=== PATIENT | male | born 1950 | race Caucasian/White ===

== ENCOUNTER 2017-04-23 15:23 | Inpatient (IN) ==
[2017-04-23] MEDS ORDERED: *HR* Adenosine 6 MG/2 ML VIAL IVP ONE ×2 (15:29)
[2017-04-23] MEDS ORDERED: *HR* Dextrose 50 % in Water (Syg) 50 ML SYRINGE IVP PRN ×2 (15:30→19:03)
[2017-04-23] MEDS: 0.9 % Sodium Chloride 1,000 ML IVC SCH ×5 (15:45→23:08)
--- NOTE | 2017-04-23 15:55 | Emergency Department Note ---
Disposition Clinical Impression: UMU (acute kidney injury), Atrial fibrillation with RVR, Lactic acidosis Hypotension Qualifiers: Hypotension type: hypotension due to drug Qualified Code(s): I95.2 - Hypotension due to drugs Disposition: Admitted As Inpatient Condition: Fair Referrals: NO,PCP [Non-Partnered Physician] - Forms: ED Satisfaction Letter Time of Disposition: 18:06 General Adult HPI - General Chief complaint: ED Arrhythmia/Palpitations Stated complaint: SVT/weakness Time Seen by Provider: 04/23/17 15:29 Source: patient, family, EMS Limitations: no limitations Nursing Notes Reviewed: Yes Vital Signs Reviewed: Yes - History of Present Illness HPI Narrative: History of present illness: 67-year-old male via EMS for "SVT". Patient states he is keh-xkwpvlg-wmlhdmnqj diabetic and is "not feeling well" for the past 2-3 days. Some episodes of loose stool nausea but no vomiting. [place] chills but no fever. No ill contacts no trauma no recent medication changes. No new chest pain or shortness of breath. No visual disturbances or skin rashes. No abdominal pain or headache or neck stiffness. No rashes. Just seen in his primary care provider's office yesterday by another provider since his main PCP was on vacation. He stated "everything was okay". Although he still was not feeling well. Upon arrival in the emergency department EMS said that the patient had a heart rate between 160s and 170s. Patient denies any palpitations and states he has never had this before". Patient was emergently had an IV started and we did and we administered 6 mg of IV push adenosine after an EKG and school lunch monitor showed what appeared to be a regular narrow complex supraventricular tachycardia. After the 6 mg of adenosine his heart rate actually went higher in the 200s. And the patient had a prolonged period of "not feeling well". This lasted about a minute. There was no sinus pause noted. At that point the team decided that her proceeding with a larger dose of adenosine was not warranted, she got 15 mg of IV push Cardizem which lowered the patient's blood pressure 78/52, and he is maintaining some tachycardia. We will hold off on any more cardiotonic medicines at this time and give the patient a liter of normal saline and readdress his blood pressure. Admission anticipated. This tachycardia dysrhythmia will be addressed after the pressure stabilizes with IV diltiazem. We have provided 45 minutes of critical care services for this patient at this time. Pain Scale: 0 - Related Data Allergies Allergy/AdvReac Type Severity Reaction Status Date / Time Penicillins Allergy See Verified 04/23/17 15:33 Comments Past Medical History - Past Medical History Medical history: Reports: diabetes, hyperlipidemia, hypertension - Social History Smoking Status: Former smoker Smokeless Tobacco Status: No Alcohol use: Reports: occasionally Drug use: Reports: none Physical Exam - General Limitations: no limitations General appearance: alert Course - Reevaluation(s) Reevaluation #1: After the patient got 15 mg of Cardizem he remained hypotensive in the 90s and mid 80s. Patient got 3 L normal saline still hypotensive. Patient's troponin critically elevated at 0.08, and his when necessary creatinine are elevated at 60 over 2.2. There are no labs for reference comparison. Patient says that despite getting 3 L of normal saline he has not had any urine output yet. Patient is getting a fourth liter of normal saline. And then will begin on the fifth until he has urine output. We will consult with cardiology at that point if his blood pressure and heart rate did not change at that point. I did an additional 35 minutes of critical care services for this patient with admission and anticipated Time: 17:20 Reevaluation #2: Patient is on his fifth liter of normal saline. Still has not felt the urge to urinate and has no trouble breathing his lung ponce are clear. Patient's systolic is about 94/60 diastolic. Patient's pressure was still too low to consider giving IV Cardizem drip at this time. Lactic acid elevated at 2.9. Patient has several things going on persistent hypotension, persistent atrial fibrillation with rapid ventricular response, lactic acidosis. An acute kidney injury. Patient will be admitted. Hospitalist has been paged. Admission pending. Time: 17:58 Reevaluation #3: Discussed case with the hospitalist Dr. Hammer, patient accepted for admission in stable condition Time: 18:05 Vital Signs Temperature 98.2 F 04/23/17 15:24 Pulse Rate 168 04/23/17 15:24 Respiratory Rate 22 04/23/17 15:24 Blood Pressure 129/101 04/23/17 15:24 O2 Sat by Pulse Oximetry 99 04/23/17 15:24 Temperature 98.2 F 04/23/17 15:24 Pulse Rate 164 04/23/17 17:29 Respiratory Rate 20 04/23/17 17:29 Blood Pressure 89/63 04/23/17 17:29 O2 Sat by Pulse Oximetry 100 04/23/17 17:29 Oxygen Delivery Oxygen Delivery Nasal Cannula Medical Decision Making - Medical Records Medical records reviewed: Yes I reviewed the patient's medical records. - Lab Data Lab results reviewed: Yes I reviewed the patient's lab results. Result diagrams: 04/23/17 15:50 04/23/17 15:50 Lab Results 04/23/17 04/23/17 04/23/17 Range/Units 15:50 15:50 15:50 WBC 3.4 L (4.3-11.1) K/mcL RBC 5.50 (4.19-5.50) M/mcL Hgb 15.7 (12.9-16.9) g/dL Hct 46.8 (37.5-50.1) % MCV 85.1 (83.0-100.0) fL MCH 28.5 (28.0-33.3) pg MCHC 33.5 (31.6-35.5) g/dL RDW 15.6 H (11.5-14.5) % Plt Count 81 L (140-400) K/mcL MPV 9.7 (9.4-12.4) fL Seg Neutrophils % 74.0 % Band Neutrophils % 16.0 H (0-4) % Lymphocytes % 4.0 % Monocytes % 6.0 % Neutrophils # 3.1 (1.6-8.9) K/mcL Lymphocytes # 0.1 L (0.6-4.6) K/mcL Monocytes # 0.2 (0.0-1.3) K/mcL Platelet Estimate Decreased L (Normal) VBG pH (7.32-7.42) pH Units VBG pCO2 (41-51) mmHg VBG pO2 (25-40) mmHg VBG HCO3 (21-27) mEq/L Sodium 134 L (136-145) mEq/L Potassium 4.0 (3.5-4.5) mEq/L Chloride 100 (98-109) mEq/L Carbon Dioxide 20 (19-29) mEq/L BUN 60 H (8-26) mg/dL Creatinine 2.21 H (0.72-1.25) mg/dL Est GFR ( Amer) 36 L (> 60) Est GFR (Non-Af Amer) 30 L (> 60) BUN/Creatinine Ratio 27 H (6-26) Glucose 115 H (70-99) mg/dL Calculated Osmolality 296 (280-300) Lactic Acid 2.9 H (0.5-2.2) mmol/L Calcium 9.2 (8.6-10.8) mg/dL Troponin I (0-0.03) ng/mL Beta-Hydroxybutyric Acd 0.90 H (0.02-0.27) mmol/L 04/23/17 04/23/17 Range/Units 15:50 15:50 WBC (4.3-11.1) K/mcL RBC (4.19-5.50) M/mcL Hgb (12.9-16.9) g/dL Hct (37.5-50.1) % MCV (83.0-100.0) fL MCH (28.0-33.3) pg MCHC (31.6-35.5) g/dL RDW (11.5-14.5) % Plt Count (140-400) K/mcL MPV (9.4-12.4) fL Seg Neutrophils % % Band Neutrophils % (0-4) % Lymphocytes % % Monocytes % % Neutrophils # (1.6-8.9) K/mcL Lymphocytes # (0.6-4.6) K/mcL Monocytes # (0.0-1.3) K/mcL Platelet Estimate (Normal) VBG pH 7.31 L (7.32-7.42) pH Units VBG pCO2 44 (41-51) mmHg VBG pO2 18 L (25-40) mmHg VBG HCO3 22.2 (21-27) mEq/L Sodium (136-145) mEq/L Potassium (3.5-4.5) mEq/L Chloride (98-109) mEq/L Carbon Dioxide (19-29) mEq/L BUN (8-26) mg/dL Creatinine (0.72-1.25) mg/dL Est GFR ( Amer) (> 60) Est GFR (Non-Af Amer) (> 60) BUN/Creatinine Ratio (6-26) Glucose (70-99) mg/dL Calculated Osmolality (280-300) Lactic Acid (0.5-2.2) mmol/L Calcium (8.6-10.8) mg/dL Troponin I 0.08 H* (0-0.03) ng/mL Beta-Hydroxybutyric Acd (0.02-0.27) mmol/L - Radiology Data Radiology results reviewed: Yes I reviewed the patient's radiology results. - EKG Data EKG #1 EKG attestation: Yes I reviewed and interpreted this EKG. EKG results narrative: Twelve-lead EKG interpreted without Cardiologic assistance shows a supraventricular rhythm of atrial flutter or tachycardia with rapid ventricular response of 168 bpm. Jainism of 100 ms and QT corrected [address] . [address], T-wave changes noted. No acute changes compared to his prior EKG dated 11/26/2009
[2017-04-23 15:59] LABS: VBG HCO3 22.2 mEq/L (21-27); VBG PH 7.31 pH Units (7.32-7.42)
[2017-04-23 16:01] LABS: Hematocrit 46.8 % (37.5-50.1); Hemoglobin 15.7 g/dL (12.9-16.9); Mean Corpuscular HGB Conc 33.5 g/dL (31.6-35.5); Mean Corpuscular Hemoglobin 28.5 pg (28.0-33.3); Mean Corpuscular Volume 85.1 fL (83.0-100.0); Mean Platelet Volume 9.7 fL (9.4-12.4); Red Cell Distribution Width 15.6 % (11.5-14.5)
[2017-04-23 16:02] LABS: Platelet Count 81 K/mcL (140-400)
[2017-04-23 16:21] LABS: Calcium 9.2 mg/dL (8.6-10.8)
[2017-04-23 16:57] LABS: Lymphocytes # 0.1 K/mcL (0.6-4.6); Monocytes # 0.2 K/mcL (0.0-1.3); Neutrophils # 3.1 K/mcL (1.6-8.9); Platelet Estimate Decreased (Normal)
[2017-04-23 17:05] LABS: Beta-Hydroxybutyric Acid 0.9 mmol/L (0.02-0.27)
[2017-04-23] MEDS ORDERED: 0.9 % Sodium Chloride 1,000 ML IVC ONE ×2 (17:19→17:54)
[2017-04-23] MEDS ORDERED: Acetaminophen 325 MG TABLET PO PRN (18:58)
[2017-04-23] MEDS ORDERED: Naloxone 0.4 MG/ML INJ IVP PRN (18:58)
[2017-04-23] MEDS ORDERED: *HR* Morphine 2 MG/ML SYRINGE IVP PRN (18:58)
[2017-04-23] MEDS ORDERED: Ondansetron 4 MG/2 ML VIAL IVP PRN (18:58)
[2017-04-23] MEDS ORDERED: Dextrose Gel 15 GM PO PRN ×2 (19:03)
[2017-04-23] MEDS ORDERED: D5% in Water 1,000 ML IVC PRN (19:03)
--- NOTE | 2017-04-23 19:13 | Internal Med History&Physical ---
Date of Encounter: 04/23/17 Time of Encounter: 18:30 Assessment and Plan (1) Atrial fibrillation with RVR Current visit: Yes Status: Acute Atrial fibrillation with RVR - new onset - unclear etiology Continue IV fluids, IV Cardizem drip Hold anticoagulation due to melena Cardiology consult Troponin - 0.08, trend Chest x-ray - no acute process Echocardiogram pending Cardiac telemetry, continuous pulse ox Labs in a.m. Repeat EKG in a.m. (2) UMU (acute kidney injury) Current visit: Yes Status: Acute Acute kidney injury likely secondary to dehydration and volume depletion due to diarrhea and poor by mouth intake Continue IV fluids Labs in a.m. (3) Hypotension Current visit: Yes Status: Acute Hypotension - likely due to volume depletion/dehydration and diarrhea improving with fluid boluses Continue IV fluids, monitor closely Qualifiers: Hypotension type: unspecified hypotension type Qualified Code(s): I95.9 - Hypotension, unspecified (4) Melena Current visit: Yes Status: Acute Diarrhea with dark stool, no bright red blood - will need further evaluation Fecal Hemoccult pending C. 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 De La Rosa is a 67 year old male with PMH of diabetes, hypertension and hyperlipidemia. He presents to the ED with complaints of generalized weakness and lightheadedness, palpitations and dizziness. Patient states symptoms started on the April. Patient does complain of intermittent palpitations. Symptoms have gradually worsened. He decided come in today because he had shortness of breath on exertion and his lightheadedness and generalized weakness was worsening. Patient denies chest pain. Patient also complains that for the past 2-3 days he has had diarrhea with dark stool. No blood in stool. He denies abdominal pain or vomiting. Patient states he has not experienced symptoms like this before. No alleviating factors. No other associated symptoms. Initial evaluation revealed A. fib with RVR. Patient was also hypotensive and his creatinine and troponin are elevated. He has been given fluid boluses in the ER. On examination patient is awake and alert. Not in any distress. Able to provide history. His son is at bedside. Patient is being admitted for atrial fibrillation with RVR and to further evaluate his melena. Cardiology consult. Serial H&H. Continue IV fluids. We will need to hold anticoagulation as patient has melena. Continue home medications. Patient and son have been explained about his guarded condition and plan of care. Understood and agreed. No unanswered questions. CODE STATUS full code. Past Med Surg Social Fam HX - Past Medical History Medical history: diabetes, hyperlipidemia, hypertension - Past Surgical History Surgical History: orthopedic, other - Social History Smoking Status: Former smoker Smokeless Tobacco Status: No Alcohol use: occasionally Drug use: none Internal Medicine - H&P: Meds Aspirin 325 mg PO QAM 04/23/17 [History] Atorvastatin [Lipitor] 40 mg PO QPM 04/23/17 [History] Azithromycin [Azithromycin 6-Tab Pack] 250 mg PO PER PKG DI 04/23/17 [History] GlipiZIDE [Glipizide Xl] 5 mg PO QAM 04/23/17 [History] Lisinopril [Zestril] 20 mg PO QPM 04/23/17 [History] Loratadine [Claritin] 10 mg PO QAM 04/23/17 [History] Metformin HCl [Glucophage] 1,000 mg PO QAM 04/23/17 [History] Multivit-Min/FA/Lycopen/Lutein [Centrum Silver Tablet] 1 each PO QAM 04/23/17 [ History] metFORMIN [Glucophage] 500 mg PO QPM 04/23/17 [History] Allergies Penicillins Allergy (Verified 04/23/17 15:33) See Comments All Systems PM: A 10-system review of systems was performed and is negative for pertinent findings except as documented above in the HPI. - Constitutional Constitutional: fatigue, weakness, no fever(s) - EENT Eyes: no blurry vision - Cardiovascular Cardiovascular ROS IM: diaphoresis, dyspnea, dyspnea on exertion, lightheadedness, no chest pain, no orthopnea, no syncope - Respiratory Respiratory: dyspnea, dyspnea on exertion, no cough, no hemoptysis, no wheezing , no chest congestion - Gastrointestinal Gastrointestinal: diarrhea, loose stools, melena, no abdominal pain, no bloating , no cramping, no hematemesis, no hematochezia, no nausea, no vomiting - Genitourinary Genitourinary ROS male: difficulty urinating - Musculoskeletal Musculoskeletal ROS IM: no arthralgias - Neurological Neurological ROS: no abnormal gait, no abnormal speech, no dizziness, no loss of vision, no memory loss - Constitutional Vitals: Temp Pulse Resp BP Pulse Ox 98.2 F 163 20 98/70 100 04/23/17 15:24 04/23/17 17:42 04/23/17 18:45 04/23/17 18:45 04/23/17 17:42 General appearance: Present: A&O X 3, pleasant, no acute distress, answers questions appropriately Exam: Ill appearing, generalized weakness - Head Head exam: Present: atraumatic - Eye Eye exam: Present: EOMI, scleral icterus (mild) - ENT ENT exam: Present: mucous membranes dry - Neck Neck exam general surgery: Present: supple - Respiratory Respiratory exam: Present: CTAB. Absent: rales, rhonchi, wheezes, tachypnea - Cardiovascular Cardiovascular exam: Present: irregular rhythm, +S1, +S2, systolic murmur, tachycardia - GI/Abdominal GI/Abdominal exam: Present: soft, tenderness (mild epigastric and periumbilical) . Absent: distended, firm, guarding, rebound, rigid - Extremities Exam Extremities exam: Present: pedal edema (b/l 2+ pitting, with chronic stasis dermatitis), radial pulses palpable and symetrical. Absent: cyanotic, tenderness - Neurological Exam Neurological exam: Present: alert, oriented X3, no focal deficits Internal Med - H&P Results - Labs CBC & Chem 7: 04/23/17 15:50 04/23/17 15:50
[2017-04-23 20:05] LABS: Hemoglobin A1C 5.4 %
[2017-04-23 20:38] LABS: Bilirubin,Urine Small (Negative); Blood,Urine Negative (Negative); Clarity,Urine Cloudy (Clear); Color,Urine Dark Yellow (Yellow); Glucose,Urine (UA) Normal (Normal); Ketones,Urine Negative (Negative); Leukocyte Esterase,Urine Negative (Negative); Nitrite,Urine Negative (Negative); PH,Urine 5.5 pH Units (5.0-8.0); Protein,Urine Trace mg/dL (Neg-Trace); Specific Gravity,Urine 1.022 (1.010-1.025); Urobilinogen,Urine Normal (Normal)
[2017-04-23 20:41] LABS: Bacteria,Urine None Seen per hpf (None-Few); Squamous Epithelial Cell,Urine Many per lpf (None-Few)
[2017-04-23 20:51] LABS: Hematocrit 42.2 % (37.5-50.1)
[2017-04-23 20:54] LABS: Hyaline Casts,Urine Moderate per lpf (None-Few)
[2017-04-23 20:57] LABS: INR 1.1; Prothrombin Time 11.6 Seconds (9.4-12.1)
[2017-04-23 21:03] LABS: Hemoglobin 14.2 g/dL (12.9-16.9)
[2017-04-23 21:08] LABS: Albumin 3.1 g/dL (3.5-5.0); Albumin/Globulin Ratio 1.1 (1.1-2.2); Bilirubin,Direct 0.9 mg/dL (0.0-0.5); Bilirubin,Indirect 1.1 mg/dL (0.0-1.2); Globulin 2.9 g/dL (2.4-3.5); Magnesium 1.5 mg/dL (1.6-2.6)
[2017-04-23] MEDS ORDERED: Insulin LISPRO 300 UNITS/3 ML VIAL SQ SCH (21:09)
[2017-04-23] MEDS ORDERED: Magnesium Sulfate 2 GM in D5% in Water 100 ML IVPB ONE (21:12)
[2017-04-23] MEDS ORDERED: Amiodarone Premix 150 MG/100 ML BAG IVPB ONE (21:32)
[2017-04-23] MEDS ORDERED: Amiodarone Premix 360 MG/200 ML BAG IVC ONE (21:32)
[2017-04-23] MEDS: Aspirin 325 MG TABLET PO SCH (21:32)
[2017-04-23] MEDS: Pantoprazole 40 MG VIAL IVP SCH (21:32)
--- NOTE | 2017-04-23 21:43 | Event Note ---
Date of Encounter: 04/23/17 Time of Encounter: 21:41 I was paged by the nurse due to concerns for elevated heart rate with hypotension. The patient was admitted this evening with Lakeisha burns with RVR and was started on a Cardizem drip. On Cardizem drip at 5 mg an hour the patient's heart rate was sustaining in the 140s to 160s with a mean arterial pressure in the high 60s however when this was attempted to titrate up to 7.5 mg per hour the patient's mean arterial pressure dropped into the 40s. I examined the patient he was asymptomatic at this time other than a generalized feeling of unwell. He denied headache, lightheadedness, dizziness, chest pain, shortness of breath, palpitations. Will discontinue Cardizem drip and start IV amiodarone.
[2017-04-23] MEDS ORDERED: Amiodarone Premix 360 MG/200 ML BAG IVC SCH ×2 (21:45→22:30)
[2017-04-24] MEDS ORDERED: MetroNIDAZOLE 500 MG/100 ML 500 MG/100 ML BAG IVPB SCH
[2017-04-24] MEDS ORDERED: Insulin LISPRO 300 UNITS/3 ML VIAL SQ SCH
[2017-04-24 01:23] LABS: Basophils % 0.5 %
[2017-04-24 01:25] LABS: Hematocrit 37.4 % (37.5-50.1); Hemoglobin 12.8 g/dL (12.9-16.9); Immature Granulocytes % 0.5 % (0-4); Lymphocytes # 0.3 K/mcL (0.6-4.6); Lymphocytes % 15.9 %; Mean Corpuscular HGB Conc 34.2 g/dL (31.6-35.5); Mean Corpuscular Hemoglobin 29.8 pg (28.0-33.3); Mean Platelet Volume 10.5 fL (9.4-12.4); Monocytes # 0.2 K/mcL (0.0-1.3); Monocytes % 10.1 %; Neutrophils # 1.5 K/mcL (1.6-8.9); Red Cell Distribution Width 15.7 % (11.5-14.5)
[2017-04-24 01:26] LABS: Platelet Count 83 K/mcL (140-400)
[2017-04-24 01:28] LABS: INR 1.1; Prothrombin Time 12.1 Seconds (9.4-12.1)
[2017-04-24 01:37] LABS: Alanine Aminotransferase 80 Units/L (0-55); Albumin 2.7 g/dL (3.5-5.0); Alkaline Phosphatase 47 Units/L (38-126); Aspartate Amino Transferase 86 Units/L (5-34); BUN/Creatinine Ratio 36 (6-26); Bilirubin,Total 1.6 mg/dL (0.2-1.2); Carbon Dioxide 18 mEq/L (19-29); Chloride 110 mEq/L (98-109); Chol/HDL Ratio 6.4 (0-4.9); Globulin 2.7 g/dL (2.4-3.5); Glucose 120 mg/dL (70-99); HDL Cholesterol 12 mg/dL (40-59); LDL Cholesterol,Calculated 13 mg/dL (0-99); Magnesium 2.2 mg/dL (1.6-2.6); Osmolality,Calculated 294 (280-300); Potassium 3.8 mEq/L (3.5-4.5); Sodium 135 mEq/L (136-145); Total Protein 5.4 g/dL (6.0-8.3); Triglycerides 261 mg/dL (< 150); eGFR For African Americans > 60 (> 60); eGFR For Non-African Americans 53 (> 60)
[2017-04-24 01:38] LABS: Blood Urea Nitrogen 48 mg/dL (8-26); Calcium 7.4 mg/dL (8.6-10.8); Cholesterol 77 mg/dL (< 200)
[2017-04-24 01:42] LABS: Platelet Estimate Decreased (Normal)
--- NOTE | 2017-04-24 07:40 | Internal Med Progress Note ---
Date of Encounter: 04/24/17 Time of Encounter: 07:35 - Assessment and plan (1) GIB (gastrointestinal bleeding) Current Visit: Yes Status: Acute Assessment and plan: Monitor hemoglobin and consider endoscopy if worsening Qualifiers: GI bleed type/associated pathology: melena Qualified Code(s): K92.1 - Melena (2) Leucopenia Current Visit: Yes Status: Acute Assessment and plan: Monitor CBC Qualifiers: Qualified Code(s): D72.819 - Decreased white blood cell count, unspecified (3) UMU (acute kidney injury) Current Visit: Yes Status: Acute Assessment and plan: Acute kidney injury versus chronic kidney disease. Monitor renal function and avoid nephrotoxins, trying to hydrate patient (4) Hypotension Current Visit: Yes Status: Acute Assessment and plan: Ointment to hydrate patient and see if it is mainly due to hypovolemia or if sepsis is involved Qualifiers: Hypotension type: unspecified hypotension type Qualified Code(s): I95.9 - Hypotension, unspecified (5) Atrial fibrillation with RVR Current Visit: Yes Status: Acute Assessment and plan: Currently on amiodarone and Cardizem drip but may need some beta blockers also to continue monitoring. 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 fib with RVR, melena, diarrhea, UMU and hypotension. Patient is started on IV Cardizem and IV amiodarone and IV Protonix. Patient is hydrated very well. His hemoglobin dropped only 2 points from 14-12 however leukocyte count and platelets have been dropped significantly to. This could be just heme dilution effect but considering the fact that patient is hypertensive and has abnormal LFTs and concerned about possibility of sepsis therefore I will go ahead and draw 2 blood cultures and start patient on IV Rocephin and Flagyl. Allergies to penicillin noted therefore we will keep an eye, also if leukopenia worsen then we will take off Rocephin. For DVT prophylaxis patient is on SCDs. Patient seems to be diaphoretic but overall he reports that he is feeling better with hydration. Will continue current treatment however still quite concerned about possibility of infection. - Constitutional Vitals: Temp Pulse Resp BP Pulse Ox 98.0 F 135 16 105/74 100 04/24/17 04:49 04/24/17 04:49 04/24/17 04:49 04/24/17 04:49 04/24/17 04:49 General appearance: Present: A&O X 3, pleasant, no acute distress, answers questions appropriately - Head Head exam: Present: atraumatic, normocephalic - Eye Eye exam: Present: PERRL, conjuntiva pink, sclera anicteric Pupils: Present: PERRL - Neck Neck exam general surgery: Present: supple, trachea midline. Absent: lymphadenopathy - Respiratory Respiratory exam: Present: CTAB. Absent: accessory muscle use, rales, rhonchi, wheezes - Cardiovascular Cardiovascular exam: Present: RRR, +S1, +S2. Absent: diastolic murmur, gallop, rubs, systolic murmur - GI/Abdominal GI/Abdominal exam: Present: normal bowel sounds, soft, no peritoneal signs. Absent: distended, tenderness - Extremities Exam Extremities exam: Present: warm, radial pulses palpable and symetrical. Absent : calf tenderness, cyanotic, pedal edema - Neurological Exam Neurological exam: Present: CN II-XII intact, oriented X3, no focal deficits. Absent: pronater drift, facial droop, speech deficit - Skin Skin exam: Present: dry, intact Internal Medicine: Result - Labs CBC & Chem 7: 04/24/17 00:55 04/24/17 00:55 Labs: Short CBC 04/23/17 04/24/17 Range/Units 20:33 00:55 WBC 2.1 L (4.3-11.1) K/mcL Hgb 14.2 D 12.8 L (12.9-16.9) g/dL Hct 42.2 37.4 L (37.5-50.1) % Plt Count 83 L (140-400) K/mcL Neutrophils # 1.5 L (1.6-8.9) K/mcL BMP 04/24/17 00:55 Sodium 135 L Potassium 3.8 Chloride 110 H Carbon Dioxide 18 L BUN 48 H D Creatinine 1.34 H Glucose 120 H Calcium 7.4 L D Cardiac Enzymes 04/23/17 04/24/17 04/24/17 Range/Units 20:33 00:55 06:52 Troponin I 0.08 H* 0.07 H* 0.04 H* (0-0.03) ng/mL Liver Function 04/23/17 04/24/17 Range/Units 20:33 00:55 Total Bilirubin 2.0 H 1.6 H (0.2-1.2) mg/dL Direct Bilirubin 0.9 H (0.0-0.5) mg/dL AST 90 H 86 H (5-34) Units/L ALT 87 H 80 H (0-55) Units/L Alkaline Phosphatase 53 47 (38-126) Units/L Albumin 3.1 L 2.7 L (3.5-5.0) g/dL Urine 04/23/17 Range/Units 20:17 Urine Color Dark Yellow (Yellow) Urine Clarity Cloudy A (Clear) Urine pH 5.5 (5.0-8.0) pH Units Ur Specific [place] 1.022 (1.010-1.025) Urine Protein Trace (Neg-Trace) mg/dL Urine Glucose (UA) Normal (Normal) mg/dL - ABG Interpretation ABG results: PT/INR, D-dimer PT 12.1 Seconds (9.4-12.1) 04/24/17 00:55 - VTE Documentation of Mechanical Device: Intermittent pneumatic compression device Consult Discharge Plan - Plan Referrals: Yan Villavicencio DO [Primary Care Provider] -
[2017-04-24] MEDS: 0.9 % Sodium Chloride 1,000 ML IVC SCH ×7 (07:52→23:47)
[2017-04-24] MEDS: Insulin LISPRO 300 UNITS/3 ML VIAL SQ SCH ×4 (08:16→21:34)
[2017-04-24] MEDS: MetroNIDAZOLE 500 MG/100 ML 500 MG/100 ML BAG IVPB SCH ×3 (09:42→23:41)
[2017-04-24] MEDS: Pantoprazole 40 MG VIAL IVP SCH (09:45)
[2017-04-24] MEDS: Aspirin 325 MG TABLET PO SCH (09:48)
[2017-04-24] MEDS: Multivit/Ca/Min/Fe/FA 1 TAB TABLET PO SCH (09:48)
--- NOTE | 2017-04-24 11:23 | Cardiology Consult Note ---
<YossiChrista Rodriguez - Last Filed: 04/24/17 13:02> Date of Encounter: 04/24/17 Time of Encounter: 08:00 Assessment and Plan (1) Atrial fibrillation with RVR Current Visit: Yes Status: Acute New onset atrial fibrillation/flutter--unclear etiology and chronicity. Flu like symptoms for nearly 1 week. Pancytopenia noted. Lactic acid 2.9. Rate remains uncontrolled--BP improved after IVF given (5 liters in ED); hypotension likely d/t dehydration. Mag=1.5, improved after replacement. Potassium stable, will add TSH. Recommend rate control strategy. Betablocker started this AM. Amiodarone not ideal d/t unable to anticoagulate, will change to cardizem gtt. Titrate to keep HR less than 100 Anticipate difficulty controlled rate until underlying issue has resolved. CHA2Ds Vasc= 3 (HTN, DMII, age); unfortunately not a candidate for AC due to melena, + occult stool, and thrombocytopenia. Continue asa only. May consider trial of AC in the future if melena resolves/GI work-up complete. (2) Elevated troponin Current Visit: Yes Status: Acute Mild, adynamic troponin elevation in the setting of afib/flutter with RVR, UMU, and GI bleed. This likely represents demand ischemia, patient is chest pain free. Continue asa, statin, and betablocker. Echocardiogram pending. (3) UMU (acute kidney injury) Current Visit: Yes Status: Acute Baseline kidney function unknown. UMU upon presentation, kidney function improved this AM. Defer mgmt to primary service. (4) GIB (gastrointestinal bleeding) Current Visit: Yes Status: Acute Defer further mgmt to primary service. Recommend GI evaluation. Qualifiers: GI bleed type/associated pathology: melena Qualified Code(s): K92.1 - Melena Discussion w patient/family: The assessment and plan as outlined above was discussed with the patient and/or family members who expressed understanding and agreement. All questions were answered. Thank you for involving us in the care of your patient. Please call with any questions. The patient will be discussed and reviewed with Dr. Goss; changes to be made accordingly. History of Present Illness Consult date: 04/24/17 Requesting physician: Jeremiah Blanco Consult reason: Afib/flutter Chief complaint: Weakness History of present illness: Mr. De La Rosa is a 67 year old male with PMHx significant for DMII, HTN, HLD, and suspected PVD who presented to the ED with 3-4 day history of generalized weakness, fatigue, and malaise. He reports poor po intake since Wednesday, reports diarrhea. Upon arrival to ED, he was hypotensive and tachycardiac and given a total of 5L of fluid. He was given IV adenosine which reportedly did not improve HR, was then given IV cardizem and hypotension worsened. UMU noted upon admission, occult stool was positive. H/H stable. He was then started on amiodarone gtt and transferred to the floor. Past Med Surg Social Fam HX - Past Medical History Attestation: Yes The following information was validated with the patient. Source: patient Medical history: diabetes, hyperlipidemia, hypertension - Past Surgical History Surgical History: herniorrhaphy, orthopedic, other - Social History Smoking Status: Former smoker Smokeless Tobacco Status: No Alcohol use: occasionally Drug use: none Medications and Allergies Aspirin 325 mg PO QAM 04/23/17 [History] Atorvastatin [Lipitor] 40 mg PO QPM 04/23/17 [History] Azithromycin [Azithromycin 6-Tab Pack] 250 mg PO PER PKG DI 04/23/17 [History] GlipiZIDE [Glipizide Xl] 5 mg PO QAM 04/23/17 [History] Lisinopril [Zestril] 20 mg PO QPM 04/23/17 [History] Loratadine [Claritin] 10 mg PO QAM 04/23/17 [History] Metformin HCl [Glucophage] 1,000 mg PO QAM 04/23/17 [History] Multivit-Min/FA/Lycopen/Lutein [Centrum Silver Tablet] 1 each PO QAM 04/23/17 [ History] metFORMIN [Glucophage] 500 mg PO QPM 04/23/17 [History] Allergies bee venom protein (honey bee) Allergy (Verified 04/24/17 07:00) See Comments Penicillins Allergy (Verified 04/23/17 15:33) See Comments All Systems Review: A 10-system review of systems was performed and is negative for pertinent findings except as documented above in the HPI. - Cardiovascular Cardiovascular: as per HPI Physical Examination Vital Signs, Last 4 Hours Temp Pulse Resp BP Pulse Ox 04/24/17 10:00 111 111/77 100 04/24/17 09:30 121 88/66 04/24/17 08:45 132 119/90 04/24/17 07:59 98 F 128 18 112/78 99 General: Conversant, Other (appears diaphoretic, acutely ill) HEENT: Atraumatic, Normocephaly Cardiac: Other (irregularly irregular) Lungs: Normal Breath Sounds Neuro: Alert and responsive Abdomen: Soft Skin: No rashes noted on visualized skin Musculoskeletal: No Chest Wall Tenderness Extremities: Other (signficant discoloration to BLE (dark purple in appearance) ; patient states chronic) Results 04/24/17 00:55 04/24/17 00:55 Lab Results 04/23/17 04/23/17 04/23/17 20:33 20:33 20:33 WBC Hgb Hct Plt Count INR 1.1 Sodium Potassium Chloride Carbon Dioxide BUN Creatinine Glucose Calcium Magnesium Total Bilirubin AST ALT Alkaline Phosphatase Troponin I 0.08 H* B-Natriuretic Peptide 172 H 04/23/17 04/23/17 04/24/17 20:33 20:33 00:55 WBC Hgb 14.2 D Hct 42.2 Plt Count INR Sodium Potassium Chloride Carbon Dioxide BUN Creatinine Glucose Calcium Magnesium 1.5 L Total Bilirubin 2.0 H AST 90 H ALT 87 H Alkaline Phosphatase 53 Troponin I 0.07 H* B-Natriuretic Peptide 04/24/17 04/24/17 04/24/17 00:55 00:55 00:55 WBC 2.1 L Hgb 12.8 L Hct 37.4 L Plt Count 83 L INR 1.1 Sodium 135 L Potassium 3.8 Chloride 110 H Carbon Dioxide 18 L BUN 48 H D Creatinine 1.34 H Glucose 120 H Calcium 7.4 L D Magnesium 2.2 Total Bilirubin 1.6 H AST 86 H ALT 80 H Alkaline Phosphatase 47 Troponin I B-Natriuretic Peptide 04/24/17 06:52 WBC Hgb Hct Plt Count INR Sodium Potassium Chloride Carbon Dioxide BUN Creatinine Glucose Calcium Magnesium Total Bilirubin AST ALT Alkaline Phosphatase Troponin I 0.04 H* B-Natriuretic Peptide - Imaging and Cardiology Echo: pending Other Results: 12 hour tele: avg HR 130 afib - EKG Interpretation EKG results cardiology: personally reviewed Consult Discharge Plan - Plan Referrals: Yan Villavicencio DO [Primary Care Provider] - <Dorita Goss - Last Filed: 04/24/17 16:53> Date of Encounter: 04/24/17 Assessment and Plan Discussion w patient/family: The assessment and plan as outlined above was discussed with the patient and/or family members who expressed understanding and agreement. All questions were answered. Thank you for involving us in the care of your patient. Please call with any questions. History of Present Illness History of present illness: Mr. De La Rosa is a 67 year old male All Systems Review: A 10-system review of systems was performed and is negative for pertinent findings except as documented above in the HPI. Physical Examination Vital Signs, Last 4 Hours Temp Pulse Resp BP Pulse Ox 04/24/17 16:32 115 04/24/17 16:28 106 112/84 04/24/17 16:06 126 116/86 04/24/17 15:30 121 117/67 04/24/17 15:23 128 04/24/17 15:10 98.0 F 128 16 110/77 99 04/24/17 14:36 122 117/63 04/24/17 14:00 124 100/68 04/24/17 13:31 118 113/81 04/24/17 13:00 117 65/39 Results 04/24/17 00:55 04/24/17 00:55 Lab Results 04/23/17 04/23/17 04/23/17 20:33 20:33 20:33 WBC Hgb Hct Plt Count INR 1.1 Sodium Potassium Chloride Carbon Dioxide BUN Creatinine Glucose Calcium Magnesium Total Bilirubin AST ALT Alkaline Phosphatase Troponin I 0.08 H* B-Natriuretic Peptide 172 H 04/23/17 04/23/17 04/24/17 20:33 20:33 00:55 WBC Hgb 14.2 D Hct 42.2 Plt Count INR Sodium Potassium Chloride Carbon Dioxide BUN Creatinine Glucose Calcium Magnesium 1.5 L Total Bilirubin 2.0 H AST 90 H ALT 87 H Alkaline Phosphatase 53 Troponin I 0.07 H* B-Natriuretic Peptide 04/24/17 04/24/17 04/24/17 00:55 00:55 00:55 WBC 2.1 L Hgb 12.8 L Hct 37.4 L Plt Count 83 L INR 1.1 Sodium 135 L Potassium 3.8 Chloride 110 H Carbon Dioxide 18 L BUN 48 H D Creatinine 1.34 H Glucose 120 H Calcium 7.4 L D Magnesium 2.2 Total Bilirubin 1.6 H AST 86 H ALT 80 H Alkaline Phosphatase 47 Troponin I B-Natriuretic Peptide 04/24/17 06:52 WBC Hgb Hct Plt Count INR Sodium Potassium Chloride Carbon Dioxide BUN Creatinine Glucose Calcium Magnesium Total Bilirubin AST ALT Alkaline Phosphatase Troponin I 0.04 H* B-Natriuretic Peptide - Attending Attestation I examined this patient and my medical decision-making was reviewed with the MECHANIC HELPER/PA/Advanced Practice Nurse/Resident Physician. I agree with the documented findings, disposition and treatment plan. Mr. De La Rosa presents with newly discovered AF/AFL RVR in setting of flu like symptoms for the past week. Noted on labs is pancytopenia of unclear etiology. Will defer to primary team for further evaluation. Recommend rate control strategy at this time and treatment of underlying inciting etiology. Not an ideal candidate for anticoagulation given concern for GIB and stool occult positive. Agree with low dose aspirin at this time until further GI workup.
[2017-04-25 01:24] LABS: Basophils % 0.4 %; Red Cell Distribution Width 15.3 % (11.5-14.5)
[2017-04-25 01:26] LABS: Eosinophils % 1.7 %; Hematocrit 36.7 % (37.5-50.1); Hemoglobin 12.3 g/dL (12.9-16.9); Immature Granulocytes % 0.4 % (0-4); Lymphocytes # 0.6 K/mcL (0.6-4.6); Lymphocytes % 25.2 %; Mean Corpuscular HGB Conc 33.5 g/dL (31.6-35.5); Mean Corpuscular Hemoglobin 28.6 pg (28.0-33.3); Mean Corpuscular Volume 85.3 fL (83.0-100.0); Mean Platelet Volume 10.2 fL (9.4-12.4); Monocytes # 0.2 K/mcL (0.0-1.3); Monocytes % 8.4 %; Neutrophils # 1.5 K/mcL (1.6-8.9); Segmented Neutrophils % 63.9 %
[2017-04-25 01:40] LABS: Alanine Aminotransferase 84 Units/L (0-55); Albumin 2.6 g/dL (3.5-5.0); Alkaline Phosphatase 58 Units/L (38-126); Aspartate Amino Transferase 81 Units/L (5-34); BUN/Creatinine Ratio 27 (6-26); Bilirubin,Total 1.1 mg/dL (0.2-1.2); Blood Urea Nitrogen 23 mg/dL (8-26); Calcium 7.9 mg/dL (8.6-10.8); Carbon Dioxide 20 mEq/L (19-29); Chloride 109 mEq/L (98-109); Globulin 2.7 g/dL (2.4-3.5); Glucose 127 mg/dL (70-99); Magnesium 1.6 mg/dL (1.6-2.6); Osmolality,Calculated 283 (280-300); Potassium 3.6 mEq/L (3.5-4.5); Sodium 134 mEq/L (136-145); Total Protein 5.3 g/dL (6.0-8.3); eGFR For African Americans > 60 (> 60); eGFR For Non-African Americans > 60 (> 60)
[2017-04-25 01:43] LABS: Platelet Count 81 K/mcL (140-400)
[2017-04-25 01:45] LABS: Platelet Estimate Decreased (Normal)
[2017-04-25 02:02] LABS: Thyroid Stimulating Hormone 3.832 mcIU/mL (0.350-4.840)
[2017-04-25] MEDS: Insulin LISPRO 300 UNITS/3 ML VIAL SQ SCH ×4 (08:05→20:44)
[2017-04-25] MEDS: MetroNIDAZOLE 500 MG/100 ML 500 MG/100 ML BAG IVPB SCH ×3 (08:10→23:54)
[2017-04-25] MEDS: Pantoprazole 40 MG VIAL IVP SCH (08:11)
[2017-04-25] MEDS: Multivit/Ca/Min/Fe/FA 1 TAB TABLET PO SCH (08:11)
[2017-04-25] MEDS: Aspirin Enteric Coated 81 MG Tablet PO SCH (08:11)
--- NOTE | 2017-04-25 08:43 | Internal Med Progress Note ---
Date of Encounter: 04/25/17 Time of Encounter: 08:38 - Assessment and plan (1) GIB (gastrointestinal bleeding) Current Visit: Yes Status: Acute Qualifiers: GI bleed type/associated pathology: melena Qualified Code(s): K92.1 - Melena (2) Leucopenia Current Visit: Yes Status: Acute Qualifiers: Qualified Code(s): D72.819 - Decreased white blood cell count, unspecified (3) UMU (acute kidney injury) Current Visit: Yes Status: Resolved Assessment and plan: With IV fluid hydration and renal function are back to normal and AK resolved (4) Hypotension Current Visit: Yes Status: Acute Qualifiers: Hypotension type: unspecified hypotension type Qualified Code(s): I95.9 - Hypotension, unspecified (5) Atrial fibrillation with RVR Current Visit: Yes Status: Acute Assessment and plan: Target is to rate control and appropriate anti-consultation in the setting of heme positive stools (6) DVT prophylaxis Current Visit: Yes Status: Acute (7) Type 2 diabetes mellitus Current Visit: Yes Status: Acute Assessment and plan: Accu-Chek 4 times a day with sliding scale coverage Qualifiers: Diabetes mellitus complication status: without complication Diabetes mellitus senior living insulin use: without senior living use Qualified Code(s): E11.9 - Type 2 diabetes mellitus without complications - Subjective Interval history: Delon De La Rosa is a 67-year-old male past medical history significant for diabetes presented with a new onset A. fib with RVR, melena, diarrhea, UMU and hypotension. Patient is started on IV Cardizem and IV amiodarone and IV Protonix. Patient is hydrated very well. His hemoglobin dropped only 2 points from 14-12 however leukocyte count and platelets have been dropped significantly to. This could be just heme dilution effect but considering the fact that patient is hypertensive and has abnormal LFTs and concerned about possibility of sepsis therefore I will go ahead and draw 2 blood cultures and start patient on IV Rocephin and Flagyl. Allergies to penicillin noted therefore we will keep an eye, also if leukopenia worsen then we will take off Rocephin. For DVT prophylaxis patient is on SCDs. Patient seems to be diaphoretic but overall he reports that he is feeling better with hydration. Will continue current treatment however still quite concerned about possibility of infection. 04/25 patient heart rate is in the 100. Despite positive Hemoccult test hemoglobin remained stable indicating that patient is not actively bleeding and in such case and Coumadin can be tried. Will wait for cardiology to render their opinion regarding anticoagulation as well as switching to oral medication. Echocardiogram showed normal LV systolic function and mild diastolic dysfunction but no valvular abnormality or pulmonary hypertension. Ejection fraction was not estimated. Patient has been 6 L positive in last 48 hours I's and O's and his renal functions have improved however I will continue IV fluid at the rate of 100 mL an hour for another day. White cell count has slightly improved at 2.4 so far no sign of infection but since he is hydrated well and repeat chest x-ray today. Platelets remained same as well as LFTs which are slightly abnormal. Metoprolol has been increased to 50 twice a day, simvastatin has been restarted, echo reviewed and chest x-ray ordered - Constitutional Vitals: Temp Pulse Resp BP Pulse Ox 98.0 F 97 18 110/83 98 04/25/17 06:58 04/25/17 06:58 04/25/17 06:58 04/25/17 06:59 04/25/17 06:58 General appearance: Present: A&O X 3, pleasant, no acute distress, answers questions appropriately - Head Head exam: Present: atraumatic, normocephalic - Eye Eye exam: Present: PERRL, conjuntiva pink, sclera anicteric Pupils: Present: PERRL - Neck Neck exam general surgery: Present: supple, trachea midline. Absent: lymphadenopathy - Respiratory Respiratory exam: Present: CTAB. Absent: accessory muscle use, rales, rhonchi, wheezes - Cardiovascular Cardiovascular exam: Present: RRR, +S1, +S2. Absent: diastolic murmur, gallop, rubs, systolic murmur - GI/Abdominal GI/Abdominal exam: Present: normal bowel sounds, soft, no peritoneal signs. Absent: distended, tenderness - Extremities Exam Extremities exam: Present: warm, radial pulses palpable and symetrical. Absent : calf tenderness, cyanotic, pedal edema - Neurological Exam Neurological exam: Present: CN II-XII intact, oriented X3, no focal deficits. Absent: pronater drift, facial droop, speech deficit - Skin Skin exam: Present: dry, intact Internal Medicine: Result - Labs CBC & Chem 7: 04/25/17 00:54 04/25/17 00:54 Labs: Short CBC 04/25/17 Range/Units 00:54 WBC 2.4 L (4.3-11.1) K/mcL Hgb 12.3 L (12.9-16.9) g/dL Hct 36.7 L (37.5-50.1) % Plt Count 81 L (140-400) K/mcL Neutrophils # 1.5 L (1.6-8.9) K/mcL BMP 04/25/17 00:54 Sodium 134 L Potassium 3.6 Chloride 109 Carbon Dioxide 20 BUN 23 D Creatinine 0.86 Glucose 127 H Calcium 7.9 L Liver Function 04/25/17 Range/Units 00:54 Total Bilirubin 1.1 (0.2-1.2) mg/dL AST 81 H (5-34) Units/L ALT 84 H (0-55) Units/L Alkaline Phosphatase 58 (38-126) Units/L Albumin 2.6 L (3.5-5.0) g/dL - ABG Interpretation ABG results: PT/INR, D-dimer PT 12.1 Seconds (9.4-12.1) 04/24/17 00:55 - VTE Documentation of Mechanical Device: Intermittent pneumatic compression device Consult Discharge Plan - Plan Referrals: Yan Villavicencio DO [Primary Care Provider] -
--- NOTE | 2017-04-25 10:49 | Cardiology Progress Note ---
Date of Encounter: 04/25/17 Time of Encounter: 09:20 Assessment and Plan (1) Atrial fibrillation with RVR Current Visit: Yes Status: Acute New onset atrial fibrillation/flutter--unclear etiology and chronicity. Flu like symptoms for nearly 1 week. Pancytopenia noted. Lactic acid 2.9. Rate remains uncontrolled--BP improved after IVF given (5 liters in ED); hypotension likely d/t dehydration. Mag=1.5, improved after replacement. Potassium stable, TSH normal. HR improved, now low 100's. Agree with increase in betablocker. Will transition to short-acting cardizem today--recommend transition to LA by discharge. Anticipate difficulty controlled rate until underlying issue has resolved. TTE: no significant valvular dysfunction, unable to determine LVEF given RVR. Recommend repeating in outpatient setting. CHA2Ds Vasc= 3 (HTN, DMII, age); unfortunately not a candidate for AC due to melena, + occult stool, and thrombocytopenia. Continue asa only. May consider trial of AC in the future if melena resolves/GI work-up complete. Also recommend further evaluation of thrombocytopenia (new dx) of unclear etiology prior to starting AC, consider hematology consult. Patient is aware of increased risk of CVA. No further recommendations, continue supportive care per IM. Cardiology will sign-off; please call with questions. (2) Elevated troponin Current Visit: Yes Status: Acute Mild, adynamic troponin elevation in the setting of afib/flutter with RVR, UMU, and GI bleed. This likely represents demand ischemia, patient is chest pain free. Continue asa, statin, and betablocker. Consider repeating TTE in the outpatient setting once HR control improved. (3) UMU (acute kidney injury) Current Visit: Yes Status: Resolved Baseline kidney function unknown. UMU upon presentation, kidney function continues to improve. Defer mgmt to primary service. (4) GIB (gastrointestinal bleeding) Current Visit: Yes Status: Acute Defer further mgmt to primary service. Recommend GI evaluation. Qualifiers: GI bleed type/associated pathology: melena Qualified Code(s): K92.1 - Melena Discussion w patient/family: The assessment and plan as outlined above was discussed with the patient and/or family members who expressed understanding and agreement. All questions were answered. Thank you for involving us in the care of your patient. Please call with any questions. The patient was discussed and reviewed with Dr. Goss; Cardiology will sign-off , please call with questions. Subjective Principal diagnosis: Afib with RVR Interval history: Seen and examined. Reports feels better today, remains weak. States dark BM last night. HR improved. Objective Vital Signs, Last 4 Hours Temp Pulse Resp BP Pulse Ox 04/25/17 09:42 103 16 119/88 95 04/25/17 09:39 103 16 119/88 95 04/25/17 09:05 92 16 130/91 93 04/25/17 08:41 93 04/25/17 08:30 104 109/78 04/25/17 08:05 97 102/89 04/25/17 08:00 114 04/25/17 07:20 113 106/82 04/25/17 07:15 102 110/84 04/25/17 07:10 98 106/76 04/25/17 07:07 111 16 108/93 96 04/25/17 06:59 110/83 04/25/17 06:58 98.0 F 97 18 108/75 98 General: Conversant, No Apparent Distress HEENT: Atraumatic, Normocephaly, Mucus Membranes Moist Cardiac: Other (irregularly irregular) Lungs: Normal Breath Sounds Neuro: Alert and responsive Abdomen: Soft Skin: No rashes noted on visualized skin Musculoskeletal: No Chest Wall Tenderness Extremities: Other (discoloration BLE (dark purple) in appearance, pt. states chronic) Results 04/25/17 00:54 04/25/17 00:54 Lab Results 04/25/17 04/25/17 00:54 00:54 WBC 2.4 L Hgb 12.3 L Hct 36.7 L Plt Count 81 L Sodium 134 L Potassium 3.6 Chloride 109 Carbon Dioxide 20 BUN 23 D Creatinine 0.86 Glucose 127 H Calcium 7.9 L Magnesium 1.6 Total Bilirubin 1.1 AST 81 H ALT 84 H Alkaline Phosphatase 58 TSH 3.832 Active Medications Acetaminophen (Tylenol) 650 mg PO Q6HR PRN PRN Reason: Mild Pain (1-3) Stop: 10/23/17 18:59 Last Admin: 04/24/17 21:39 Dose: 650 mg Aspirin (Aspirin Ec) 81 mg PO DAILY CARMEN Stop: 10/25/17 09:01 Last Admin: 04/25/17 08:11 Dose: 81 mg Atorvastatin Calcium (Lipitor) 40 mg PO HS CARMEN Stop: 10/24/17 21:01 Last Admin: 04/24/17 21:37 Dose: 40 mg Dextrose/Water (Dextrose 50% (Syg)) 50 ml IVP ONCE PRN PRN Reason: Hypoglycemia Stop: 10/23/17 15:31 Dextrose/Water (Dextrose 50% (Syg)) 25 ml IVP AD PRN PRN Reason: Hypoglycemia Stop: 10/23/17 19:04 Glucagon (Glucagen) 1 mg IM ONCE PRN PRN Reason: Hypoglycemia Stop: 10/23/17 19:04 Glucose (Gluctose) 15 gm PO ONCE PRN PRN Reason: Hypoglycemia Stop: 10/23/17 19:04 Glucose (Gluctose) 30 gm PO ONCE PRN PRN Reason: Hypoglycemia Stop: 10/23/17 19:04 Sodium Chloride (0.9 % Sodium Chloride) 1,000 mls @ 100 mls/hr IVC .Q10H [facility] Stop: 10/23/17 19:01 Last Infusion: 04/25/17 08:11 Dose: 100 mls/hr Dextrose (Dextrose 5%) 1,000 mls @ 100 mls/hr IVC .Q10H PRN PRN Reason: HYPOGLYCEMIA Stop: 10/23/17 19:04 Ceftriaxone Sodium 1,000 mg/ (Dextrose) 100 mls @ 200 mls/hr IVPB Q24H [facility] Stop: 05/04/17 08:01 Last Infusion: 04/25/17 09:19 Dose: Infused Metronidazole (Flagyl Premix 500 Mg/100 Ml) 500 mg in 100 mls @ 100 mls/hr IVPB Q8HR [facility] Stop: 10/24/17 08:01 Last Infusion: 04/25/17 09:18 Dose: Infused Diltiazem HCl 125 mg/ Dextrose 125 mls @ 2.5 mls/hr IVC .Q24H CARMEN; 2.5 MG/HR PRN Reason: Protocol Stop: 10/24/17 13:01 Last Admin: 04/25/17 09:38 Dose: 20 mg/hr, 20 mls/hr Insulin Human Lispro (Humalog) 0 units SQ TIDAC CARMEN PRN Reason: Protocol Stop: 10/24/17 07:31 Last Admin: 04/25/17 08:05 Dose: Not Given Insulin Human Lispro (Humalog) 0 units SQ HS [facility]MEN PRN Reason: Protocol Stop: 10/24/17 21:01 Last Admin: 04/24/17 21:34 Dose: Not Given Metoprolol Tartrate (Lopressor) 50 mg PO BID [facility] Stop: 10/25/17 09:01 Last Admin: 04/25/17 09:16 Dose: 25 mg Morphine Sulfate (Morphine Sulfate) 2 mg IVP Q4HR PRN PRN Reason: Severe Pain (7-10) Stop: 10/23/17 18:59 Multivitamins/Calcium (Thera M Plus) 1 tab PO QAM [facility] Stop: 10/24/17 09:01 Last Admin: 04/25/17 08:11 Dose: 1 tab Naloxone HCl (Narcan) 0.4 mg IVP Q2MIN PRN PRN Reason: Opioid Reversal Stop: 10/23/17 18:59 Ondansetron HCl (Zofran) 4 mg IVP Q8HR PRN PRN Reason: Nausea And Vomiting Stop: 10/23/17 18:59 Pantoprazole Sodium (Protonix) 40 mg IVP DAILY [facility] Stop: 10/23/17 19:01 Last Admin: 04/25/17 08:11 Dose: 40 mg Simvastatin (Zocor) 40 mg PO HS ONE PRN Reason: Protocol Stop: 04/25/17 21:01 - Imaging and Cardiology Echo: report reviewed Other Results: 12 hour tele: avg [id number] afib - EKG Interpretation EKG results cardiology: personally reviewed - VTE Documentation of Mechanical Device: Intermittent pneumatic compression device Consult Discharge Plan - Plan Referrals: Yan Villavicencio DO [Primary Care Provider] -
[2017-04-25] MEDS: 0.9 % Sodium Chloride 1,000 ML IVC SCH (14:08)
[2017-04-26] MEDS: 0.9 % Sodium Chloride 1,000 ML IVC SCH ×4 (02:00→16:25)
[2017-04-26 05:04] LABS: Alanine Aminotransferase 75 Units/L (0-55); Albumin 2.7 g/dL (3.5-5.0); Alkaline Phosphatase 61 Units/L (38-126); Aspartate Amino Transferase 60 Units/L (5-34); BUN/Creatinine Ratio 18 (6-26); Bilirubin,Total 0.9 mg/dL (0.2-1.2); Blood Urea Nitrogen 15 mg/dL (8-26); Carbon Dioxide 20 mEq/L (19-29); Chloride 110 mEq/L (98-109); Globulin 2.6 g/dL (2.4-3.5); Glucose 129 mg/dL (70-99); Magnesium 1.3 mg/dL (1.6-2.6); Osmolality,Calculated 287 (280-300); Potassium 3.8 mEq/L (3.5-4.5); Sodium 137 mEq/L (136-145); Total Protein 5.3 g/dL (6.0-8.3); eGFR For African Americans > 60 (> 60); eGFR For Non-African Americans > 60 (> 60)
[2017-04-26 05:52] LABS: Hematocrit 36.7 % (37.5-50.1); Hemoglobin 12.3 g/dL (12.9-16.9); Mean Corpuscular HGB Conc 33.5 g/dL (31.6-35.5); Mean Corpuscular Hemoglobin 28.9 pg (28.0-33.3); Mean Corpuscular Volume 86.4 fL (83.0-100.0); Mean Platelet Volume 10.1 fL (9.4-12.4); Red Blood Count 4.25 M/mcL (4.19-5.50); Red Cell Distribution Width 15.3 % (11.5-14.5)
[2017-04-26 05:54] LABS: Platelet Count 89 K/mcL (140-400)
[2017-04-26 06:24] LABS: Lymphocytes # 1.6 K/mcL (0.6-4.6); Monocytes # 0.2 K/mcL (0.0-1.3); Neutrophils # 2.6 K/mcL (1.6-8.9); Platelet Estimate Decreased (Normal); Reactive Lymphocytes Present (Not Present)
[2017-04-26] MEDS: MetroNIDAZOLE 500 MG/100 ML 500 MG/100 ML BAG IVPB SCH (08:07)
[2017-04-26] MEDS: Multivit/Ca/Min/Fe/FA 1 TAB TABLET PO SCH (08:07)
[2017-04-26] MEDS: Aspirin Enteric Coated 81 MG Tablet PO SCH ×2 (08:07→10:05)
[2017-04-26] MEDS: Pantoprazole 40 MG VIAL IVP SCH (08:07)
[2017-04-26] MEDS: Insulin LISPRO 300 UNITS/3 ML VIAL SQ SCH ×4 (08:09→20:54)
--- NOTE | 2017-04-26 09:36 | Electrocardiograph Report ---
[address] [address] Test Date: 2017-04-23 Pat Name: Delon De La Rosa Department: 104 Room: 05 Gender: M [employer] Technician: : 1950 Requested By: Mike Dobbs Order Number: [id number] Reading MD: Gus Thompson MD Measurements Intervals [place] Rate: 168 P: [place]: 0 QRS: -12 QRSD: 100 T: 220 QT: 269 QTc: 361 Interpretive Statements ATRIAL FLUTTER/TACHYCARDIA WITH RAPID VENTRICULAR RESPONSE Electronically Signed On 04-26-2017 9:35:13 EDT by Gus Thompson MD
--- NOTE | 2017-04-26 14:23 | Oncology Inp Consult Note ---
Date of Encounter: 04/26/17 Time of Encounter: 12:00 Assessment and Plan (1) Atrial fibrillation with RVR Status: Acute Assessment and plan: consider anticoag per cardiology recommendations (2) Thrombocytopenia Status: Acute Assessment and plan: History chronic since at least 2002, will obtain viral hepatitis panel which is ordered. Without anemia or leucopenia-less likely to be a bone marro wprocess. Thrombocytopenia appears to be mild not a contraindication for anti- coagulation. 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 Leucopenia has resolved s/p colonoscopy in the past. Consider rpt if concern for bleeding with anticoagulation. Out patient follow up for continued monitoring with hematology and assess if he needs further investigations plan d/w pt in detail - Data of Consult Requesting Physician: Brendon Lobo MD Primary Care Provider: Yan Villavicencio - Consult Narrative Reason for consult: thrombocytopenia History of present illness: Mr. De La Rosa is a 67 year old male with history significant for atrial fibrillation onset on Cardizem, acute kidney injury history of hypertension diabetes mellitus hyperlipidemia patient hospitalized with generalized weakness lightheadedness and palpitations was found to have aged fibrillation with rapid ventricular rate patient also had diarrhea with dark stool for few days prior to hospitalization. His hemoglobin is normal at 12.3. Hematology consulted for using anticoagulation as patient has some thrombocytopenia as well. Review of labs indicate a platelet count of 89,000 hemoglobin is stable around 4.3. Patient reports being on Coumadin several years ago for a leg problem,? Shallow thrombosis and was taken off by his regular doctor. He has had a colonoscopy back in '? 14 pt ROS significant for son lower ext swelling otherwise neg Past Med Surg Social Fam HX - Past Medical History Medical history: diabetes, hyperlipidemia, hypertension - Past Surgical History Surgical History: herniorrhaphy, orthopedic, other - Social History Smoking Status: Former smoker Smokeless Tobacco Status: No Alcohol use: occasionally Drug use: none Medications and Allergies Aspirin 325 mg PO QAM 04/23/17 [History] Atorvastatin [Lipitor] 40 mg PO QPM 04/23/17 [History] Azithromycin [Azithromycin 6-Tab Pack] 250 mg PO PER PKG DI 04/23/17 [History] GlipiZIDE [Glipizide Xl] 5 mg PO QAM 04/23/17 [History] Lisinopril [Zestril] 20 mg PO QPM 04/23/17 [History] Loratadine [Claritin] 10 mg PO QAM 04/23/17 [History] Metformin HCl [Glucophage] 1,000 mg PO QAM 04/23/17 [History] Multivit-Min/FA/Lycopen/Lutein [Centrum Silver Tablet] 1 each PO QAM 04/23/17 [ History] metFORMIN [Glucophage] 500 mg PO QPM 04/23/17 [History] Allergies bee venom protein (honey bee) Allergy (Verified 04/24/17 07:00) See Comments Penicillins Allergy (Verified 04/23/17 15:33) See Comments Review of systems: as in HPI Oncology - Exam - Constitutional Vitals: Temp Pulse Resp BP Pulse Ox 98.0 F 115 18 98/62 98 04/26/17 11:23 04/26/17 13:00 04/26/17 11:23 04/26/17 11:23 04/26/17 11:23 General appearance: average body habitus - Head Head exam: Present: atraumatic, normal inspection - Eye Eye exam: Present: sclera anicteric - ENT ENT exam: Present: mucous membranes moist - Neck Neck exam: Present: full ROM - Respiratory Respiratory exam: Present: CTAB - Cardiovascular Cardiovascular exam: Present: +S1, +S2 - GI/Abdominal GI/Abdominal exam: Present: normal bowel sounds, soft - Extremities Exam Extremities exam: Present: pedal edema - Neurological Exam Neurological exam: Present: alert, CN II-XII intact, oriented X3 - Psychiatric Psychiatric exam: Present: normal affect Oncology - Results - Labs Labs: Short CBC 04/26/17 Range/Units 04:23 WBC 4.4 D (4.3-11.1) K/mcL Hgb 12.3 L (12.9-16.9) g/dL Hct 36.7 L (37.5-50.1) % Plt Count 89 L (140-400) K/mcL Neutrophils # 2.6 (1.6-8.9) K/mcL BMP 04/26/17 04:23 Sodium 137 Potassium 3.8 Chloride 110 H Carbon Dioxide 20 BUN 15 Creatinine 0.85 Glucose 129 H Calcium 8.0 L Liver Function 04/26/17 Range/Units 04:23 Total Bilirubin 0.9 (0.2-1.2) mg/dL AST 60 H (5-34) Units/L ALT 75 H (0-55) Units/L Alkaline Phosphatase 61 (38-126) Units/L Albumin 2.7 L (3.5-5.0) g/dL Consult Discharge Plan - Plan Referrals: Yan Villavicencio DO [Primary Care Provider] - 05/05/17 9:30 am
[2017-04-26] MEDS ORDERED: Magnesium Sulfate 4 GM in D5% in Water 100 ML IVPB ONE (15:00)
[2017-04-26 15:18] LABS: Hepatitis B Surface Antigen Nonreactive (Nonreactive); Hepatitis C Virus Antibody Nonreactive (Nonreactive)
[2017-04-26] MEDS: Magnesium Sulfate 2 GM in D5% in Water 100 ML IVPB SCH ×2 (15:54→17:32)
[2017-04-26] MEDS: metroNIDAZOLE 500 MG TABLET PO SCH (15:55)
[2017-04-26 16:51] LABS: Immature Reticulocyte % 24.1 % (11.0-38.0); Retculocyte # 0.04 M/mcL (0.05-0.10); Reticulocyte % 0.9 % (1.6-2.8)
--- NOTE | 2017-04-26 18:38 | Internal Med Progress Note ---
Date of Encounter: 04/26/17 Time of Encounter: 18:36 - Assessment and plan (1) GIB (gastrointestinal bleeding) Current Visit: Yes Status: Acute Qualifiers: GI bleed type/associated pathology: melena Qualified Code(s): K92.1 - Melena (2) Leucopenia Current Visit: Yes Status: Acute Qualifiers: Qualified Code(s): D72.819 - Decreased white blood cell count, unspecified (3) UMU (acute kidney injury) Current Visit: Yes Status: Resolved (4) Hypotension Current Visit: Yes Status: Acute Qualifiers: Hypotension type: unspecified hypotension type Qualified Code(s): I95.9 - Hypotension, unspecified (5) Atrial fibrillation with RVR Current Visit: Yes Status: Acute (6) DVT prophylaxis Current Visit: Yes Status: Acute (7) Type 2 diabetes mellitus Current Visit: Yes Status: Acute Qualifiers: Diabetes mellitus complication status: without complication Diabetes mellitus digital media coordinator insulin use: without digital media coordinator use Qualified Code(s): E11.9 - Type 2 diabetes mellitus without complications - Subjective Interval history: Delon De La Rosa is a 67-year-old male past medical history significant for diabetes presented with a new onset A. fib with RVR, melena, diarrhea, UMU and hypotension. Patient is started on IV Cardizem and IV amiodarone and IV Protonix. Patient is hydrated very well. His hemoglobin dropped only 2 points from 14-12 however leukocyte count and platelets have been dropped significantly to. This could be just heme dilution effect but considering the fact that patient is hypertensive and has abnormal LFTs and concerned about possibility of sepsis therefore I will go ahead and draw 2 blood cultures and start patient on IV Rocephin and Flagyl. Allergies to penicillin noted therefore we will keep an eye, also if leukopenia worsen then we will take off Rocephin. For DVT prophylaxis patient is on SCDs. Patient seems to be diaphoretic but overall he reports that he is feeling better with hydration. Will continue current treatment however still quite concerned about possibility of infection. 04/25 patient heart rate is in the 100. Despite positive Hemoccult test hemoglobin remained stable indicating that patient is not actively bleeding and in such case and Coumadin can be tried. Will wait for cardiology to render their opinion regarding anticoagulation as well as switching to oral medication. Echocardiogram showed normal LV systolic function and mild diastolic dysfunction but no valvular abnormality or pulmonary hypertension. Ejection fraction was not estimated. Patient has been 6 L positive in last 48 hours I's and O's and his renal functions have improved however I will continue IV fluid at the rate of 100 mL an hour for another day. White cell count has slightly improved at 2.4 so far no sign of infection but since he is hydrated well and repeat chest x-ray today. Platelets remained same as well as LFTs which are slightly abnormal. Metoprolol has been increased to 50 twice a day, simvastatin has been restarted, echo reviewed and chest x-ray ordered 04/26 patient heart rate is still above 100 after he has been switched to oral Cardizem 60 mg every 6. Metoprolol 50 added. Please see echo findings above. His magnesium is very low and will be supplemented and to recheck tomorrow. Continue IV fluid as they are improving his renal functions. Cardiology is requesting hematology consult which is ordered due to low platelet count and the question if he can be safely anticoagulated. Repeat chest x-ray is negative. I started antibiotics because he had leukopenia and initially he looked like he has SIRS but I could not find any source. I put him on IV Flagyl and Rocephin and his white count improved. I am not sure of this is antibiotic or it happened spontaneously itself but I think a short course of oral antibiotics upon discharge would not be a bad idea. Again his urine and to chest x-ray did not show any sign of infection. - Constitutional Vitals: Temp Pulse Resp BP Pulse Ox 97.9 F 135 18 104/92 98 04/26/17 16:28 04/26/17 17:00 04/26/17 16:28 04/26/17 16:28 04/26/17 16:28 General appearance: Present: A&O X 3, pleasant, no acute distress, answers questions appropriately - Head Head exam: Present: atraumatic, normocephalic - Eye Eye exam: Present: PERRL, conjuntiva pink, sclera anicteric Pupils: Present: PERRL - Neck Neck exam general surgery: Present: supple, trachea midline. Absent: lymphadenopathy - Respiratory Respiratory exam: Present: CTAB. Absent: accessory muscle use, rales, rhonchi, wheezes - Cardiovascular Cardiovascular exam: Present: RRR, +S1, +S2. Absent: diastolic murmur, gallop, rubs, systolic murmur - GI/Abdominal GI/Abdominal exam: Present: normal bowel sounds, soft, no peritoneal signs. Absent: distended, tenderness - Extremities Exam Extremities exam: Present: warm, radial pulses palpable and symetrical. Absent : calf tenderness, cyanotic, pedal edema - Neurological Exam Neurological exam: Present: CN II-XII intact, oriented X3, no focal deficits. Absent: pronater drift, facial droop, speech deficit - Skin Skin exam: Present: dry, intact Internal Medicine: Result - Labs CBC & Chem 7: 04/26/17 04:23 04/26/17 04:23 Labs: Short CBC 04/26/17 Range/Units 04:23 WBC 4.4 D (4.3-11.1) K/mcL Hgb 12.3 L (12.9-16.9) g/dL Hct 36.7 L (37.5-50.1) % Plt Count 89 L (140-400) K/mcL Neutrophils # 2.6 (1.6-8.9) K/mcL BMP 04/26/17 04:23 Sodium 137 Potassium 3.8 Chloride 110 H Carbon Dioxide 20 BUN 15 Creatinine 0.85 Glucose 129 H Calcium 8.0 L Liver Function 04/26/17 Range/Units 04:23 Total Bilirubin 0.9 (0.2-1.2) mg/dL AST 60 H (5-34) Units/L ALT 75 H (0-55) Units/L Alkaline Phosphatase 61 (38-126) Units/L Albumin 2.7 L (3.5-5.0) g/dL - ABG Interpretation ABG results: PT/INR, D-dimer PT 12.1 Seconds (9.4-12.1) 04/24/17 00:55 - VTE Documentation of Mechanical Device: Intermittent pneumatic compression device Consult Discharge Plan - Plan Referrals: Yan Villavicencio DO [Primary Care Provider] - 05/05/17 9:30 am
[2017-04-27] MEDS: metroNIDAZOLE 500 MG TABLET PO SCH ×2 (01:03→08:18)
[2017-04-27 04:59] LABS: Basophils # 0.1 K/mcL (0.0-0.2); Basophils % 1.2 %; Eosinophils # 0.2 K/mcL (0.0-0.6); Eosinophils % 3.4 %; Hematocrit 38.5 % (37.5-50.1); Hemoglobin 12.7 g/dL (12.9-16.9); Immature Granulocytes % 0.8 % (0-4); Lymphocytes # 2.3 K/mcL (0.6-4.6); Lymphocytes % 45.9 %; Mean Corpuscular Hemoglobin 28.3 pg (28.0-33.3); Mean Corpuscular Volume 85.9 fL (83.0-100.0); Mean Platelet Volume 10.4 fL (9.4-12.4); Monocytes # 0.3 K/mcL (0.0-1.3); Monocytes % 6.2 %; Neutrophils # 2.1 K/mcL (1.6-8.9); Platelet Count 110 K/mcL (140-400); Red Blood Count 4.48 M/mcL (4.19-5.50); Red Cell Distribution Width 15.2 % (11.5-14.5); Segmented Neutrophils % 42.5 %
[2017-04-27 05:17] LABS: Alanine Aminotransferase 79 Units/L (0-55); Albumin 2.7 g/dL (3.5-5.0); Alkaline Phosphatase 69 Units/L (38-126); Aspartate Amino Transferase 57 Units/L (5-34); BUN/Creatinine Ratio 18 (6-26); Bilirubin,Total 0.8 mg/dL (0.2-1.2); Blood Urea Nitrogen 14 mg/dL (8-26); Calcium 8.4 mg/dL (8.6-10.8); Carbon Dioxide 23 mEq/L (19-29); Chloride 109 mEq/L (98-109); Globulin 2.6 g/dL (2.4-3.5); Glucose 149 mg/dL (70-99); Magnesium 1.6 mg/dL (1.6-2.6); Osmolality,Calculated 289 (280-300); Potassium 4.1 mEq/L (3.5-4.5); Sodium 138 mEq/L (136-145); Total Protein 5.3 g/dL (6.0-8.3); eGFR For African Americans > 60 (> 60); eGFR For Non-African Americans > 60 (> 60)
[2017-04-27 05:55] LABS: Platelet Estimate Slight Decrease (Normal); Reactive Lymphocytes Present (Not Present)
[2017-04-27] MEDS: Insulin LISPRO 300 UNITS/3 ML VIAL SQ SCH ×4 (08:08→20:38)
[2017-04-27] MEDS ORDERED: Magnesium Sulfate 2 GM in D5% in Water 100 ML IVPB ONE (08:09)
[2017-04-27] MEDS: Multivit/Ca/Min/Fe/FA 1 TAB TABLET PO SCH (08:18)
[2017-04-27] MEDS: Aspirin Enteric Coated 81 MG Tablet PO SCH (08:20)
--- NOTE | 2017-04-27 10:58 | Cardiology Progress Note ---
Date of Encounter: 04/27/17 Time of Encounter: 10:30 Assessment and Plan (1) Atrial fibrillation with RVR Current Visit: Yes Status: Acute Per cardiology: -New onset atrial fibrillation/flutter--unclear etiology and chronicity. Flu like symptoms for nearly 1 week. Pancytopenia noted. Lactic acid 2.9. -Rate remains uncontrolled. -On lopressor 50mg BID and cardizem 60mg [id number]. -TTE: no significant valvular dysfunction, unable to determine LVEF given RVR. Recommend repeating in outpatient setting. -CHA2Ds Vasc= 3 (HTN, DMII, age). Patient aware of increased risk of stroke due to not on anticoagulation at this time. Per review of hematology's note, ok to start anticoagulation. -Average HR previous 12 hours noted to be 119, atrial fibrillation. -Remains hypotensive with SBPs 80-90s. -Per discussion with will start heparin drip and digoxin IV load. -Dariel continue to monitor BP and HR. -Will continue to monitor CBC while on anticoagulation. (2) Elevated troponin Current Visit: Yes Status: Acute Per cardiology: -Mild, adynamic troponin elevation in the setting of afib/flutter with RVR, UMU , and GI bleed. -This likely represents demand ischemia, patient is chest pain free. -Continue asa, statin, and betablocker. -Consider repeating TTE in the outpatient setting once HR control improved. -No cardiac rehab warranted at this time. (3) GIB (gastrointestinal bleeding) Current Visit: Yes Status: Acute Per cardiology: -Defer further mgmt to primary service. -Recommend GI evaluation. -Stool for OB positive. -Hemoglobin stable. -Seen by hematology. Qualifiers: GI bleed type/associated pathology: melena Qualified Code(s): K92.1 - Melena (4) Hypotension Current Visit: Yes Status: Acute Per cardiology: -SBPs 80-90s. -Has been re-hydrated. NEt positive 6L. -Remains hypotensive. Qualifiers: Hypotension type: unspecified hypotension type Qualified Code(s): I95.9 - Hypotension, unspecified (5) Thrombocytopenia Current Visit: Yes Status: Acute Per cardiology: -PLatelets on admission 81. -Currently 110. -Seen by hematology, per review of their note, stated that platelets are not a contraindication to anticoagulation. Discussion w patient/family: The assessment and plan as outlined above was discussed with the patient and/or family members who expressed understanding and agreement. All questions were answered. Thank you for involving us in the care of your patient. Please call with any questions. Subjective Principal diagnosis: Afib with RVR Interval history: Patient admitted for weakness after diarrheal illness. Patient noted to be atrial fibrillation with RVR. Cardiology had previously seen and signed off. Patient remains tachycardic with average HR previous 12 hours noted to be 119. Patient hypotensive with SBPs 80-90s. Objective Vital Signs, Last 4 Hours Temp Pulse Resp BP Pulse Ox 04/27/17 08:10 145 04/27/17 07:21 97.9 F 126 16 88/70 97 General: Conversant, No Apparent Distress HEENT: Atraumatic, Normocephaly, Mucus Membranes Moist Neck: No JVD, Normal carotid pulses Cardiac: Other (Irregularly, irregular. Tachycardic. ) Lungs: Normal Breath Sounds, No Wheeze, Rales, Rhonchi Neuro: Alert and responsive, No focal deficits noted Abdomen: Soft, Non-Tender Skin: No rashes noted on visualized skin Musculoskeletal: No Chest Wall Tenderness Extremities: No Clubbing, No Cyanosis, Normal Pulses, Other (Moderate lower extremity edema. Discoloration noted to bilateral lower extremities. ) Results 04/27/17 04:13 04/27/17 04:13 Lab Results Active Medications Acetaminophen (Tylenol) 650 mg PO Q6HR PRN PRN Reason: Mild Pain (1-3) Stop: 10/23/17 18:59 Last Admin: 04/24/17 21:39 Dose: 650 mg Aspirin (Aspirin Ec) 81 mg PO DAILY CARMEN Stop: 10/25/17 09:01 Last Admin: 04/27/17 08:20 Dose: 81 mg Atorvastatin Calcium (Lipitor) 40 mg PO HS CARMEN Stop: 10/24/17 21:01 Last Admin: 04/26/17 20:31 Dose: 40 mg Dextrose/Water (Dextrose 50% (Syg)) 50 ml IVP ONCE PRN PRN Reason: Hypoglycemia Stop: 10/23/17 15:31 Dextrose/Water (Dextrose 50% (Syg)) 25 ml IVP AD PRN PRN Reason: Hypoglycemia Stop: 10/23/17 19:04 Diltiazem HCl (Cardizem) 60 mg PO Q6H [facility] Stop: 10/25/17 20:01 Last Admin: 04/27/17 08:10 Dose: Not Given Glucagon (Glucagen) 1 mg IM ONCE PRN PRN Reason: Hypoglycemia Stop: 10/23/17 19:04 Glucose (Gluctose) 15 gm PO ONCE PRN PRN Reason: Hypoglycemia Stop: 10/23/17 19:04 Glucose (Gluctose) 30 gm PO ONCE PRN PRN Reason: Hypoglycemia Stop: 10/23/17 19:04 Dextrose (Dextrose 5%) 1,000 mls @ 100 mls/hr IVC .Q10H PRN PRN Reason: HYPOGLYCEMIA Stop: 10/23/17 19:04 Insulin Human Lispro (Humalog) 0 units SQ TIDAC [facility] PRN Reason: Protocol Stop: 10/24/17 07:31 Last Admin: 04/27/17 08:08 Dose: Not Given Insulin Human Lispro (Humalog) 0 units SQ HS [facility] PRN Reason: Protocol Stop: 10/24/17 21:01 Last Admin: 04/26/17 20:54 Dose: Not Given Metoprolol Tartrate (Lopressor) 50 mg PO BID [facility] Stop: 10/25/17 09:01 Last Admin: 04/27/17 08:10 Dose: Not Given Morphine Sulfate (Morphine Sulfate) 2 mg IVP Q4HR PRN PRN Reason: Severe Pain (7-10) Stop: 10/23/17 18:59 Multivitamins/Calcium (Thera M Plus) 1 tab PO QAM [facility] Stop: 10/24/17 09:01 Last Admin: 04/27/17 08:18 Dose: 1 tab Naloxone HCl (Narcan) 0.4 mg IVP Q2MIN PRN PRN Reason: Opioid Reversal Stop: 10/23/17 18:59 Omeprazole (Prilosec) 20 mg PO DAILY@0730 [facility] Stop: 10/27/17 07:31 Last Admin: 04/27/17 08:19 Dose: 20 mg Ondansetron HCl (Zofran) 4 mg IVP Q8HR PRN PRN Reason: Nausea And Vomiting Stop: 10/23/17 18:59 Laboratory Tests 04/23/17 04/23/17 04/23/17 15:50 15:50 20:33 WBC Hgb Plt Count 81 L Potassium Creatinine Magnesium Troponin I 0.08 H* 0.08 H* TSH 04/24/17 04/24/17 04/24/17 00:55 00:55 06:52 WBC 2.1 L Hgb Plt Count Potassium Creatinine Magnesium Troponin I 0.07 H* 0.04 H* TSH 04/25/17 04/27/17 04/27/17 00:54 04:13 04:13 WBC 5.0 Hgb 12.7 L Plt Count 110 L Potassium 4.1 Creatinine 0.80 Magnesium 1.6 Troponin I TSH 3.832 - Imaging and Cardiology Chest Xray: report reviewed Echo: report reviewed - EKG Interpretation EKG results cardiology: personally reviewed (ECG with atrial fibrillation with RVR, HR 168.), other (Telemetry reviewed with average HR 119, atrial fibrillation. Longest pause 1.7 seconds. PVCs noted.) - VTE Documentation of Mechanical Device: Intermittent pneumatic compression device Consult Discharge Plan - Plan Referrals: Yan Villavicencio DO [Primary Care Provider] - 05/05/17 9:30 am
[2017-04-27] MEDS ORDERED: *HR* Heparin 5,000 UNIT/ML VIAL IVP PRN ×2 (11:31)
[2017-04-27] MEDS ORDERED: *HR* Heparin 5,000 UNIT/ML VIAL IVP ONE (11:31)
[2017-04-27] MEDS ORDERED: *HR* Digoxin 0.5 MG/2 ML AMPUL IVP ONE (11:32)
[2017-04-27 11:58] LABS: Hematocrit 40.5 % (37.5-50.1); Hemoglobin 13.6 g/dL (12.9-16.9); Mean Corpuscular HGB Conc 33.6 g/dL (31.6-35.5); Mean Corpuscular Hemoglobin 29.2 pg (28.0-33.3); Mean Corpuscular Volume 86.9 fL (83.0-100.0); Mean Platelet Volume 10.6 fL (9.4-12.4); Platelet Count 133 K/mcL (140-400); Red Blood Count 4.66 M/mcL (4.19-5.50); Red Cell Distribution Width 15.6 % (11.5-14.5)
[2017-04-27 12:03] LABS: INR 1.2; Prothrombin Time 13.3 Seconds (9.4-12.1)
[2017-04-27 12:05] LABS: Activated Partial Thrombo Time 31.7 Seconds (26.0-36.0)
[2017-04-27] MEDS: Heparin 25,000 UNIT/500 ML D5W 25,000 UNIT/500 ML MLS IVC SCH (12:20)
[2017-04-27] MEDS: *HR* Digoxin 0.5 MG/2 ML AMPUL IVP SCH (17:42)
--- NOTE | 2017-04-27 17:59 | Internal Med Progress Note ---
Date of Encounter: 04/27/17 Time of Encounter: 10:00 - Assessment and plan (1) Atrial fibrillation with RVR Current Visit: Yes Status: Acute Assessment and plan: patient presents with palpitations, shortness of breath and lightheadedness. He was found to have new onset afib with rvr. Appreciate cardiology input. HR back up again in the 140s. started on digoxin. continue oral cardizem and metoprolol. heparin drip/coumadin. compliance monitor. (2) Pancytopenia Current Visit: Yes Status: Acute Assessment and plan: anemia and leukpenia have resolved. thrombocytopenia is improving. could be secondary to viral infection (pt had cold symptoms a week ago). (3) UMU (acute kidney injury) Current Visit: Yes Status: Resolved Assessment and plan: resolved. Pre-renal from dehydration. received IV fluid hydration. (4) Type 2 diabetes mellitus Current Visit: Yes Status: Acute Assessment and plan: fasting glucose is adequate. Accu-Chek 4 times a day with sliding scale coverage Qualifiers: Diabetes mellitus complication status: without complication Diabetes mellitus fdc insulin use: without ferry terminal agent use Qualified Code(s): E11.9 - Type 2 diabetes mellitus without complications (5) Lung nodule Current Visit: Yes Status: Acute Assessment and plan: cxr shows incidental lung nodule 1.2 cm. f/u as outpatient. - Subjective Interval history: no chest pain. positive palpitations. - Constitutional Vitals: Temp Pulse Resp BP Pulse Ox 98.1 F 153 18 112/78 94 04/27/17 15:18 04/27/17 15:18 04/27/17 15:18 04/27/17 15:18 04/27/17 15:18 General appearance: Present: cooperative, A&O X 3, pleasant, no acute distress, answers questions appropriately - Neck Neck exam general surgery: Present: supple, trachea midline. Absent: lymphadenopathy - Respiratory Respiratory exam: Present: rales - Cardiovascular Cardiovascular exam: Present: irregular rhythm, tachycardia - GI/Abdominal GI/Abdominal exam: Present: normal bowel sounds, soft. Absent: distended, tenderness - Extremities Exam Extremities exam: Present: pedal edema - Back Exam Back exam: Absent: CVA tenderness (L), CVA tenderness (R) - Neurological Exam Neurological exam: Present: alert, oriented X3, no focal deficits, strengths equal and symetr throughout. Absent: facial droop, speech deficit - Skin Skin exam: Absent: rash Internal Medicine: Result - Labs CBC & Chem 7: 04/27/17 11:43 04/27/17 04:13 Labs: Short CBC 04/27/17 04/27/17 Range/Units 04:13 11:43 WBC 5.0 6.5 (4.3-11.1) K/mcL Hgb 12.7 L 13.6 (12.9-16.9) g/dL Hct 38.5 40.5 (37.5-50.1) % Plt Count 110 L 133 L (140-400) K/mcL Neutrophils # 2.1 (1.6-8.9) K/mcL BMP 04/27/17 04:13 Sodium 138 Potassium 4.1 Chloride 109 Carbon Dioxide 23 BUN 14 Creatinine 0.80 Glucose 149 H Calcium 8.4 L Liver Function 04/27/17 Range/Units 04:13 Total Bilirubin 0.8 (0.2-1.2) mg/dL AST 57 H (5-34) Units/L ALT 79 H (0-55) Units/L Alkaline Phosphatase 69 (38-126) Units/L Albumin 2.7 L (3.5-5.0) g/dL - ABG Interpretation ABG results: PT/INR, D-dimer PT 13.3 Seconds (9.4-12.1) H 04/27/17 11:43 - Impressions Impressions Chest X-Ray 04/27/17 09:18 IMPRESSION: 1. No acute cardiopulmonary findings. 2. There is a 1.2 cm nodule in the right mid lung, given its density could represent a calcified granuloma. Comparison to prior exams would be helpful beyond 04/23/2017. Otherwise confirmation with a CT can be performed. D/ / 04/27/2017 14:24:56 Faby Conley MD / Nolvia Davila Interpreting Provider: Faby Conley MD - VTE Documentation of Mechanical Device: Intermittent pneumatic compression device Consult Discharge Plan - Plan Referrals: Yan Villavicencio DO [Primary Care Provider] - 05/05/17 9:30 am
[2017-04-27 18:46] LABS: Activated Partial Thrombo Time 150.3 Seconds (26.0-36.0)
[2017-04-27 18:55] LABS: Heparin anti-factor XA UFH 0.65 IU/mL (0.30-0.70)
[2017-04-28] MEDS: *HR* Digoxin 0.5 MG/2 ML AMPUL IVP SCH (01:48)
[2017-04-28 04:44] LABS: Basophils % 0.5 %; Eosinophils # 0.2 K/mcL (0.0-0.6); Eosinophils % 2.8 %; Hematocrit 38.3 % (37.5-50.1); Hemoglobin 12.7 g/dL (12.9-16.9); Immature Granulocytes % 0.5 % (0-4); Lymphocytes # 3.1 K/mcL (0.6-4.6); Lymphocytes % 41.8 %; Mean Corpuscular HGB Conc 33.2 g/dL (31.6-35.5); Mean Corpuscular Hemoglobin 28.4 pg (28.0-33.3); Mean Corpuscular Volume 85.7 fL (83.0-100.0); Mean Platelet Volume 10.3 fL (9.4-12.4); Monocytes # 0.4 K/mcL (0.0-1.3); Monocytes % 5.6 %; Neutrophils # 3.7 K/mcL (1.6-8.9); Platelet Count 160 K/mcL (140-400); Red Blood Count 4.47 M/mcL (4.19-5.50); Red Cell Distribution Width 15.4 % (11.5-14.5); Segmented Neutrophils % 48.8 %
[2017-04-28 04:59] LABS: Albumin 2.8 g/dL (3.5-5.0); Bilirubin,Direct 0.3 mg/dL (0.0-0.5); Bilirubin,Indirect 0.4 mg/dL (0.0-1.2); Bilirubin,Total 0.7 mg/dL (0.2-1.2); Globulin 2.7 g/dL (2.4-3.5); Magnesium 1.4 mg/dL (1.6-2.6); Total Protein 5.5 g/dL (6.0-8.3)
[2017-04-28 05:05] LABS: Alanine Aminotransferase 86 Units/L (0-55); Albumin 2.7 g/dL (3.5-5.0); Alkaline Phosphatase 77 Units/L (38-126); Aspartate Amino Transferase 61 Units/L (5-34); BUN/Creatinine Ratio 16 (6-26); Bilirubin,Total 0.7 mg/dL (0.2-1.2); Blood Urea Nitrogen 13 mg/dL (8-26); Calcium 8.4 mg/dL (8.6-10.8); Carbon Dioxide 24 mEq/L (19-29); Chloride 108 mEq/L (98-109); Globulin 2.8 g/dL (2.4-3.5); Glucose 162 mg/dL (70-99); Osmolality,Calculated 290 (280-300); Potassium 4.2 mEq/L (3.5-4.5); Sodium 138 mEq/L (136-145); Total Protein 5.5 g/dL (6.0-8.3); eGFR For African Americans > 60 (> 60); eGFR For Non-African Americans > 60 (> 60)
[2017-04-28 05:37] LABS: Platelet Estimate Normal (Normal); Reactive Lymphocytes Present (Not Present)
[2017-04-28] MEDS ORDERED: Magnesium Sulfate 2 GM in D5% in Water 100 ML IVPB ONE (07:48)
--- NOTE | 2017-04-28 08:10 | Oncology Inp Progress Note ---
Date of Encounter: 04/28/17 Time of Encounter: 08:00 (1) Atrial fibrillation with RVR Current Visit: Yes Status: Acute Assessment and plan: consider anticoag per cardiology recommendations (2) Thrombocytopenia Current Visit: Yes Status: Acute Assessment and plan: History chronic since at least 2002, mild fluctuating--plt are nl now viral hepatitis panel negative. Labs d/w pt. 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 s/p colonoscopy in the past. Consider rpt if concern for bleeding with anticoagulation. Out patient follow up for continued monitoring with hematology and assess if he needs further investigations plan d/w pt in detail Oncology: Subj Interval history: rt upper ext bruising due to IVs not working. No other compliants. - Constitutional Vitals: Vital Signs Temp Pulse Resp BP Pulse Ox 04/28/17 07:10 98.3 F 137 18 113/81 04/28/17 04:40 117 04/28/17 00:25 112 04/28/17 00:20 98.8 F 117 16 118/88 04/27/17 19:58 134 18 97/78 04/27/17 19:24 97.9 F 106 16 101/84 04/27/17 15:18 98.1 F 153 18 112/78 94 04/27/17 15:00 125 16 112/78 04/27/17 13:59 134 16 112/95 04/27/17 11:36 97.8 F 101 18 109/81 96 04/27/17 08:10 145 Intake and Output 04/27/17 04/28/17 04/28/17 23:59 07:59 15:59 Intake Total 374 / 374 319 / 319 Output Total 700 / 700 750 / 750 Balance -326 / -326 -431 / -431 Intake: IV Fluids 134 / 134 259 / 259 Heparin 25,000 UNIT/500 134 / 134 259 / 259 ML D5W 25,000 unit In 500 ml @ 14 UNIT/KG/HR 29. 428 mls/hr IVC .Q17H CARMEN Rx#:[id number] Oral 240 / 240 60 / 60 Output: Urine 700 / 700 750 / 750 Other: Meal Dinner Percent of Meal Consumed 100% # Voids 2 Blood Glucose* 171 137 General appearance: no acute distress - Head Head exam: Present: atraumatic, normal inspection - Eye Eye exam: Present: sclera anicteric - Neck Neck exam: Present: full ROM, normal inspection - Cardiovascular Cardiovascular exam: Present: irregular rhythm, +S1, +S2, tachycardia Additional comments: HR 120-140 in the monitor - GI/Abdominal GI/Abdominal exam: Present: distended, soft - Extremities Exam Additional comments: rt upper ext IV removed-some bruising, bleeding stopped - Neurological Exam Neurological exam: Present: alert, CN II-XII intact, oriented X3 - Psychiatric Psychiatric exam: Present: normal affect Oncology: Obj Data - Labs CBC & Chem 7: 04/28/17 03:55 04/28/17 03:55 Labs: Laboratory Results - last 24 hr 04/27/17 04/27/17 04/27/17 07:24 11:42 11:43 WBC 6.5 RBC 4.66 Hgb 13.6 Hct 40.5 MCV 86.9 MCH 29.2 MCHC 33.6 RDW 15.6 H Plt Count 133 L MPV 10.6 Immature Gran % Seg Neutrophils % Lymphocytes % Monocytes % Eosinophils % Basophils % Neutrophils # Lymphocytes # Monocytes # Eosinophils # Basophils # Reactive Lymphocytes Platelet Estimate PT INR APTT Heparin Anti-Xa, Unfract Sodium Potassium Chloride Carbon Dioxide BUN Creatinine Est GFR ( Amer) Est GFR (Non-Af Amer) BUN/Creatinine Ratio Glucose POC Glucose 133 H 166 H Calculated Osmolality Calcium Magnesium Total Bilirubin Direct Bilirubin Indirect Bilirubin AST ALT Alkaline Phosphatase Serum Total Protein Albumin Globulin Albumin/Globulin Ratio 04/27/17 04/27/17 04/27/17 11:43 15:42 18:10 WBC RBC Hgb Hct MCV MCH MCHC RDW Plt Count MPV Immature Gran % Seg Neutrophils % Lymphocytes % Monocytes % Eosinophils % Basophils % Neutrophils # Lymphocytes # Monocytes # Eosinophils # Basophils # Reactive Lymphocytes Platelet Estimate PT 13.3 H INR 1.2 APTT 31.7 150.3 H* D Heparin Anti-Xa, Unfract 0.65 Sodium Potassium Chloride Carbon Dioxide BUN Creatinine Est GFR ( Amer) Est GFR (Non-Af Amer) BUN/Creatinine Ratio Glucose POC Glucose 193 H Calculated Osmolality Calcium Magnesium Total Bilirubin Direct Bilirubin Indirect Bilirubin AST ALT Alkaline Phosphatase Serum Total Protein Albumin Globulin Albumin/Globulin Ratio 04/27/17 04/27/17 04/28/17 20:08 20:26 03:55 WBC 7.5 RBC 4.47 Hgb 12.7 L Hct 38.3 MCV 85.7 MCH 28.4 MCHC 33.2 RDW 15.4 H Plt Count 160 MPV 10.3 Immature Gran % 0.5 Seg Neutrophils % 48.8 Lymphocytes % 41.8 Monocytes % 5.6 Eosinophils % 2.8 Basophils % 0.5 Neutrophils # 3.7 Lymphocytes # 3.1 Monocytes # 0.4 Eosinophils # 0.2 Basophils # 0.0 Reactive Lymphocytes Present A Platelet Estimate Normal PT INR APTT 51.1 H D Heparin Anti-Xa, Unfract Sodium Potassium Chloride Carbon Dioxide BUN Creatinine Est GFR ( Amer) Est GFR (Non-Af Amer) BUN/Creatinine Ratio Glucose POC Glucose 171 H Calculated Osmolality Calcium Magnesium Total Bilirubin Direct Bilirubin Indirect Bilirubin AST ALT Alkaline Phosphatase Serum Total Protein Albumin Globulin Albumin/Globulin Ratio 04/28/17 04/28/17 04/28/17 03:55 03:55 03:55 WBC RBC Hgb Hct MCV MCH MCHC RDW Plt Count MPV Immature Gran % Seg Neutrophils % Lymphocytes % Monocytes % Eosinophils % Basophils % Neutrophils # Lymphocytes # Monocytes # Eosinophils # Basophils # Reactive Lymphocytes Platelet Estimate PT INR APTT 104.4 H D Heparin Anti-Xa, Unfract Sodium 138 Potassium 4.2 Chloride 108 Carbon Dioxide 24 BUN 13 Creatinine 0.83 Est GFR ( Amer) > 60 Est GFR (Non-Af Amer) > 60 BUN/Creatinine Ratio 16 Glucose 162 H POC Glucose Calculated Osmolality 290 Calcium 8.4 L Magnesium 1.4 L Total Bilirubin 0.7 0.7 Direct Bilirubin 0.3 Indirect Bilirubin 0.4 AST 61 H 61 H ALT 86 H 90 H Alkaline Phosphatase 77 78 Serum Total Protein 5.5 L 5.5 L Albumin 2.7 L 2.8 L Globulin 2.8 2.7 Albumin/Globulin Ratio 1.0 L 1.0 L - Impressions Impressions Chest X-Ray 04/27/17 09:18 IMPRESSION: 1. No acute cardiopulmonary findings. 2. There is a 1.2 cm nodule in the right mid lung, given its density could represent a calcified granuloma. Comparison to prior exams would be helpful beyond 04/23/2017. Otherwise confirmation with a CT can be performed. D/ / 04/27/2017 14:24:56 Faby Conley MD / Nolvia Davila Interpreting Provider: Faby Conley MD - ABG Interpretation ABG results: PT/INR, D-dimer PT 13.3 Seconds (9.4-12.1) H 04/27/17 11:43 Consult Discharge Plan - Plan Referrals: Yan Villavicencio DO [Primary Care Provider] - 05/05/17 9:30 am
[2017-04-28] MEDS: Heparin 25,000 UNIT/500 ML D5W 25,000 UNIT/500 ML MLS IVC SCH (08:41)
[2017-04-28] MEDS: Magnesium Oxide 400 MG TABLET PO SCH ×2 (08:49→21:26)
[2017-04-28] MEDS: Insulin LISPRO 300 UNITS/3 ML VIAL SQ SCH ×4 (08:49→23:59)
[2017-04-28] MEDS: *HR* Digoxin 0.125 MG TABLET PO SCH (08:50)
[2017-04-28] MEDS: Aspirin Enteric Coated 81 MG Tablet PO SCH (08:50)
[2017-04-28] MEDS: Multivit/Ca/Min/Fe/FA 1 TAB TABLET PO SCH (08:50)
--- NOTE | 2017-04-28 10:48 | Cardiology Progress Note ---
Date of Encounter: 04/28/17 Time of Encounter: 08:30 Assessment and Plan (1) Atrial fibrillation with RVR Current Visit: Yes Status: Acute Per cardiology: -New onset atrial fibrillation/flutter--unclear etiology and chronicity. Flu like symptoms for nearly 1 week. Pancytopenia noted. Lactic acid 2.9. -Rate remains uncontrolled. -On lopressor 50mg BID and cardizem 60mg [id number]. Digoxin IV loading dose given yesterday. Of note, oral beta cary and cardizem were held yesterday due to hypotension. -TTE: no significant valvular dysfunction, unable to determine LVEF given RVR. Recommend repeating in outpatient setting. -CHA2Ds Vasc= 3 (HTN, DMII, age). Patient was aware of increased risk of stroke due to not on anticoagulation. Per review of hematology's note, ok to start anticoagulation. -Patient currently on heparin drip.Hemoglobin stable. -Average HR previous 12 hours noted to be 120, atrial fibrillation. -BPs currently 110s systolic. -Mg 1.4, replaced per primary service. -Will start po digoxin today. -Recommend given patient his oral beta cary and calcium channel cary. -Will continue to monitor BP and HR. (2) Elevated troponin Current Visit: Yes Status: Acute Per cardiology: -Mild, adynamic troponin elevation in the setting of afib/flutter with RVR, UMU , and GI bleed. -This likely represents demand ischemia, patient is chest pain free. -Continue asa, statin, and betablocker. -Consider repeating TTE in the outpatient setting once HR control improved. -No cardiac rehab warranted at this time. (3) GIB (gastrointestinal bleeding) Current Visit: Yes Status: Acute Per cardiology: -Defer further mgmt to primary service. -Recommend GI evaluation. -Stool for OB positive. -Hemoglobin stable. -Seen by hematology. Qualifiers: GI bleed type/associated pathology: melena Qualified Code(s): K92.1 - Melena (4) Hypotension Current Visit: Yes Status: Acute Per cardiology: -SBPs 110s systolic. -Has been re-hydrated. NEt positive 6L. Qualifiers: Hypotension type: unspecified hypotension type Qualified Code(s): I95.9 - Hypotension, unspecified (5) Thrombocytopenia Current Visit: Yes Status: Acute Per cardiology: -PLatelets on admission 81. -Currently 160. -Seen by hematology, per review of their note, stated that platelets are not a contraindication to anticoagulation. Discussion w patient/family: The assessment and plan as outlined above was discussed with the patient who expressed understanding and agreement. All questions were answered. Thank you for involving us in the care of your patient. Please call with any questions. Discussed and reviewed with . Subjective Principal diagnosis: Afib with RVR Interval history: Patient admitted for weakness after diarrheal illness. Patient noted to be atrial fibrillation with RVR. Cardiology had previously seen and signed off. Patient remains tachycardic with average HR previous 12 hours noted to be 120. Patient's beta cary and cardizem were held yesterday due to hypotension. Patient was given IV digoxin load yesterday and started on maintenance today. Objective Vital Signs, Last 4 Hours Temp Pulse Resp BP 04/28/17 08:15 130 04/28/17 07:10 98.3 F 137 18 113/81 General: Conversant, No Apparent Distress HEENT: Atraumatic, Normocephaly, Mucus Membranes Moist Neck: No JVD Cardiac: Other (Irregularly, irregular) Lungs: Normal Breath Sounds, No Wheeze, Rales, Rhonchi Neuro: Alert and responsive, No focal deficits noted Abdomen: Soft, Non-Tender Skin: No rashes noted on visualized skin Musculoskeletal: No Chest Wall Tenderness Extremities: No Clubbing, No Cyanosis, Normal Pulses, Other (Moderate bilateral lower extremity edema and discoloration noted to bilateral lower extremities. ) Results 04/28/17 03:55 04/28/17 03:55 Lab Results Impressions Chest X-Ray 04/27/17 09:18 IMPRESSION: 1. No acute cardiopulmonary findings. 2. There is a 1.2 cm nodule in the right mid lung, given its density could represent a calcified granuloma. Comparison to prior exams would be helpful beyond 04/23/2017. Otherwise confirmation with a CT can be performed. D/ / 04/27/2017 14:24:56 Faby Conley MD / Nolvia Davila Interpreting Provider: Faby Conley MD Active Medications Acetaminophen (Tylenol) 650 mg PO Q6HR PRN PRN Reason: Mild Pain (1-3) Stop: 10/23/17 18:59 Last Admin: 04/24/17 21:39 Dose: 650 mg Aspirin (Aspirin Ec) 81 mg PO DAILY [facility]MEN Stop: 10/25/17 09:01 Last Admin: 04/28/17 08:50 Dose: 81 mg Atorvastatin Calcium (Lipitor) 40 mg PO HS [facility] Stop: 10/24/17 21:01 Last Admin: 04/27/17 20:36 Dose: 40 mg Dextrose/Water (Dextrose 50% (Syg)) 50 ml IVP ONCE PRN PRN Reason: Hypoglycemia Stop: 10/23/17 15:31 Dextrose/Water (Dextrose 50% (Syg)) 25 ml IVP AD PRN PRN Reason: Hypoglycemia Stop: 10/23/17 19:04 Digoxin (Lanoxin) 0.125 mg PO DAILY CARMEN Stop: 10/28/17 09:01 Last Admin: 04/28/17 08:50 Dose: 0.125 mg Diltiazem HCl (Cardizem) 60 mg PO Q6H [facility] Stop: 10/25/17 20:01 Last Admin: 04/28/17 08:50 Dose: 60 mg Glucagon (Glucagen) 1 mg IM ONCE PRN PRN Reason: Hypoglycemia Stop: 10/23/17 19:04 Glucose (Gluctose) 15 gm PO ONCE PRN PRN Reason: Hypoglycemia Stop: 10/23/17 19:04 Glucose (Gluctose) 30 gm PO ONCE PRN PRN Reason: Hypoglycemia Stop: 10/23/17 19:04 Heparin Sodium (Porcine) (Heparin) 7,400 unit 70 unit/kg (7400 unit) IVP Q6HR PRN PRN Reason: SEE COMMENTS Stop: 10/27/17 11:32 Heparin Sodium (Porcine) (Heparin) 3,700 unit 35 unit/kg (3700 unit) IVP Q6H PRN PRN Reason: SEE COMMENTS Stop: 10/27/17 11:32 Last Admin: 04/27/17 21:23 Dose: 3,700 unit Dextrose (Dextrose 5%) 1,000 mls @ 100 mls/hr IVC .Q10H PRN PRN Reason: HYPOGLYCEMIA Stop: 10/23/17 19:04 Heparin Sodium/Dextrose (Heparin 25,000 Unit/500 Ml D5w) 25,000 unit in 500 mls @ 29.428 mls/hr IVC .Q17H CARMEN; 14 UNIT/KG/HR PRN Reason: Protocol Stop: 10/27/17 11:46 Last Admin: 04/28/17 08:41 Dose: 13.98 unit/kg/hr, 29.386 mls/hr Insulin Human Lispro (Humalog) 0 units SQ TIDAC [facility] PRN Reason: Protocol Stop: 10/24/17 07:31 Last Admin: 04/28/17 08:49 Dose: Not Given Insulin Human Lispro (Humalog) 0 units SQ HS [facility] PRN Reason: Protocol Stop: 10/24/17 21:01 Last Admin: 04/27/17 20:38 Dose: Not Given Magnesium Oxide (Mag-Ox) 400 mg PO BID [facility] PRN Reason: Protocol Stop: 10/28/17 09:01 Last Admin: 04/28/17 08:49 Dose: 400 mg Metoprolol Tartrate (Lopressor) 50 mg PO BID [facility] Stop: 10/25/17 09:01 Last Admin: 04/28/17 08:50 Dose: 50 mg Morphine Sulfate (Morphine Sulfate) 2 mg IVP Q4HR PRN PRN Reason: Severe Pain (7-10) Stop: 10/23/17 18:59 Multivitamins/Calcium (Thera M Plus) 1 tab PO QAM [facility] Stop: 10/24/17 09:01 Last Admin: 04/28/17 08:50 Dose: 1 tab Naloxone HCl (Narcan) 0.4 mg IVP Q2MIN PRN PRN Reason: Opioid Reversal Stop: 10/23/17 18:59 Omeprazole (Prilosec) 20 mg PO DAILY@0730 [facility] Stop: 10/27/17 07:31 Last Admin: 04/28/17 08:49 Dose: 20 mg Ondansetron HCl (Zofran) 4 mg IVP Q8HR PRN PRN Reason: Nausea And Vomiting Stop: 10/23/17 18:59 Laboratory Tests 04/28/17 04/28/17 04/28/17 03:55 03:55 03:55 Hgb 12.7 L Potassium 4.2 Creatinine 0.83 Magnesium 1.4 L - Imaging and Cardiology Chest Xray: report reviewed Echo: report reviewed - EKG Interpretation EKG results cardiology: other (Telemetry reviewed with average HR previous 12 hours noted to be 120, atrial fibrillation. Longest pause 1.4 seconds. PVCs noted.) - VTE Documentation of Mechanical Device: Intermittent pneumatic compression device Consult Discharge Plan - Plan Referrals: Yan Villavicencio DO [Primary Care Provider] - 05/05/17 9:30 am
[2017-04-28] MEDS: dilTIAZem HCl 60 MG TABLET PO SCH ×2 (16:37→21:27)
--- NOTE | 2017-04-28 20:14 | Internal Med Progress Note ---
Date of Encounter: 04/28/17 Time of Encounter: 09:00 - Assessment and plan (1) Atrial fibrillation with RVR Current Visit: Yes Status: Acute Assessment and plan: patient presents with palpitations, shortness of breath and lightheadedness. He was found to have new onset afib with rvr. Appreciate cardiology input. HR still in the 140s this morning. continue digoxin, oral cardizem and metoprolol. heparin drip/coumadin. library monitor. I discussed case with cardiology team and if no improvement on his heart rate this afternoon, amiodarone will be started. (2) Pancytopenia Current Visit: Yes Status: Acute Assessment and plan: anemia and leukpenia have resolved. thrombocytopenia is improving. could be secondary to viral infection (pt had cold symptoms a week ago). (3) UMU (acute kidney injury) Current Visit: Yes Status: Resolved Assessment and plan: resolved. Pre-renal from dehydration. received IV fluid hydration. (4) Type 2 diabetes mellitus Current Visit: Yes Status: Acute Assessment and plan: fasting glucose is adequate. Accu-Chek 4 times a day with sliding scale coverage Qualifiers: Diabetes mellitus complication status: without complication Diabetes mellitus jail insulin use: without intermediate project manager use Qualified Code(s): E11.9 - Type 2 diabetes mellitus without complications (5) Lung nodule Current Visit: Yes Status: Acute Assessment and plan: cxr shows incidental lung nodule 1.2 cm. f/u as outpatient. - Subjective Interval history: no chest pain. No shortness of breath. - Constitutional Vitals: Temp Pulse Resp BP Pulse Ox 97.9 F 67 16 115/74 95 04/28/17 15:24 04/28/17 18:27 04/28/17 18:27 04/28/17 18:27 04/28/17 15:03 General appearance: Present: cooperative, A&O X 3, pleasant, no acute distress, answers questions appropriately - Neck Neck exam general surgery: Present: supple, trachea midline. Absent: lymphadenopathy - Respiratory Respiratory exam: Present: CTAB - Cardiovascular Cardiovascular exam: Present: irregular rhythm, tachycardia - GI/Abdominal GI/Abdominal exam: Present: normal bowel sounds, soft. Absent: distended, tenderness - Extremities Exam Extremities exam: Present: pedal edema - Back Exam Back exam: Absent: CVA tenderness (L), CVA tenderness (R) - Neurological Exam Neurological exam: Present: alert, oriented X3. Absent: facial droop, speech deficit - Skin Skin exam: Absent: rash Internal Medicine: Result - Labs CBC & Chem 7: 04/28/17 03:55 04/28/17 03:55 Labs: Short CBC 04/28/17 Range/Units 03:55 WBC 7.5 (4.3-11.1) K/mcL Hgb 12.7 L (12.9-16.9) g/dL Hct 38.3 (37.5-50.1) % Plt Count 160 (140-400) K/mcL Neutrophils # 3.7 (1.6-8.9) K/mcL BMP 04/28/17 03:55 Sodium 138 Potassium 4.2 Chloride 108 Carbon Dioxide 24 BUN 13 Creatinine 0.83 Glucose 162 H Calcium 8.4 L Liver Function 04/28/17 04/28/17 Range/Units 03:55 03:55 Total Bilirubin 0.7 0.7 (0.2-1.2) mg/dL Direct Bilirubin 0.3 (0.0-0.5) mg/dL AST 61 H 61 H (5-34) Units/L ALT 86 H 90 H (0-55) Units/L Alkaline Phosphatase 77 78 (38-126) Units/L Albumin 2.7 L 2.8 L (3.5-5.0) g/dL - ABG Interpretation ABG results: PT/INR, D-dimer PT 13.3 Seconds (9.4-12.1) H 04/27/17 11:43 - VTE Documentation of Mechanical Device: Intermittent pneumatic compression device Consult Discharge Plan - Plan Referrals: Yan Villavicencio DO [Primary Care Provider] - 05/05/17 9:30 am
[2017-04-29 01:30] LABS: Basophils % 0.6 %; Eosinophils # 0.2 K/mcL (0.0-0.6); Eosinophils % 2.5 %; Hematocrit 38.7 % (37.5-50.1); Hemoglobin 12.6 g/dL (12.9-16.9); Immature Granulocytes % 1.2 % (0-4); Lymphocytes # 3.4 K/mcL (0.6-4.6); Lymphocytes % 50.6 %; Mean Corpuscular HGB Conc 32.6 g/dL (31.6-35.5); Mean Corpuscular Hemoglobin 28.3 pg (28.0-33.3); Mean Platelet Volume 9.8 fL (9.4-12.4); Monocytes # 0.4 K/mcL (0.0-1.3); Monocytes % 5.4 %; Neutrophils # 2.7 K/mcL (1.6-8.9); Platelet Count 183 K/mcL (140-400); Red Blood Count 4.45 M/mcL (4.19-5.50); Red Cell Distribution Width 15.7 % (11.5-14.5); Segmented Neutrophils % 39.7 %
[2017-04-29 01:35] LABS: INR 1.3; Prothrombin Time 14.1 Seconds (9.4-12.1)
[2017-04-29 01:38] LABS: Activated Partial Thrombo Time 70.1 Seconds (26.0-36.0)
[2017-04-29 01:44] LABS: Alanine Aminotransferase 82 Units/L (0-55); Albumin 2.7 g/dL (3.5-5.0); Albumin/Globulin Ratio 0.9 (1.1-2.2); Alkaline Phosphatase 79 Units/L (38-126); Aspartate Amino Transferase 48 Units/L (5-34); BUN/Creatinine Ratio 13 (6-26); Bilirubin,Total 0.7 mg/dL (0.2-1.2); Blood Urea Nitrogen 11 mg/dL (8-26); Calcium 8.5 mg/dL (8.6-10.8); Carbon Dioxide 24 mEq/L (19-29); Chloride 107 mEq/L (98-109); Glucose 188 mg/dL (70-99); Magnesium 1.5 mg/dL (1.6-2.6); Osmolality,Calculated 290 (280-300); Potassium 4.1 mEq/L (3.5-4.5); Sodium 138 mEq/L (136-145); Total Protein 5.7 g/dL (6.0-8.3); eGFR For African Americans > 60 (> 60); eGFR For Non-African Americans > 60 (> 60)
[2017-04-29] MEDS: Heparin 25,000 UNIT/500 ML D5W 25,000 UNIT/500 ML MLS IVC SCH ×3 (01:55→21:59)
[2017-04-29 01:57] LABS: Platelet Estimate Normal (Normal); Polychromasia 1+ (Not Present); Reactive Lymphocytes Present (Not Present)
[2017-04-29] MEDS: dilTIAZem HCl 60 MG TABLET PO SCH ×2 (03:55→08:45)
[2017-04-29] MEDS: Multivit/Ca/Min/Fe/FA 1 TAB TABLET PO SCH (08:44)
[2017-04-29] MEDS: *HR* Digoxin 0.125 MG TABLET PO SCH (08:44)
[2017-04-29] MEDS: Magnesium Oxide 400 MG TABLET PO SCH ×2 (08:45→21:03)
[2017-04-29] MEDS: Aspirin Enteric Coated 81 MG Tablet PO SCH (08:45)
[2017-04-29] MEDS: Insulin LISPRO 300 UNITS/3 ML VIAL SQ SCH ×4 (08:45→20:56)
[2017-04-29] MEDS ORDERED: Magnesium Sulfate 2 GM in D5% in Water 100 ML IVPB ONE (09:24)
--- NOTE | 2017-04-29 09:39 | Cardiology Progress Note ---
Date of Encounter: 04/29/17 Time of Encounter: 09:00 Assessment and Plan (1) Atrial fibrillation with RVR Current Visit: Yes Status: Acute Per cardiology: -New onset atrial fibrillation/flutter--unclear etiology and chronicity. Flu like symptoms for nearly 1 week. Pancytopenia noted. Lactic acid 2.9. -Rate remains uncontrolled. -On lopressor 50mg BID and cardizem 60mg [id number] and digoxin 0.125mg. -TTE: no significant valvular dysfunction, unable to determine LVEF given RVR. Recommend repeating in outpatient setting. -CHA2Ds Vasc= 3 (HTN, DMII, age). Patient was aware of increased risk of stroke due to not on anticoagulation. Per review of hematology's note, ok to start anticoagulation. -Patient currently on heparin drip.Hemoglobin stable. Denies active bleeding. -Average HR previous 12 hours noted to be 95, atrial fibrillation. At time of assessment, HR 100-130s. -BPs currently 110s systolic. -Mg 1.5, replaced per primary service. -Will increase lopressor to 75mg BID. -Will start coumadin, dosing per pharmacy. Will stop heparin once coumadin has been started. -Will switch cardizem to long acting. -WIll continue to monitor. (2) Elevated troponin Current Visit: Yes Status: Acute Per cardiology: -Mild, adynamic troponin elevation in the setting of afib/flutter with RVR, UMU , and GI bleed. -This likely represents demand ischemia, patient is chest pain free. -Continue asa, statin, and betablocker. -Consider repeating TTE in the outpatient setting once HR control improved. -No cardiac rehab warranted at this time. (3) GIB (gastrointestinal bleeding) Current Visit: Yes Status: Acute Per cardiology: -Defer further mgmt to primary service. -Recommend GI evaluation. -Stool for OB positive. -Hemoglobin stable. -Seen by hematology. Qualifiers: GI bleed type/associated pathology: melena Qualified Code(s): K92.1 - Melena (4) Hypotension Current Visit: Yes Status: Resolved Per cardiology: -SBPs 110-130s systolic currently. -Has been re-hydrated. NEt positive 6L. Qualifiers: Hypotension type: unspecified hypotension type Qualified Code(s): I95.9 - Hypotension, unspecified (5) Thrombocytopenia Current Visit: Yes Status: Acute Per cardiology: -PLatelets on admission 81. -Currently improved. -Seen by hematology, per review of their note, stated that platelets are not a contraindication to anticoagulation. Discussion w patient/family: The assessment and plan as outlined above was discussed with the patient who expressed understanding and agreement. All questions were answered. Thank you for involving us in the care of your patient. Please call with any questions. Discussed and reviewed with . Subjective Principal diagnosis: Afib with RVR Interval history: Patient admitted for weakness after diarrheal illness. Patient noted to be atrial fibrillation with RVR. Cardiology had previously seen and signed off. Patient on metoprolol, cardizem, and digoxin. Average HR overnight noted to be 95. Objective Vital Signs, Last 4 Hours Temp Pulse Resp BP Pulse Ox 04/29/17 07:20 114 04/29/17 06:54 97.9 F 98 17 114/76 97 General: Conversant, No Apparent Distress HEENT: Atraumatic, Normocephaly, Mucus Membranes Moist Neck: No JVD, Normal carotid pulses Cardiac: Other (Irregularly, irregular) Lungs: Normal Breath Sounds, No Wheeze, Rales, Rhonchi Neuro: Alert and responsive, No focal deficits noted Abdomen: Soft, Non-Tender Skin: No rashes noted on visualized skin Musculoskeletal: No Chest Wall Tenderness Extremities: No Clubbing, No Cyanosis, Normal Pulses, Other (Moderate pedal edema, non-pitting. Bilateral lower extremities with discoloration noted. ) Results 04/29/17 00:53 04/29/17 00:53 Lab Results Impressions Chest X-Ray 04/27/17 09:18 IMPRESSION: 1. No acute cardiopulmonary findings. 2. There is a 1.2 cm nodule in the right mid lung, given its density could represent a calcified granuloma. Comparison to prior exams would be helpful beyond 04/23/2017. Otherwise confirmation with a CT can be performed. D/ / 04/27/2017 14:24:56 Faby Conley MD / Nolvia Davila Interpreting Provider: Faby Conley MD Active Medications Acetaminophen (Tylenol) 650 mg PO Q6HR PRN PRN Reason: Mild Pain (1-3) Stop: 10/23/17 18:59 Last Admin: 04/24/17 21:39 Dose: 650 mg Aspirin (Aspirin Ec) 81 mg PO DAILY [facility] Stop: 10/25/17 09:01 Last Admin: 04/29/17 08:45 Dose: 81 mg Atorvastatin Calcium (Lipitor) 40 mg PO HS [facility] Stop: 10/24/17 21:01 Last Admin: 04/28/17 21:26 Dose: 40 mg Dextrose/Water (Dextrose 50% (Syg)) 50 ml IVP ONCE PRN PRN Reason: Hypoglycemia Stop: 10/23/17 15:31 Dextrose/Water (Dextrose 50% (Syg)) 25 ml IVP AD PRN PRN Reason: Hypoglycemia Stop: 10/23/17 19:04 Digoxin (Lanoxin) 0.125 mg PO DAILY [facility] Stop: 10/28/17 09:01 Last Admin: 04/29/17 08:44 Dose: 0.125 mg Diltiazem HCl (Cardizem) 60 mg PO Q6H [facility] Stop: 10/25/17 20:01 Last Admin: 04/29/17 08:45 Dose: 60 mg Glucagon (Glucagen) 1 mg IM ONCE PRN PRN Reason: Hypoglycemia Stop: 10/23/17 19:04 Glucose (Gluctose) 15 gm PO ONCE PRN PRN Reason: Hypoglycemia Stop: 10/23/17 19:04 Glucose (Gluctose) 30 gm PO ONCE PRN PRN Reason: Hypoglycemia Stop: 10/23/17 19:04 Heparin Sodium (Porcine) (Heparin) 7,400 unit 70 unit/kg (7400 unit) IVP Q6HR PRN PRN Reason: SEE COMMENTS Stop: 10/27/17 11:32 Heparin Sodium (Porcine) (Heparin) 3,700 unit 35 unit/kg (3700 unit) IVP Q6H PRN PRN Reason: SEE COMMENTS Stop: 10/27/17 11:32 Last Admin: 04/27/17 21:23 Dose: 3,700 unit Dextrose (Dextrose 5%) 1,000 mls @ 100 mls/hr IVC .Q10H PRN PRN Reason: HYPOGLYCEMIA Stop: 10/23/17 19:04 Heparin Sodium/Dextrose (Heparin 25,000 Unit/500 Ml D5w) 25,000 unit in 500 mls @ 29.428 mls/hr IVC .Q17H CARMEN; 14 UNIT/KG/HR PRN Reason: Protocol Stop: 10/27/17 11:46 Last Titration: 04/29/17 08:46 Dose: 11.98 unit/kg/hr, 25.2 mls/hr Magnesium Sulfate 2 gm/ (Dextrose) 104 mls @ 100 mls/hr IVPB ONCE ONE Stop: 04/29/17 10:26 Insulin Human Lispro (Humalog) 0 units SQ TIDAC [facility] PRN Reason: Protocol Stop: 10/24/17 07:31 Last Admin: 04/29/17 08:45 Dose: Not Given Insulin Human Lispro (Humalog) 0 units SQ HS [facility] PRN Reason: Protocol Stop: 10/24/17 21:01 Last Admin: 04/28/17 23:59 Dose: Not Given Magnesium Oxide (Mag-Ox) 800 mg PO BID [facility] PRN Reason: Protocol Stop: 10/29/17 21:01 Metoprolol Tartrate (Lopressor) 75 mg PO BID [facility] Stop: 10/29/17 21:01 Metoprolol Tartrate (Lopressor) 25 mg PO ONCE ONE Stop: 04/29/17 09:31 Morphine Sulfate (Morphine Sulfate) 2 mg IVP Q4HR PRN PRN Reason: Severe Pain (7-10) Stop: 10/23/17 18:59 Multivitamins/Calcium (Thera M Plus) 1 tab PO QAM [facility] Stop: 10/24/17 09:01 Last Admin: 04/29/17 08:44 Dose: 1 tab Naloxone HCl (Narcan) 0.4 mg IVP Q2MIN PRN PRN Reason: Opioid Reversal Stop: 10/23/17 18:59 Omeprazole (Prilosec) 20 mg PO DAILY@0730 [facility] Stop: 10/27/17 07:31 Last Admin: 04/29/17 08:45 Dose: 20 mg Ondansetron HCl (Zofran) 4 mg IVP Q8HR PRN PRN Reason: Nausea And Vomiting Stop: 10/23/17 18:59 Warfarin Sodium (Coumadin Perpt) 1 each PO DAILY@1800 PRN PRN Reason: SEE COMMENTS Stop: 10/29/17 18:01 - Imaging and Cardiology Chest Xray: report reviewed Echo: report reviewed - EKG Interpretation EKG results cardiology: other (Telemetry reviewed with average HR previous 12 hours noted to be 95, atrial fibrillation. Longest pause 2.3 seconds. PVCs noted.) - VTE Documentation of Mechanical Device: Intermittent pneumatic compression device Consult Discharge Plan - Plan Referrals: Yan Villavicencio DO [Primary Care Provider] - 05/05/17 9:30 am
[2017-04-29] MEDS ORDERED: Diltiazem CD (24hr) 240 MG CAPSULE PO ONE (15:00)
--- NOTE | 2017-04-29 17:27 | Internal Med Progress Note ---
Date of Encounter: 04/29/17 Time of Encounter: 10:45 - Assessment and plan (1) Atrial fibrillation with RVR Current Visit: Yes Status: Acute Assessment and plan: patient presents with palpitations, shortness of breath and lightheadedness. He was found to have new onset afib with rvr. Appreciate cardiology input. HR was better controlled overnihgt but it went up again to the 130s this morning. continue digoxin, oral cardizem and increase metoprolol. heparin drip/coumadin. property assessment monitor. (2) Pancytopenia Current Visit: Yes Status: Acute Assessment and plan: anemia and leukpenia have resolved. Thrombocytopenia is improving. could be secondary to viral infection (pt had cold symptoms a week ago). (3) UMU (acute kidney injury) Current Visit: Yes Status: Resolved Assessment and plan: resolved. Pre-renal from dehydration. received IV fluid hydration. (4) Type 2 diabetes mellitus Current Visit: Yes Status: Acute Assessment and plan: fasting glucose is adequate. Accu-Chek 4 times a day with sliding scale coverage Qualifiers: Diabetes mellitus complication status: without complication Diabetes mellitus alf insulin use: without long term care phlebotomist use Qualified Code(s): E11.9 - Type 2 diabetes mellitus without complications (5) Lung nodule Current Visit: Yes Status: Acute Assessment and plan: cxr shows incidental lung nodule 1.2 cm. f/u as outpatient. - Subjective Interval history: he denies any chest pain or shortness of breath. - Constitutional Vitals: Temp Pulse Resp BP Pulse Ox 98.1 F 78 17 98/69 98 04/29/17 16:17 04/29/17 16:17 04/29/17 16:17 04/29/17 16:17 04/29/17 16:17 General appearance: Present: cooperative, A&O X 3, pleasant, no acute distress, answers questions appropriately - Eye Eye exam: Present: PERRL, sclera anicteric - Neck Neck exam general surgery: Present: supple, trachea midline. Absent: lymphadenopathy - Respiratory Respiratory exam: Present: CTAB - Cardiovascular Cardiovascular exam: Present: RRR - GI/Abdominal GI/Abdominal exam: Present: soft. Absent: distended, tenderness - Extremities Exam Extremities exam: Present: pedal edema (1+ Le edema) - Back Exam Back exam: Absent: CVA tenderness (L), CVA tenderness (R) - Neurological Exam Neurological exam: Present: alert, oriented X3, no focal deficits, strengths equal and symetr throughout. Absent: pronater drift, facial droop, speech deficit - Skin Skin exam: Absent: rash Internal Medicine: Result - Labs CBC & Chem 7: 04/29/17 00:53 04/29/17 00:53 Labs: Short CBC 04/29/17 Range/Units 00:53 WBC 6.7 (4.3-11.1) K/mcL Hgb 12.6 L (12.9-16.9) g/dL Hct 38.7 (37.5-50.1) % Plt Count 183 (140-400) K/mcL Neutrophils # 2.7 (1.6-8.9) K/mcL BMP 04/29/17 00:53 Sodium 138 Potassium 4.1 Chloride 107 Carbon Dioxide 24 BUN 11 Creatinine 0.86 Glucose 188 H Calcium 8.5 L Liver Function 04/29/17 Range/Units 00:53 Total Bilirubin 0.7 (0.2-1.2) mg/dL AST 48 H (5-34) Units/L ALT 82 H (0-55) Units/L Alkaline Phosphatase 79 (38-126) Units/L Albumin 2.7 L (3.5-5.0) g/dL - ABG Interpretation ABG results: PT/INR, D-dimer PT 14.1 Seconds (9.4-12.1) H 04/29/17 00:53 - Impressions Impressions Chest X-Ray 04/27/17 09:18 IMPRESSION: 1. No acute cardiopulmonary findings. 2. There is a 1.2 cm nodule in the right mid lung, given its density could represent a calcified granuloma. Comparison to prior exams would be helpful beyond 04/23/2017. Otherwise confirmation with a CT can be performed. D/ / 04/27/2017 14:24:56 Faby Conley MD / Nolvia Davila Interpreting Provider: Faby Conley MD - VTE Documentation of Mechanical Device: Intermittent pneumatic compression device Consult Discharge Plan - Plan Referrals: Yan Villavicencio DO [Primary Care Provider] - 05/05/17 9:30 am
[2017-04-29] MEDS ORDERED: *HR* Warfarin 3 MG TABLET PO SCH (18:00)
[2017-04-29] MEDS ORDERED: Warfarin perPT PO PRN (18:00)
[2017-04-30 05:36] LABS: Basophils % 0.5 %; Eosinophils # 0.2 K/mcL (0.0-0.6); Eosinophils % 2.4 %; Hematocrit 37.8 % (37.5-50.1); Hemoglobin 12.7 g/dL (12.9-16.9); Immature Granulocytes % 0.9 % (0-4); Lymphocytes # 3.2 K/mcL (0.6-4.6); Lymphocytes % 42.4 %; Mean Corpuscular HGB Conc 33.6 g/dL (31.6-35.5); Mean Corpuscular Hemoglobin 29.5 pg (28.0-33.3); Mean Corpuscular Volume 87.7 fL (83.0-100.0); Mean Platelet Volume 10.1 fL (9.4-12.4); Monocytes # 0.4 K/mcL (0.0-1.3); Monocytes % 5.8 %; Neutrophils # 3.6 K/mcL (1.6-8.9); Platelet Count 234 K/mcL (140-400); Red Blood Count 4.31 M/mcL (4.19-5.50); Red Cell Distribution Width 15.9 % (11.5-14.5)
[2017-04-30 05:41] LABS: INR 1.2; Prothrombin Time 13.4 Seconds (9.4-12.1)
[2017-04-30 05:54] LABS: BUN/Creatinine Ratio 14 (6-26); Blood Urea Nitrogen 12 mg/dL (8-26); Calcium 8.9 mg/dL (8.6-10.8); Carbon Dioxide 26 mEq/L (19-29); Chloride 105 mEq/L (98-109); Glucose 192 mg/dL (70-99); Osmolality,Calculated 289 (280-300); Potassium 4.4 mEq/L (3.5-4.5); Sodium 137 mEq/L (136-145); eGFR For African Americans > 60 (> 60); eGFR For Non-African Americans > 60 (> 60)
[2017-04-30 07:41] VITALS: BP 110/78
[2017-04-30] MEDS: Multivit/Ca/Min/Fe/FA 1 TAB TABLET PO SCH (07:45)
[2017-04-30] MEDS: Aspirin Enteric Coated 81 MG Tablet PO SCH (07:45)
[2017-04-30] MEDS: *HR* Digoxin 0.125 MG TABLET PO SCH (07:45)
[2017-04-30] MEDS: Magnesium Oxide 400 MG TABLET PO SCH (07:46)
[2017-04-30] MEDS: Insulin LISPRO 300 UNITS/3 ML VIAL SQ SCH (07:47)
--- NOTE | 2017-04-30 08:27 | Discharge Summary ---
Date of Encounter: 04/30/17 Time of Encounter: 08:00 - Discharge Diagnosis (1) Atrial fibrillation with RVR Priority: Primary Status: Acute (2) Pancytopenia Priority: Primary Status: Acute (3) UMU (acute kidney injury) Priority: Primary Status: Resolved (4) Type 2 diabetes mellitus Priority: Secondary Status: Chronic Qualifiers: Diabetes mellitus complication status: without complication Diabetes mellitus fdc insulin use: without superintendent terminal use Qualified Code(s): E11.9 - Type 2 diabetes mellitus without complications (5) Lung nodule Priority: Secondary Status: Chronic - Discharge Medications Prescriptions: Aspirin Enteric Coated [Aspirin EC] 81 mg PO DAILY #30 Digoxin [Lanoxin] 0.125 mg PO DAILY #30 tab Diltiazem CD (24hr) [Cardizem CD] 240 mg PO DAILY #30 Magnesium Oxide [Mag-Ox] 800 mg PO BID #120 tab Metoprolol [Lopressor] 75 mg PO BID #90 tab Warfarin [Coumadin] 3 mg PO DAILY@1800 #30 tab Home Medications: Atorvastatin [Lipitor] 40 mg PO QPM 04/23/17 [History] GlipiZIDE [Glipizide Xl] 5 mg PO QAM 04/23/17 [History] Loratadine [Claritin] 10 mg PO QAM 04/23/17 [History] Metformin HCl [Glucophage] 1,000 mg PO QAM 04/23/17 [History] Multivit-Min/FA/Lycopen/Lutein [Centrum Silver Tablet] 1 each PO QAM 04/23/17 [ History] metFORMIN [Glucophage] 500 mg PO QPM 04/23/17 [History] Aspirin Enteric Coated [Aspirin EC] 81 mg PO DAILY #30 04/30/17 [Rx] Digoxin [Lanoxin] 0.125 mg PO DAILY #30 tab 04/30/17 [Rx] Diltiazem CD (24hr) [Cardizem CD] 240 mg PO DAILY #30 04/30/17 [Rx] Magnesium Oxide [Mag-Ox] 800 mg PO BID #120 tab 04/30/17 [Rx] Metoprolol [Lopressor] 75 mg PO BID #90 tab 04/30/17 [Rx] Warfarin [Coumadin] 3 mg PO DAILY@1800 #30 tab 04/30/17 [Rx] Allergies/Adverse Reactions: Allergies bee venom protein (honey bee) Allergy (Verified 04/24/17 07:00) See Comments Penicillins Allergy (Verified 04/23/17 15:33) See Comments Date of admission: 04/23/17 18:58 Primary care physician: Yan Villavicencio Consults: 04/23/17 19:02 Consult to Cardiology [CONS] Routine Comment: Consulting Provider: Milan Jaquez Reason for Consult: afib with rvr Call Completed: No 04/25/17 08:49 PT [Consult to Physical Therapy] [CONS] Routine Comment: Evaluate, develop and implement POC Reason for Consult: Ambulate 04/26/17 09:40 OT [Consult to Occupational Therapy] [CONS] Routine Comment: Evaluate, develop and implement POC Reason for Consult: Rehab assessment 04/27/17 09:07 Consult to Cardiology [CONS] Routine Comment: Consulting Provider: Milan Jaquez Reason for Consult: AFIB RVR Call Completed: Yes - Patient Status Disposition: Home, Self-Care Condition: Good Functional capacity at discharge: independent ambulation Overall status at discharge: patient is progressing back to baseline - Discharge Instructions Instructions: Metoprolol (By mouth), Diltiazem (By mouth), Digoxin (By mouth), Warfarin (By mouth), Atrial Fibrillation (GEN) Follow Up With: Anticoagulation, Clinic [Other] - 05/04/17 2:45 pm (Please take a list of your medication with you and your bottle of Warfin to your appointment. The first appointment usually takes about 1 hour. If you need to cancel or reschedule please call [phone], ) Christa Sy CNP [Partnered Physician] - 06/11/17 8:00 am Yan Villavicencio DO [Primary Care Provider] - 05/05/17 9:30 am Additional Instructions: check blood sugars before meals and at bedtime, write down numbers and bring record to doctor's appointment. check blood pressure twice daily, same time in the morning and evening, write down numbers and bring record to doctor's appointment. follow up in the coumadin clinic. - Diet and Activity Activity: resume usual activities as tolerated Diet: diabetic diet, low fat, low cholesterol, low salt diet Interval History: patient has no complains. no chest pain. no shortness of breath. he is eager to go home. Hospital course: Mr. De La Rosa is a 67 year old male with past medical history of diabetes, hypertension and hyperlipidemia presented with a chief complaint of generalized weakness and palpitations. He was diagnosed with new onset atrial fibrillation with rapid ventricular response and was started on IV Cardizem drip and then transitioned to oral Cardizem and oral metoprolol with initial controlled of his heart rate but then it went up to the 140s. He was started on digoxin with good control of his heart rate. Echocardiogram revealed grossly normal LV systolic function, no significant valvular dysfunction. He was also started on heparin drip and Coumadin for CHADs-VASC score of 3. His troponins were mildly elevated likely secondary to demand ischemia. He remained hemodynamically stable and asymptomatic. PLAN: Follow up in the cardiology clinic in one week. Follow-up with primary care physician next week for incidental lung nodule. Follow-up in the Coumadin clinic as scheduled. - Time Spent with Patient Total time spent providing and/or coordinating discharge services: - Constitutional Vitals: Temp Pulse Resp BP Pulse Ox 98.3 F 86 16 110/78 94 04/30/17 07:32 04/30/17 07:32 04/30/17 07:32 04/30/17 07:32 04/30/17 07:32 General appearance: Present: cooperative, A&O X 3, pleasant, no acute distress, answers questions appropriately - Neck Neck exam general surgery: Present: supple, trachea midline. Absent: lymphadenopathy - Respiratory Respiratory exam: Present: CTAB - Cardiovascular Cardiovascular exam: Present: irregular rhythm - GI/Abdominal GI/Abdominal exam: Present: normal bowel sounds, soft. Absent: distended, tenderness - Extremities Exam Extremities exam: Present: pedal edema (1+ LE edema) - Back Exam Back exam: Absent: CVA tenderness (L), CVA tenderness (R) - Neurological Exam Neurological exam: Present: alert, oriented X3, no focal deficits, strengths equal and symetr throughout. Absent: facial droop, speech deficit - VTE Documentation of Mechanical Device: Intermittent pneumatic compression device
--- NOTE | 2017-04-30 08:58 | Cardiology Progress Note ---
Date of Encounter: 04/30/17 Time of Encounter: 09:00 Assessment and Plan (1) Atrial fibrillation with RVR Current Visit: Yes Status: Acute Per cardiology: -New onset atrial fibrillation/flutter--unclear etiology and chronicity. Flu like symptoms for nearly 1 week. Pancytopenia noted. Lactic acid 2.9. -Rate remains uncontrolled. -On lopressor 75mg BID and cardizem CD 240mg, and digoxin 0.125mg. -TTE: no significant valvular dysfunction, unable to determine LVEF given RVR. Recommend repeating in outpatient setting. -CHA2Ds Vasc= 3 (HTN, DMII, age). Patient was aware of increased risk of stroke due to not on anticoagulation. Per review of hematology's note, ok to start anticoagulation. -Patient currently on heparin drip.Hemoglobin stable. Denies active bleeding. COumadin was started yesterday. -Average HR previous 12 hours noted to be 98, atrial fibrillation. -BPs currently 110s systolic. -Cardiology will sign off and will follow in outpatient setting. Follow up set. -Pateint educated on cardiac medications and when to call cardiology office. (2) Elevated troponin Current Visit: Yes Status: Acute Per cardiology: -Mild, adynamic troponin elevation in the setting of afib/flutter with RVR, UMU , and GI bleed. -This likely represents demand ischemia, patient is chest pain free. -Continue asa, statin, and betablocker. -Consider repeating TTE in the outpatient setting once HR control improved. -No cardiac rehab warranted at this time. (3) GIB (gastrointestinal bleeding) Current Visit: Yes Status: Acute Per cardiology: -Defer further mgmt to primary service. -Recommend GI evaluation. -Stool for OB positive. -Hemoglobin stable. -Seen by hematology. Qualifiers: GI bleed type/associated pathology: melena Qualified Code(s): K92.1 - Melena (4) Hypotension Current Visit: Yes Status: Resolved Per cardiology: -SBPs 110s systolic currently. -Has been re-hydrated. NEt positive 6L. Qualifiers: Hypotension type: unspecified hypotension type Qualified Code(s): I95.9 - Hypotension, unspecified (5) Thrombocytopenia Current Visit: Yes Status: Acute Per cardiology: -PLatelets on admission 81. -Currently improved. -Seen by hematology, per review of their note, stated that platelets are not a contraindication to anticoagulation. Discussion w patient/family: The assessment and plan as outlined above was discussed with the patient who expressed understanding and agreement. All questions were answered. Thank you for involving us in the care of your patient. Please call with any questions. Discussed and reviewed with . Subjective Principal diagnosis: Afib with RVR Interval history: Patient admitted for weakness after diarrheal illness. Patient noted to be atrial fibrillation with RVR. Cardiology had previously seen and signed off. Patient on metoprolol, cardizem, and digoxin. Average HR overnight noted to be 98. Objective Vital Signs, Last 4 Hours Temp Pulse Resp BP Pulse Ox 04/30/17 07:40 105 04/30/17 07:32 98.3 F 86 16 110/78 94 General: Conversant, No Apparent Distress HEENT: Atraumatic, Normocephaly, Mucus Membranes Moist Neck: No JVD, Normal carotid pulses Cardiac: Other (Irregularly, irregular) Lungs: Normal Breath Sounds, No Wheeze, Rales, Rhonchi Neuro: Alert and responsive, No focal deficits noted Abdomen: Soft, Non-Tender Skin: No rashes noted on visualized skin Musculoskeletal: No Chest Wall Tenderness Extremities: No Clubbing, No Cyanosis, Other (MOderate pedal edema. Bilateral lower extremities with discoloration. ) Results 04/30/17 05:08 04/30/17 05:08 Lab Results Active Medications Acetaminophen (Tylenol) 650 mg PO Q6HR PRN PRN Reason: Mild Pain (1-3) Stop: 10/23/17 18:59 Last Admin: 04/24/17 21:39 Dose: 650 mg Aspirin (Aspirin Ec) 81 mg PO DAILY [facility] Stop: 10/25/17 09:01 Last Admin: 04/30/17 07:45 Dose: 81 mg Atorvastatin Calcium (Lipitor) 40 mg PO HS [facility] Stop: 10/24/17 21:01 Last Admin: 04/29/17 20:57 Dose: 40 mg Dextrose/Water (Dextrose 50% (Syg)) 50 ml IVP ONCE PRN PRN Reason: Hypoglycemia Stop: 10/23/17 15:31 Dextrose/Water (Dextrose 50% (Syg)) 25 ml IVP AD PRN PRN Reason: Hypoglycemia Stop: 10/23/17 19:04 Digoxin (Lanoxin) 0.125 mg PO DAILY [facility] Stop: 10/28/17 09:01 Last Admin: 04/30/17 07:45 Dose: 0.125 mg Diltiazem HCl (Cardizem Cd) 240 mg PO DAILY [facility] Stop: 10/30/17 09:01 Last Admin: 04/30/17 07:45 Dose: 240 mg Glucagon (Glucagen) 1 mg IM ONCE PRN PRN Reason: Hypoglycemia Stop: 10/23/17 19:04 Glucose (Gluctose) 15 gm PO ONCE PRN PRN Reason: Hypoglycemia Stop: 10/23/17 19:04 Glucose (Gluctose) 30 gm PO ONCE PRN PRN Reason: Hypoglycemia Stop: 10/23/17 19:04 Heparin Sodium (Porcine) (Heparin) 7,400 unit 70 unit/kg (7400 unit) IVP Q6HR PRN PRN Reason: SEE COMMENTS Stop: 10/27/17 11:32 Heparin Sodium (Porcine) (Heparin) 3,700 unit 35 unit/kg (3700 unit) IVP Q6H PRN PRN Reason: SEE COMMENTS Stop: 10/27/17 11:32 Last Admin: 04/27/17 21:23 Dose: 3,700 unit Dextrose (Dextrose 5%) 1,000 mls @ 100 mls/hr IVC .Q10H PRN PRN Reason: HYPOGLYCEMIA Stop: 10/23/17 19:04 Heparin Sodium/Dextrose (Heparin 25,000 Unit/500 Ml D5w) 25,000 unit in 500 mls @ 29.428 mls/hr IVC .Q17H CARMEN; 14 UNIT/KG/HR PRN Reason: Protocol Stop: 10/27/17 11:46 Last Admin: 04/29/17 21:59 Dose: 11.98 unit/kg/hr, 25.182 mls/hr Insulin Human Lispro (Humalog) 0 units SQ TIDAC CARMEN PRN Reason: Protocol Stop: 10/24/17 07:31 Last Admin: 04/30/17 07:47 Dose: 4 units Insulin Human Lispro (Humalog) 0 units SQ HS [facility] PRN Reason: Protocol Stop: 10/24/17 21:01 Last Admin: 04/29/17 20:56 Dose: Not Given Magnesium Oxide (Mag-Ox) 800 mg PO BID CARMEN PRN Reason: Protocol Stop: 10/29/17 21:01 Last Admin: 04/30/17 07:46 Dose: 800 mg Metoprolol Tartrate (Lopressor) 75 mg PO BID [facility] Stop: 10/29/17 21:01 Last Admin: 04/30/17 07:46 Dose: 75 mg Morphine Sulfate (Morphine Sulfate) 2 mg IVP Q4HR PRN PRN Reason: Severe Pain (7-10) Stop: 10/23/17 18:59 Multivitamins/Calcium (Thera M Plus) 1 tab PO QAM [facility] Stop: 10/24/17 09:01 Last Admin: 04/30/17 07:45 Dose: 1 tab Naloxone HCl (Narcan) 0.4 mg IVP Q2MIN PRN PRN Reason: Opioid Reversal Stop: 10/23/17 18:59 Omeprazole (Prilosec) 20 mg PO DAILY@0730 [facility] Stop: 10/27/17 07:31 Last Admin: 04/30/17 07:45 Dose: 20 mg Ondansetron HCl (Zofran) 4 mg IVP Q8HR PRN PRN Reason: Nausea And Vomiting Stop: 10/23/17 18:59 Warfarin Sodium (Coumadin Perpt) 1 each PO DAILY@1800 PRN PRN Reason: SEE COMMENTS Stop: 10/29/17 18:01 Warfarin Sodium (Coumadin) 3 mg PO DAILY@1800 [facility] Stop: 10/29/17 18:01 Last Admin: 04/29/17 16:49 Dose: 3 mg - Imaging and Cardiology Chest Xray: report reviewed Echo: report reviewed - EKG Interpretation EKG results cardiology: other (Telemetry reviewed with average HR previous 12 hours noted to be 98, atrial fibrillation. LOngest pause 1.9 seconds. PVCs noted.) - VTE Documentation of Mechanical Device: Intermittent pneumatic compression device Consult Discharge Plan - Plan Instructions: Metoprolol (By mouth), Diltiazem (By mouth), Digoxin (By mouth), Warfarin (By mouth), Atrial Fibrillation (GEN) Additional Instructions: check blood sugars before meals and at bedtime, write down numbers and bring record to doctor's appointment. check blood pressure twice daily, same time in the morning and evening, write down numbers and bring record to doctor's appointment. follow up in the coumadin clinic. Referrals: Damaris Rivas, KWADWO [Advanced Practice Nurse] - SpeonkYan joshi DO [Primary Care Provider] - 05/05/17 9:30 am Prescriptions: Aspirin Enteric Coated [Aspirin EC] 81 mg PO DAILY #30 Digoxin [Lanoxin] 0.125 mg PO DAILY #30 tab Diltiazem CD (24hr) [Cardizem CD] 240 mg PO DAILY #30 Magnesium Oxide [Mag-Ox] 800 mg PO BID #120 tab Metoprolol [Lopressor] 75 mg PO BID #90 tab Warfarin [Coumadin] 3 mg PO DAILY@1800 #30 tab
[2017-04-30] MEDS ORDERED: Diltiazem CD (24hr) 240 MG CAPSULE PO SCH (09:00)
== END 2017-04-30 12:02 | disposition home or self-care (01) | DRG 309 ==
LOC: EMEROO 15:23 → 2NNU 15:23 → SUATTDRO 18:58 → 2NNU 19:40
PROVIDERS: ADMIT Internal Medicine; ATTEND Internal Medicine

== ENCOUNTER 2017-06-02 22:39 | Inpatient (IN) ==
--- NOTE | 2017-06-02 23:13 | Emergency Department Note ---
Disposition Clinical Impression: Atrial flutter Qualifiers: Atrial flutter type: unspecified Qualified Code(s): I48.92 - Unspecified atrial flutter Disposition: Admitted As Inpatient Condition: Good Time of Disposition: 05:02 General Adult HPI - General Chief complaint: ED Arrhythmia/Palpitations Stated complaint: afib, cardiologists sent him here Time Seen by Provider: 06/02/17 22:51 Source: patient Nursing Notes Reviewed: Yes Vital Signs Reviewed: Yes - History of Present Illness HPI Narrative: Patient complaining of a two-day history of his heart racing. He has tried his Toprol and digoxin with no relief today. Yesterday he did get some relief of his tachycardia. He denies any other complaints. He has no shortness of breath no chest pain no nausea vomiting diarrhea. Pain Scale: 0 - Related Data Home Medications Medication Instructions Recorded Confirmed Atorvastatin [Lipitor] 40 mg PO QPM 04/23/17 04/23/17 GlipiZIDE [Glipizide Xl] 5 mg PO QAM 04/23/17 04/23/17 Loratadine [Claritin] 10 mg PO QAM 04/23/17 04/23/17 Metformin HCl [Glucophage] 1,000 mg PO QAM 04/23/17 04/23/17 Multivit-Min/FA/Lycopen/Lutein 1 each PO QAM 04/23/17 04/23/17 [Centrum Silver Tablet] metFORMIN [Glucophage] 500 mg PO QPM 04/23/17 04/23/17 Previous Rx's Medication Instructions Recorded Aspirin Enteric Coated [Aspirin EC] 81 mg PO DAILY #30 04/30/17 Digoxin [Lanoxin] 0.125 mg PO DAILY #30 tab 04/30/17 Diltiazem CD (24hr) [Cardizem CD] 240 mg PO DAILY #30 04/30/17 Magnesium Oxide [Mag-Ox] 800 mg PO BID #120 tab 04/30/17 Metoprolol [Lopressor] 75 mg PO BID #90 tab 04/30/17 Warfarin [Coumadin] 3 mg PO DAILY@1800 #30 tab 04/30/17 Allergies Allergy/AdvReac Type Severity Reaction Status Date / Time bee venom protein (honey bee) Allergy See Verified 06/02/17 22:46 Comments Penicillins Allergy See Verified 06/02/17 22:46 Comments All systems ED: reviewed and negative except as stated. Constitutional: Denies: fever, chills ENT ED: Denies: congestion Cardiovascular: Reports: other (Denies the feeling that his heart is racing just noticed that it was going fast whenever he was taking his blood pressure.) . Denies: chest pain, palpitations, syncope Respiratory: Denies: cough, dyspnea Gastrointestinal: Denies: abdominal pain, nausea, vomiting, diarrhea Genitourinary: Denies: urgency, dysuria, frequency Musculoskeletal: Denies: back pain, neck pain Integumentary: Denies: rash, abrasion Neurological: Denies: headache, weakness Past Medical History - Past Medical History Attestation: Yes The following information was validated with the patient. Source: patient Medical history: Reports: diabetes, hyperlipidemia, hypertension Surgical history: Reports: herniorrhaphy, orthopedic, other Psychiatric history: Reports: no psych history - Social History Smoking Status: Former smoker Smokeless Tobacco Status: No Alcohol use: Reports: occasionally Drug use: Reports: none Physical Exam - General Limitations: no limitations General appearance: alert, in no apparent distress - Head Head exam: atraumatic, normocephalic, normal inspection - Eye Eye exam: Present: normal appearance, PERRL, EOMI. Absent: scleral icterus - ENT ENT exam: normal exam, normal oropharynx, mucous membranes moist - Neck Neck exam: Present: normal inspection, full ROM, trachea midline. Absent: tenderness, meningismus, lymphadenopathy - Chest Chest inspection: Present: normal inspection, symmetric chest wall rise - Respiratory Respiratory exam: Present: normal lung sounds bilaterally. Absent: respiratory distress, wheezes, accessory muscle use - Cardiovascular Cardiovascular exam: Present: regular rate, tachycardia, normal heart sounds - Abdominal Exam Abdominal exam: Present: soft, Non-Tender, normal bowel sounds. Absent: tenderness, distention, guarding, rebound, rigidity, organomegaly - Extremities Exam Extremities exam: Present: normal inspection, full ROM, normal capillary refill , pedal edema (Mild. Patient states is chronic.). Absent: tenderness - Back Exam Back exam: Present: normal inspection, full ROM. Absent: tenderness, CVA tenderness (R), CVA tenderness (L) - Neurological Exam Neurological exam: Present: alert, oriented X3 - Psychiatric Psychiatric exam: Present: normal affect, normal mood - Skin Skin exam: Present: warm, dry, intact, normal color Course Course Narrative: Well appearing male patient presenting to the emergency department complaining of a fast heart rate. He has no other complaints. Denies any shortness of breath or chest pain. He states that he has had this happen to him previously and had to be placed on medication. However after he was discharged from the hospital in April he was told not to take his Toprol or digoxin whenever his heart rate was below 60. So he has not been taking this. He states last night noticed his heart rate was up whenever he took his blood pressure at home. He had no symptoms at that time however he did talk to the showroom salesperson chinese medicine practitioner who instructed him to take his digoxin and Toprol and that he needed to be taking this daily. They took his medication as prescribed. States that in the afternoon he noticed his heart was speeding up again so he called the showroom salesperson and they stated to take another dose of the Toprol. It was still elevated this evening so he took a third dose of his Toprol. He is still tachycardic while here. His in the rates of 130s to 140s. He denies any chest pain shortness of breath. He is not diaphoretic. He does not appear to be in distress. He is normotensive with this. Patient is requesting not to be admitted to the hospital. We attempted Cardizem bolus as well as a Toprol IV push. This did not control patient's heart rate. He stayed asymptomatic while he was here. We then placed the patient on a Cardizem drip to help control his heart rate. We have gotten a basic lab workup. Patient does appear to be in atrial flutter on his EKG. We will admit patient to the hospital. He is agreeable however reluctant to be admitted. - Consultations Consultation #1: Dr. Bolaños accepted patient in stable condition. He is requesting that we give the patient 2 g of mag and 20 mg of potassium. I have ordered this. Time: 03:52 Vital Signs Temperature 98.3 F 06/02/17 22:42 Pulse Rate 134 06/02/17 22:42 Respiratory Rate 16 06/02/17 22:42 Blood Pressure 115/81 06/02/17 22:42 O2 Sat by Pulse Oximetry 98 06/02/17 22:42 Temperature 98.3 F 06/02/17 22:42 Pulse Rate 134 06/03/17 03:34 Respiratory Rate 18 06/03/17 04:32 Blood Pressure 129/85 06/03/17 04:32 O2 Sat by Pulse Oximetry 99 06/03/17 03:34 Oxygen Delivery Oxygen Delivery Room Air Medical Decision Making - Medical Records Medical records reviewed: Yes I reviewed the patient's medical records. - Lab Data Lab results reviewed: Yes I reviewed the patient's lab results. Result diagrams: 06/03/17 02:36 06/03/17 02:36 Lab Results 06/03/17 06/03/17 06/03/17 Range/Units 02:36 02:36 02:36 WBC 6.8 (4.3-11.1) K/mcL RBC 5.03 (4.19-5.50) M/mcL Hgb 14.6 (12.9-16.9) g/dL Hct 44.1 (37.5-50.1) % MCV 87.7 (83.0-100.0) fL MCH 29.0 (28.0-33.3) pg MCHC 33.1 (31.6-35.5) g/dL RDW 15.3 H (11.5-14.5) % Plt Count 149 (140-400) K/mcL MPV 9.2 L (9.4-12.4) fL Immature Gran % 0.1 (0-4) % Seg Neutrophils % 45.1 % Lymphocytes % 42.5 % Monocytes % 6.0 % Eosinophils % 5.6 % Basophils % 0.7 % Neutrophils # 3.1 (1.6-8.9) K/mcL Lymphocytes # 2.9 (0.6-4.6) K/mcL Monocytes # 0.4 (0.0-1.3) K/mcL Eosinophils # 0.4 (0.0-0.6) K/mcL Basophils # 0.1 (0.0-0.2) K/mcL PT (9.4-12.1) Seconds INR Sodium 139 (136-145) mEq/L Potassium 4.0 (3.5-4.5) mEq/L Chloride 107 (98-109) mEq/L Carbon Dioxide 23 (19-29) mEq/L BUN 33 H (8-26) mg/dL Creatinine 1.08 (0.72-1.25) mg/dL Est GFR ( Amer) > 60 (> 60) Est GFR (Non-Af Amer) > 60 (> 60) BUN/Creatinine Ratio 31 H (6-26) Glucose 95 (70-99) mg/dL Calculated Osmolality 295 (280-300) Calcium 9.4 (8.6-10.8) mg/dL Magnesium 1.8 (1.6-2.6) mg/dL Troponin I 0.01 (0-0.03) ng/mL 06/03/17 Range/Units 02:36 WBC (4.3-11.1) K/mcL RBC (4.19-5.50) M/mcL Hgb (12.9-16.9) g/dL Hct (37.5-50.1) % MCV (83.0-100.0) fL MCH (28.0-33.3) pg MCHC (31.6-35.5) g/dL RDW (11.5-14.5) % Plt Count (140-400) K/mcL MPV (9.4-12.4) fL Immature Gran % (0-4) % Seg Neutrophils % % Lymphocytes % % Monocytes % % Eosinophils % % Basophils % % Neutrophils # (1.6-8.9) K/mcL Lymphocytes # (0.6-4.6) K/mcL Monocytes # (0.0-1.3) K/mcL Eosinophils # (0.0-0.6) K/mcL Basophils # (0.0-0.2) K/mcL PT 19.6 H (9.4-12.1) Seconds INR 1.8 Sodium (136-145) mEq/L Potassium (3.5-4.5) mEq/L Chloride (98-109) mEq/L Carbon Dioxide (19-29) mEq/L BUN (8-26) mg/dL Creatinine (0.72-1.25) mg/dL Est GFR ( Amer) (> 60) Est GFR (Non-Af Amer) (> 60) BUN/Creatinine Ratio (6-26) Glucose (70-99) mg/dL Calculated Osmolality (280-300) Calcium (8.6-10.8) mg/dL Magnesium (1.6-2.6) mg/dL Troponin I (0-0.03) ng/mL - Radiology Data Radiology results reviewed: Yes I reviewed the patient's radiology results. Chest X-Ray 06/03/17 02:34 IMPRESSION: 1. No acute abnormality. D/ / Jesús Maldonado MD / Jesús Maldonado MD Interpreting Provider: Jesús Maldonado MD - EKG Data EKG #1 EKG attestation: Yes I reviewed and interpreted this EKG. EKG results narrative: Atrial tachycardia with RVR at a rate of 136. QRS duration is 98. QT is 282. QTC is 361. No signs of acute ischemia. Patient was in this rhythm in 2016 as well. Critical Care Time Critical Care Time: Yes Total Critical Care Time: 40 Attestation: Critical care performed: Time is exclusive of separately billable procedures. Time includes: direct patient care, patient reassessment, coordination of patient care, interpretation of data (laboratory data, radiology data, and respiratory data), review of patient's medical records, medical consultation and documentation of patient care. Procedures included in critical care time: Procedures excluded from critical care time: Attestation Statement - Attestation Attestation: I, Jp Martinez MD, personally evaluated this patient and discussed their management with the resident physician. I reviewed the resident's note and agree with the documented findings, medical decision making, and plan of care. 67-year-old male presents to the emergency department with a complaint of atrial fibrillation for 1 day prior to arrival. Patient has a history of atrial fibrillation which first started about 6 weeks ago. He was admitted to the hospital and states that he was still in atrial fibrillation when he was discharged but then converted shortly afterwards. He is on Coumadin. He reports that yesterday when he was checking his blood pressure at home that his blood pressure monitor signaled that his heart was irregular. He states that since then he has been monitoring his heart rate and is been irregular and "all over the place". He states anywhere from 90 to 180. He denies any symptoms. No palpitations. No chest pain or shortness of breath. No dizziness or syncope. He called his showroom salesperson yesterday and was advised to take his digoxin and metoprolol. He was prescribed these when he left the hospital but apparently someone told him not to take them if his pulse was less than 60 so he has not been taking the medications. He took extra doses of the metoprolol today that his heart rate has continued to be around 130 to 140s. On examination patient is a well-developed well-nourished well-appearing elderly male in no acute distress. He is alert and oriented 3. There is no cyanosis or diaphoresis. Chest is nontender to palpation. Breath sounds are clear and equal bilaterally. Heart is tachycardic and irregularly irregular. Abdomen is soft and nontender with normal bowel sounds. EKG shows atrial fibrillation with RVR. Patient received Cardizem 15 mg IV push with some temporary slowing in his heart rate. He appears to be in atrial flutter. Heart rate then went back to the 130s. He received metoprolol 5 mg IV with no improvement in his heart rate. He was then placed on a Cardizem infusion and we will consult the hospitalist for admission. The hospitalist, Dr. Bolaños, was consulted and accepted admission of the patient.
[2017-06-03] MEDS ORDERED: *HR* Metoprolol 5 MG/5 ML VIAL IVP ONE (00:42)
[2017-06-03] MEDS ORDERED: 0.9 % Sodium Chloride 500 ML IVC ONE (01:17)
[2017-06-03 02:41] LABS: Basophils # 0.1 K/mcL (0.0-0.2); Basophils % 0.7 %; Eosinophils # 0.4 K/mcL (0.0-0.6); Eosinophils % 5.6 %; Hematocrit 44.1 % (37.5-50.1); Hemoglobin 14.6 g/dL (12.9-16.9); Immature Granulocytes % 0.1 % (0-4); Lymphocytes # 2.9 K/mcL (0.6-4.6); Lymphocytes % 42.5 %; Mean Corpuscular HGB Conc 33.1 g/dL (31.6-35.5); Mean Corpuscular Volume 87.7 fL (83.0-100.0); Mean Platelet Volume 9.2 fL (9.4-12.4); Monocytes # 0.4 K/mcL (0.0-1.3); Neutrophils # 3.1 K/mcL (1.6-8.9); Platelet Count 149 K/mcL (140-400); Red Blood Count 5.03 M/mcL (4.19-5.50); Red Cell Distribution Width 15.3 % (11.5-14.5); Segmented Neutrophils % 45.1 %
[2017-06-03 02:46] LABS: INR 1.8; Prothrombin Time 19.6 Seconds (9.4-12.1)
[2017-06-03 02:53] LABS: BUN/Creatinine Ratio 31 (6-26); Blood Urea Nitrogen 33 mg/dL (8-26); Calcium 9.4 mg/dL (8.6-10.8); Carbon Dioxide 23 mEq/L (19-29); Chloride 107 mEq/L (98-109); Glucose 95 mg/dL (70-99); Magnesium 1.8 mg/dL (1.6-2.6); Osmolality,Calculated 295 (280-300); Sodium 139 mEq/L (136-145); eGFR For African Americans > 60 (> 60); eGFR For Non-African Americans > 60 (> 60)
[2017-06-03] MEDS ORDERED: Potassium Citrate 10 MEQ TABLET.ER PO STA (03:49)
[2017-06-03] MEDS ORDERED: Naloxone 0.4 MG/ML INJ IVP PRN (04:38)
--- NOTE | 2017-06-03 04:44 | Internal Med History&Physical ---
<Gabriel Auguste - Last Filed: 06/03/17 04:44> Date of Encounter: 06/03/17 Time of Encounter: 04:43 Assessment and Plan (1) Atrial fibrillation with RVR Current visit: Yes Status: Acute 67-year-old male presents with chief complaint of fast heart rate Patient found to be in A. fib RVR Patient started on Cardizem drip and currently is in atrial fibrillation with heart rate less than 100 Patient states when discharged during last admission he is advised not to take his digoxin and metoprolol if his heart rate was less than 60. States his heart rate is usually less than 60 therefore he did not take his medications. Plan: Transition from Cardizem drip to restarting his medications digoxin, metoprolol , diltiazem. Continue Coumadin Repeat PT/INR tomorrow morning Cardiac telemetry Cardiac ADA diet (2) Hyperlipidemia Current visit: Yes Status: Chronic History of hyperlipidemia on atorvastatin. Controlled. Plan: Continue atorvastatin. Qualifiers: Hyperlipidemia type: pure hypercholesterolemia Qualified Code(s): E78.00 - Pure hypercholesterolemia, unspecified; E78.0 - Pure hypercholesterolemia (3) Type 2 diabetes mellitus Current visit: Yes Status: Chronic History of diabetes mellitus 2 Controlled. Last hemoglobin A1c 6.2 On metformin and glipizide Plan: Cardiac ADA diet ACHS Low-dose sliding scale insulin Qualifiers: Diabetes mellitus complication status: without complication Diabetes mellitus clinical education specialist insulin use: without snf use Qualified Code(s): E11.9 - Type 2 diabetes mellitus without complications (4) DVT prophylaxis Current visit: Yes Status: Acute Anticoagulated on Coumadin Internal Medicine - H&P: HPI Chief complaint: Fast heart rate Admitted From: Home Plans for Post Hospital Care: Home History of present illness: Mr. Bauman is a 67 year old male presents with chief complaint of fast heart rate. Patient states he has a history of atrial fibrillation diagnosed last month and started on digoxin, metoprolol, diltiazem. On Wednesday his blood pressure monitor at home notified him that his heart rate was irregular. It was noted that his heart rate ranged from 60-180. Patient states that he was instructed not to take his medications for afib of his heart rate was less than 60 therefore there were a few times patient took his medications as his heart rate is usually less than 60. Patient called his senior statistical programmer who advised him to restart his medications. Patient states that after her next 24 hours his heart rate remained controlled less than 100. Hour yesterday afternoon his heart rate became uncontrolled again he notify his senior statistical programmer instructed him to take additional doses of metoprolol but this did not improve his heart rate. Therefore patient came into the emergency room. He denies passing out, blurry vision, chest pain, palpitations, fever, chills, dry mouth, shortness of breath, cough, abdominal pain, nausea, vomiting, diarrhea, melena, hematochezia , fall, numbness, tingling. Past Med Surg Social Fam HX - Past Medical History Medical history: diabetes, hyperlipidemia, hypertension Psychiatric history: no psych history - Past Surgical History Surgical History: herniorrhaphy, orthopedic, other - Social History Smoking Status: Former smoker Smokeless Tobacco Status: No Alcohol use: occasionally Drug use: none Internal Medicine - H&P: Meds Atorvastatin [Lipitor] 40 mg PO QPM 04/23/17 [History] GlipiZIDE [Glipizide Xl] 5 mg PO QAM 04/23/17 [History] Loratadine [Claritin] 10 mg PO QAM 04/23/17 [History] Metformin HCl [Glucophage] 1,000 mg PO QAM 04/23/17 [History] Multivit-Min/FA/Lycopen/Lutein [Centrum Silver Tablet] 1 each PO QAM 04/23/17 [ History] metFORMIN [Glucophage] 500 mg PO QPM 04/23/17 [History] Aspirin Enteric Coated [Aspirin EC] 81 mg PO DAILY #30 04/30/17 [Rx] Digoxin [Lanoxin] 0.125 mg PO DAILY #30 tab 04/30/17 [Rx] Diltiazem CD (24hr) [Cardizem CD] 240 mg PO DAILY #30 04/30/17 [Rx] Magnesium Oxide [Mag-Ox] 800 mg PO BID #120 tab 04/30/17 [Rx] Metoprolol [Lopressor] 75 mg PO BID #90 tab 04/30/17 [Rx] Warfarin [Coumadin] 3 mg PO DAILY@1800 #30 tab 04/30/17 [Rx] bee venom protein (honey bee) Allergy (Verified 06/02/17 22:46) See Comments Penicillins Allergy (Verified 06/02/17 22:46) See Comments All Systems PM: A 10-system review of systems was performed and is negative for pertinent findings except as documented above in the HPI. - Constitutional Vitals: Temp Pulse Resp BP Pulse Ox 98.3 F 134 18 129/85 99 06/02/17 22:42 06/03/17 03:34 06/03/17 04:32 06/03/17 04:32 06/03/17 03:34 - Other Additional findings: General: Alert and oriented to place time and situation. Without distress HEENT: Head atraumatic, normocephalic, EOMI, PERRLA, neck nontender to palpation , absent Lymphadenopathy, Moist Mucous Membranes, Heart: Irregularly irregular rhythm Lungs: Clear to auscultation bilaterally Abdomen: Soft nontender, nondistended positive bowel sounds Skin: Bilateral lower extremity black/blue discoloration which patient states he has had since being a teenager. Extremities: Absent pedal edema, Neuro: Cranial nerves II through XII intact, sensation equal bilaterally, strength upper and lower extremity 5/5, alert oriented 3 Vascular: Pedal and radialpulses 2 out of 4 Internal Med - H&P Results - Labs CBC & Chem 7: 06/03/17 02:36 06/03/17 02:36 <Salvador Ortega A - Last Filed: 06/03/17 06:25> Date of Encounter: 06/03/17 Internal Medicine - H&P: HPI History of present illness: Mr. Bauman is a 67 year old male Past Med Surg Social Fam HX - Family History Father Adopted: [place]: YOLANDA BAUMAN Family Member Ethnicity: Non- Living Status: Age at : 91 Cause of : UPPER RESPIRATORY INFECTION (WAS IN AN ECF) Hx Family Cardiac Disorders: Yes Hx Family Respiratory Disorders: No Hx Family Cancer: Yes (SKIN CANCER) Hx Family GI Disorders: No Hx Family Genitourinary Disorders: No Hx Family Endocrine Disorder: No Hx Family Musculoskeletal Disorders: No Hx Family Neuromuscular Disorders: Yes (POLIO) Hx Family Neurologic Disorders: No Hx Family HEENT Disorders: Yes (MACULAR DEGENERATION) Hx Family Autoimmune Disorders: No Hx Family Reproductive Disorders: No Hx Family Psychosocial Disorders: No Hx Family Medical Disorders: No Mother Adopted: [employer]: ETHEL IBARRA Family Member Ethnicity: Non- Twin of Family Member: Yes Living Status: Age at : 89 Cause of : RUPTURED BOWEL Hx Family Cardiac Disorders: Yes (A FIB) Hx Family Respiratory Disorders: No Hx Family Cancer: No Hx Family GI Disorders: Yes (CONSTIPATION) Hx Family Genitourinary Disorders: Yes (INCONTINENCE) Hx Family Endocrine Disorder: No Hx Family Musculoskeletal Disorders: Yes (RHEUMATOID ARTHRITIS) Hx Family Neuromuscular Disorders: No Hx Family Neurologic Disorders: No Hx Family HEENT Disorders: Yes (GLAUCOMA) Hx Family Autoimmune Disorders: No Hx Family Reproductive Disorders: No Hx Family Psychosocial Disorders: No Hx Family Medical Disorders: No All Systems PM: A 10-system review of systems was performed and is negative for pertinent findings except as documented above in the HPI. - Constitutional Vitals: Temp Pulse Resp BP Pulse Ox 98.0 F 72 18 115/78 98 06/03/17 05:09 06/03/17 05:09 06/03/17 05:09 06/03/17 05:09 06/03/17 05:09 Internal Med - H&P Results - Labs CBC & Chem 7: 06/03/17 02:36 06/03/17 02:36 - Attending Attestation I personally interviewed and examined this patient and my medical decision- making was reviewed with the Resident Physician. I agree with the documented findings, disposition and treatment plan as described. Salvador Ortega MD, MPH Hospitalist
[2017-06-03] MEDS ORDERED: 0.9 % Sodium Chloride 500 ML ONE (04:48)
[2017-06-03] MEDS ORDERED: Dextrose Gel 15 GM PO PRN ×2 (04:54)
[2017-06-03] MEDS ORDERED: D5% in Water 1,000 ML IVC PRN (04:54)
[2017-06-03] MEDS ORDERED: *HR* Dextrose 50 % in Water (Syg) 50 ML SYRINGE IVP PRN (04:54)
[2017-06-03 07:14] VITALS: BP 127/70
[2017-06-03] MEDS ORDERED: Insulin LISPRO 300 UNITS/3 ML VIAL SQ SCH ×2 (07:30→21:00)
[2017-06-03] MEDS ORDERED: Magnesium Oxide 400 MG TABLET PO SCH (09:00)
[2017-06-03] MEDS ORDERED: *HR* Digoxin 0.125 MG TABLET PO SCH (09:00)
[2017-06-03] MEDS ORDERED: Aspirin Enteric Coated 81 MG Tablet PO SCH (09:00)
--- NOTE | 2017-06-03 10:21 | Discharge Summary ---
<Ramos Roman - Last Filed: 06/03/17 14:30> Date of Encounter: 06/03/17 Time of Encounter: 10:16 - Discharge Diagnosis (1) Atrial fibrillation with RVR Priority: Primary Status: Acute (2) DVT prophylaxis Priority: Secondary Status: Acute (3) Type 2 diabetes mellitus Priority: Secondary Status: Chronic Qualifiers: Diabetes mellitus complication status: without complication Diabetes mellitus penitentiary insulin use: without penitentiary use Qualified Code(s): E11.9 - Type 2 diabetes mellitus without complications (4) Hyperlipidemia Priority: Secondary Status: Chronic Qualifiers: Hyperlipidemia type: pure hypercholesterolemia Qualified Code(s): E78.00 - Pure hypercholesterolemia, unspecified; E78.0 - Pure hypercholesterolemia - Discharge Medications Home Medications: Atorvastatin [Lipitor] 40 mg PO QPM 04/23/17 [History] GlipiZIDE [Glipizide Xl] 5 mg PO QAM 04/23/17 [History] Loratadine [Claritin] 10 mg PO QAM 04/23/17 [History] Metformin HCl [Glucophage] 1,000 mg PO QAM 04/23/17 [History] Multivit-Min/FA/Lycopen/Lutein [Centrum Silver Tablet] 1 each PO QAM 04/23/17 [ History] metFORMIN [Glucophage] 500 mg PO QPM 04/23/17 [History] Aspirin Enteric Coated [Aspirin EC] 81 mg PO DAILY #30 04/30/17 [Rx] Digoxin [Lanoxin] 0.125 mg PO DAILY #30 tab 04/30/17 [Rx] Diltiazem CD (24hr) [Cardizem CD] 240 mg PO DAILY #30 04/30/17 [Rx] Magnesium Oxide [Mag-Ox] 800 mg PO BID #120 tab 04/30/17 [Rx] Metoprolol [Lopressor] 75 mg PO BID #90 tab 04/30/17 [Rx] Warfarin [Coumadin] 9 mg PO 1800 06/03/17 [History] Allergies/Adverse Reactions: 3 Allergy/AdvReac Type Severity Reaction Status Date / Time bee venom protein (honey bee) Allergy Difficulty Verified 06/03/17 08:14 Breathing Penicillins Allergy Rash Verified 06/03/17 08:14 Date of admission: 06/03/17 04:41 Primary care physician: Yan Villavicencio - Patient Status Disposition: Home, Self-Care Condition: Good Functional capacity at discharge: independent ambulation Overall status at discharge: patient is not back to baseline - Discharge Instructions Instructions: Atrial Fibrillation (DC) Follow Up With: Christa Sy CNP [Partnered Physician] - 06/11/17 8:00 am Yan Villavicencio DO [Primary Care Provider] - 06/18/17 (Office will call if they get a cancellation.) - Diet and Activity Activity: increase activity as tolerated Hospital course: Mr. De La Rosa is a 67 year old male came in after BP machine reported irregular heart beat and by instruction of his asp net c developer w/ hx Afib w/RVR diagnosed 1 month ago, HLD, T2DM. On hospitalization patient was tachy at 134, and was started on cardizem drip. Patient was advised by asp net c developer to hold digoxin and metoprolol if HR was <60. On day 1 of admission patient vitals were WNL, home meds restarted and patient requested discharge. Patient was discarged wtih PO dose of Caridzem, pharm dosed his warfarin and Cardiology follow up apt setup. - Time Spent with Patient Total time spent providing and/or coordinating discharge services: - Constitutional Vitals: Temp Pulse Resp BP Pulse Ox 97.5 F L 77 17 127/70 94 06/03/17 07:10 06/03/17 07:10 06/03/17 07:10 06/03/17 07:10 06/03/17 07:10 General appearance: Present: A&O X 3, no acute distress - Head Head exam: Present: atraumatic, normocephalic - Respiratory Respiratory exam: Present: CTAB. Absent: accessory muscle use, rales, rhonchi, wheezes - Cardiovascular Cardiovascular exam: Present: RRR, +S1, +S2. Absent: diastolic murmur, gallop, rubs, systolic murmur - GI/Abdominal GI/Abdominal exam: Present: normal bowel sounds, soft, no peritoneal signs. Absent: distended, tenderness <Shanthi,Brayan P - Last Filed: 06/03/17 18:24> Date of Encounter: 06/03/17 Procedures/tests Complete & Pending: Procedures Performed prior 72 hours Category Date Time Status ECG 12 lead ECG [ECG] Routine Y 06/02/17 22:54 Completed Date of admission: 06/03/17 04:41 Primary care physician: [facility] course: Mr. De La Rosa is a 67 year old male - Time Spent with Patient Total time spent providing and/or coordinating discharge services: - Constitutional Vitals: Temp Pulse Resp BP Pulse Ox 97.5 F L 77 17 127/70 94 06/03/17 07:10 06/03/17 07:10 06/03/17 07:10 06/03/17 07:10 06/03/17 07:10 - Attending Attestation I examined this patient and my medical decision-making was reviewed with the Resident Physician. I agree with the documented findings, disposition and treatment plan as described except to the extent set forth below. 67/M admitted with Afib with RVR Hr now below 80. well controlled. some issues regarding understanding instructions on medications and that is reason he was hospitalized. case discussed with cardiology appointment set up instructions handed over to SHANELL Perez patient is keen to go home. plan home today follow with PCP and cardiology in 1-2 weeks.
--- NOTE | 2017-06-03 15:37 | Electrocardiograph Report ---
[address] [address] Test Date: 2017-06-02 Pat Name: Delon De La Rosa Department: [id number] Room: 2A Gender: M Prepress Specialist: : [id number] Requested By: Brayan Maki Order Number: [id number] Reading MD: Gus Thompson MD Measurements Intervals [place] Rate: 136 P: [place]: 0 QRS: 1 QRSD: 98 T: 9 QT: 282 QTc: 361 Interpretive Statements ATRIAL FLUTTER/TACHYCARDIA WITH RAPID VENTRICULAR RESPONSE Electronically Signed On 06-03-2017 15:35:31 EDT by Gus Thompson MD
[2017-06-03] MEDS ORDERED: *HR* Warfarin 3 MG TABLET PO SCH ×2 (18:00)
[2017-06-03] MEDS ORDERED: Warfarin perPT PO PRN (18:00)
== END 2017-06-03 10:37 | disposition home or self-care (01) | DRG 310 ==
LOC: 2ANU 22:39 → EMEROO 22:39 → 2ANU 06-03 04:09
PROVIDERS: ADMIT Internal Medicine; ATTEND Internal Medicine

== ENCOUNTER 2017-09-15 22:25 | Observation (INO) ==
--- NOTE | 2017-09-15 23:05 | Emergency Department Note ---
Disposition Clinical Impression: Atrial fibrillation with RVR Disposition: Admitted As Inpatient Condition: Undetermined Time of Disposition: 01:34 Arrhythmia/Palpitations HPI - General Chief Complaint: ED Arrhythmia/Palpitations Stated Complaint: Afib Time Seen by Provider: 09/15/17 22:35 Source: patient Mode of arrival: ambulatory Limitations: no limitations Nursing Notes Reviewed: Yes Vital Signs Reviewed: Yes - History of Present Illness HPI Narrative: 67-year-old male with paroxysmal A. fib on warfarin arrives [facility] emergency department with complaint of A. fib with RVR that started 8:30 this evening. The patient noted it medially on pulse oximetry teres at home due to a little shortness of breath. The patient denies any other complaints at this time is resting comfortably in the room. His heart rate is fluctuating between 110 and 140. The patient denies any shortness of breath or chest pain at this time. Denies any other complaints. The patient was recently taken off metoprolol due to bradycardia. The patient has been taking his diltiazem as prescribed. Pt Subjective Complaint: atrial fibrillation Onset (ago): hour(s) (3) Duration: intermittent Severity: mild Arrhythmia History: atrial fibrillation Associated symptoms: Reports: denies other symptoms - Related Data Home Medications Medication Instructions Recorded Confirmed Atorvastatin [Lipitor] 40 mg PO QPM 04/23/17 06/03/17 GlipiZIDE [Glipizide Xl] 5 mg PO QAM 04/23/17 06/03/17 Loratadine [Claritin] 10 mg PO QAM 04/23/17 06/03/17 Metformin HCl [Glucophage] 1,000 mg PO QAM 04/23/17 06/03/17 Multivit-Min/FA/Lycopen/Lutein 1 each PO QAM 04/23/17 06/03/17 [Centrum Silver Tablet] metFORMIN [Glucophage] 500 mg PO QPM 04/23/17 06/03/17 Warfarin [Coumadin] 9 mg PO 1800 06/03/17 06/03/17 Previous Rx's Medication Instructions Recorded Aspirin Enteric Coated [Aspirin EC] 81 mg PO DAILY #30 04/30/17 Digoxin [Lanoxin] 0.125 mg PO DAILY #30 tab 04/30/17 Diltiazem CD (24hr) [Cardizem CD] 240 mg PO DAILY #30 04/30/17 Magnesium Oxide [Mag-Ox] 800 mg PO BID #120 tab 04/30/17 Metoprolol [Lopressor] 75 mg PO BID #90 tab 04/30/17 Allergies Allergy/AdvReac Type Severity Reaction Status Date / Time bee venom protein (honey bee) Allergy Difficulty Verified 09/15/17 22:33 Breathing Penicillins Allergy Rash Verified 09/15/17 22:33 All systems ED: reviewed and negative except as stated. Constitutional: Denies: fever, chills ENT ED: Denies: congestion Cardiovascular: Denies: chest pain Respiratory: Denies: dyspnea Gastrointestinal: Denies: abdominal pain Genitourinary: Denies: urgency, dysuria Musculoskeletal: Denies: back pain Integumentary: Denies: rash Neurological: Denies: headache, numbness Past Medical History - Past Medical History Attestation: Yes The following information was validated with the patient. Source: patient, old records reviewed Medical history: Reports: atrial fibrillation, diabetes, hyperlipidemia, hypertension Surgical history: Reports: herniorrhaphy, orthopedic, other Psychiatric history: Reports: no psych history - Social History Smoking Status: Former smoker Smokeless Tobacco Status: No Alcohol use: Reports: occasionally Drug use: Reports: none Physical Exam - General Limitations: no limitations General appearance: alert, in no apparent distress - Head Head exam: atraumatic, normocephalic, normal inspection - Eye Eye exam: Present: normal appearance - ENT ENT exam: normal exam, normal oropharynx, mucous membranes moist - Neck Neck exam: Present: normal inspection, full ROM, trachea midline - Chest Chest inspection: Present: normal inspection, symmetric chest wall rise - Respiratory Respiratory exam: Present: normal lung sounds bilaterally - Cardiovascular Cardiovascular exam: Present: tachycardia, irregular rhythm, normal heart sounds - Abdominal Exam Abdominal exam: Present: soft, Non-Tender. Absent: tenderness, distention, guarding, rebound, rigidity - Extremities Exam Extremities exam: Present: normal inspection, full ROM. Absent: tenderness, pedal edema Course - Reevaluation(s) Reevaluation #1: The patient remains in atrial fibrillation. At this point with the patient's alterations of his medications I feel as though it would be the best idea to admit the patient to the hospitalist service at this time. The patient was made aware and agrees to plan. No further questions or concerns. We will obtain labs at this time. Time: 00:50 Vital Signs Temperature 97.5 F L 09/15/17 22:27 Pulse Rate 129 09/15/17 22:27 Respiratory Rate 16 09/15/17 22:27 Blood Pressure 137/76 09/15/17 22:27 O2 Sat by Pulse Oximetry 97 09/15/17 22:27 Temperature 98.1 F 09/16/17 03:49 Pulse Rate 85 09/16/17 03:49 Respiratory Rate 18 09/16/17 03:49 Blood Pressure 122/82 09/16/17 03:49 O2 Sat by Pulse Oximetry 96 09/16/17 03:49 Oxygen Delivery Oxygen Delivery Room Air Arrhythmia/Palpitations - MDM Narrative Medical decision making narrative: Accepted by Dr. Townsend. - Lab Data Lab results reviewed: Yes I reviewed the patient's lab results. Result diagrams: 09/16/17 00:58 09/16/17 00:58 Lab Results 09/16/17 09/16/17 09/16/17 Range/Units 00:58 00:58 00:58 WBC 6.7 (4.3-11.1) K/mcL RBC 5.23 (4.19-5.50) M/mcL Hgb 15.3 (12.9-16.9) g/dL Hct 45.3 (37.5-50.1) % MCV 86.6 (83.0-100.0) fL MCH 29.3 (28.0-33.3) pg MCHC 33.8 (31.6-35.5) g/dL RDW 15.0 H (11.5-14.5) % Plt Count 158 (140-400) K/mcL MPV 9.6 (9.4-12.4) fL Immature Gran % 0.1 (0-4) % Seg Neutrophils % 51.6 % Lymphocytes % 34.2 % Monocytes % 7.4 % Eosinophils % 5.8 % Basophils % 0.9 % Neutrophils # 3.5 (1.6-8.9) K/mcL Lymphocytes # 2.3 (0.6-4.6) K/mcL Monocytes # 0.5 (0.0-1.3) K/mcL Eosinophils # 0.4 (0.0-0.6) K/mcL Basophils # 0.1 (0.0-0.2) K/mcL Immature Plt Fraction 2.7 (1.1-6.1) % PT (9.4-12.1) Seconds INR Sodium 140 (136-145) mEq/L Potassium 4.1 (3.5-4.5) mEq/L Chloride 108 (98-109) mEq/L Carbon Dioxide 21 (19-29) mEq/L BUN 29 H (8-26) mg/dL Creatinine 0.81 (0.72-1.25) mg/dL Est GFR ( Amer) > 60 (> 60) Est GFR (Non-Af Amer) > 60 (> 60) BUN/Creatinine Ratio 36 H (6-26) Glucose 86 (70-99) mg/dL Calculated Osmolality 295 (280-300) Calcium 9.4 (8.6-10.8) mg/dL Troponin I 0.00 (0-0.03) ng/mL 09/16/17 Range/Units 00:58 WBC (4.3-11.1) K/mcL RBC (4.19-5.50) M/mcL Hgb (12.9-16.9) g/dL Hct (37.5-50.1) % MCV (83.0-100.0) fL MCH (28.0-33.3) pg MCHC (31.6-35.5) g/dL RDW (11.5-14.5) % Plt Count (140-400) K/mcL MPV (9.4-12.4) fL Immature Gran % (0-4) % Seg Neutrophils % % Lymphocytes % % Monocytes % % Eosinophils % % Basophils % % Neutrophils # (1.6-8.9) K/mcL Lymphocytes # (0.6-4.6) K/mcL Monocytes # (0.0-1.3) K/mcL Eosinophils # (0.0-0.6) K/mcL Basophils # (0.0-0.2) K/mcL Immature Plt Fraction (1.1-6.1) % PT 38.9 H (9.4-12.1) Seconds INR 3.5 Sodium (136-145) mEq/L Potassium (3.5-4.5) mEq/L Chloride (98-109) mEq/L Carbon Dioxide (19-29) mEq/L BUN (8-26) mg/dL Creatinine (0.72-1.25) mg/dL Est GFR ( Amer) (> 60) Est GFR (Non-Af Amer) (> 60) BUN/Creatinine Ratio (6-26) Glucose (70-99) mg/dL Calculated Osmolality (280-300) Calcium (8.6-10.8) mg/dL Troponin I (0-0.03) ng/mL - EKG Data EKG attestation: Yes I reviewed and interpreted this EKG. EKG results narrative: Heart rate 1 53 bpm. QRS 108 ms. QTC 370 ms. A. fib with RVR. No ST elevation or ST depression noted. EKG 2: 2326: Heart rate 86. QRS 106. QTC 46. Atrial fibrillation. No ST elevation or ST depression. Attestation Statement - Attestation Attestation: Dr. Neville note: Patient was seen in conjunction with resident Dr. Boudreaux; please see his charting for complete documentation. I spent [id number] time with the patient and agree with the patient's treatment and disposition. History of atrial fibrillation which she only picks up on clinically when he test his heart rate every day. He has no chest pain, no shortness of breath no palpitations. Diagnosis paroxysmal atrial fibrillations the last few. Persistently in atrial fibrillation with intermittent tachycardia despite ER treatment which we were forced to go slower on due to the patient's low bp
[2017-09-16] MEDS ORDERED: 0.9 % Sodium Chloride 1,000 ML IVC ONE (00:38)
[2017-09-16 01:07] LABS: Basophils # 0.1 K/mcL (0.0-0.2); Basophils % 0.9 %; Eosinophils # 0.4 K/mcL (0.0-0.6); Eosinophils % 5.8 %; Hematocrit 45.3 % (37.5-50.1); Hemoglobin 15.3 g/dL (12.9-16.9); Immature Granulocytes % 0.1 % (0-4); Immature Platelets 2.7 % (1.1-6.1); Lymphocytes # 2.3 K/mcL (0.6-4.6); Lymphocytes % 34.2 %; Mean Corpuscular HGB Conc 33.8 g/dL (31.6-35.5); Mean Corpuscular Hemoglobin 29.3 pg (28.0-33.3); Mean Corpuscular Volume 86.6 fL (83.0-100.0); Mean Platelet Volume 9.6 fL (9.4-12.4); Monocytes # 0.5 K/mcL (0.0-1.3); Monocytes % 7.4 %; Neutrophils # 3.5 K/mcL (1.6-8.9); Platelet Count 158 K/mcL (140-400); Red Blood Count 5.23 M/mcL (4.19-5.50); Segmented Neutrophils % 51.6 %
[2017-09-16 01:15] LABS: INR 3.5; Prothrombin Time 38.9 Seconds (9.4-12.1)
[2017-09-16 01:19] LABS: BUN/Creatinine Ratio 36 (6-26); Blood Urea Nitrogen 29 mg/dL (8-26); Calcium 9.4 mg/dL (8.6-10.8); Carbon Dioxide 21 mEq/L (19-29); Chloride 108 mEq/L (98-109); Glucose 86 mg/dL (70-99); Osmolality,Calculated 295 (280-300); Potassium 4.1 mEq/L (3.5-4.5); Sodium 140 mEq/L (136-145); eGFR For African Americans > 60 (> 60); eGFR For Non-African Americans > 60 (> 60)
[2017-09-16] MEDS ORDERED: Naloxone 0.4 MG/ML INJ IVP PRN (05:03)
[2017-09-16] MEDS ORDERED: *HR* Morphine 2 MG/ML SYRINGE IVP PRN (05:03)
[2017-09-16] MEDS ORDERED: Acetaminophen 325 MG TABLET PO PRN (05:03)
[2017-09-16] MEDS ORDERED: *HR* Dextrose 50 % in Water (Syg) 50 ML SYRINGE IVP PRN (05:03)
[2017-09-16] MEDS ORDERED: D5% in Water 1,000 ML IVC PRN (05:03)
[2017-09-16] MEDS ORDERED: Dextrose Gel 15 GM PO PRN ×2 (05:03)
--- NOTE | 2017-09-16 05:13 | Internal Med History&Physical ---
Date of Encounter: 09/16/17 Time of Encounter: 05:13 Assessment and Plan (1) Atrial fibrillation with RVR Current visit: Yes Status: Acute 1. Patient currently with good HR control. 2. Will resume home meds as appropriate. 3. Will cycle troponins, EKG's 4. Consult cardiology for guidance with medication changes and/or consideration of pacer in the future for he possibility of SSS. 5. Patient on Couamdin for chronic anti-coagulation. Continue home dose with close monitoring of PT/INR. (2) Type 2 diabetes mellitus Current visit: No Status: Chronic 1. Hold home meds. 2. Monitor glucose and will use SSI with adjustments as needed. Qualifiers: Diabetes mellitus complication status: without complication Diabetes mellitus jail insulin use: without jail use Qualified Code(s): E11.9 - Type 2 diabetes mellitus without complications (3) DVT prophylaxis Current visit: No Status: Acute 1. Continue Coumadin -- currently therapeutic. 2. Daily PT/INR, Internal Medicine - H&P: HPI Chief complaint: Racing heartbeats/palpitations Admitted From: Emergency Dept Plans for Post Hospital Care: Home History of present illness: Mr. De La Rosa is a 67 year old male who presents to hospital with complaints of racing heartbeat and palpitations. He was sitting at home on his recliner earlier tonight when he checked his pulse with his home pulse ox meter. He noticed his heart rate running between 150-160 bpm. At the time, he was having no symptoms before he checked his pulse rate., He later felt some possible palpitations, and so he came to the ER. Work-up in the ER revealed atrial fibrillation with rapid ventricular response. He was given a dose of IV Cardizem and achieved good rate control. He was then admitted to hospitalist service for further workup and care. Upon my assessment of the patient, he is feeling well and has no complaints. He denies any chest pain, palpitations, shortness of breath, or diaphoresis. He was recently diagnosed with atrial fibrillation in April of this year. Since then, he has had several medication changes due to bradycardia. His Digoxin was initially discontinued due to bradycardia. He then had his beta cary dose reduced due to bradycardia. He now presents with uncontrolled atrial fibrillation. He has not had cardioversion. He did have a stress test recently which was negative. He states that he is often in a normal rhythm, but he has had recurrent bouts of atrial fibrillation. Recent thyroid testing was also normal. Past Med Surg Social Fam HX - Past Medical History Attestation: Yes The following information was validated with the patient. Source: patient, old records reviewed Medical history: atrial fibrillation, diabetes, hyperlipidemia, hypertension Psychiatric history: no psych history - Past Surgical History Surgical History: herniorrhaphy, orthopedic, other - Social History Smoking Status: Former smoker Smokeless Tobacco Status: No Alcohol use: occasionally Drug use: none Current living situation: Home, With Family Activity Level: Independent ambulation Recent Out of Country Travel Within the Last 8 Weeks: No - Family History Father Adopted: No Family Member Ethnicity: Non- Living Status: Hx Family Cardiac Disorders: Yes Hx Family Respiratory Disorders: No Hx Family Cancer: Yes (SKIN CANCER) Hx Family GI Disorders: No Hx Family Endocrine Disorder: No Hx Family Neuromuscular Disorders: Yes (POLIO) Hx Family Neurologic Disorders: No Hx Family HEENT Disorders: Yes (MACULAR DEGENERATION) Hx Family Autoimmune Disorders: No Mother Adopted: No Family Member Ethnicity: Non- Twin of Family Member: Yes Living Status: Hx Family Cardiac Disorders: Yes (A FIB) Hx Family Respiratory Disorders: No Hx Family Cancer: No Hx Family GI Disorders: Yes (CONSTIPATION) Hx Family Endocrine Disorder: No Hx Family Neuromuscular Disorders: No Hx Family Neurologic Disorders: No Hx Family HEENT Disorders: Yes (GLAUCOMA) Hx Family Autoimmune Disorders: No Internal Medicine - H&P: Meds Atorvastatin [Lipitor] 40 mg PO QPM 04/23/17 [History] GlipiZIDE [Glipizide Xl] 5 mg PO QAM 04/23/17 [History] Metformin HCl [Glucophage] 1,000 mg PO QAM 04/23/17 [History] Multivit-Min/FA/Lycopen/Lutein [Centrum Silver Tablet] 1 each PO QAM 04/23/17 [ History] metFORMIN [Glucophage] 500 mg PO QPM 04/23/17 [History] Aspirin Enteric Coated [Aspirin EC] 81 mg PO DAILY #30 04/30/17 [Rx] Diltiazem CD (24hr) [Cardizem CD] 240 mg PO DAILY #30 04/30/17 [Rx] Warfarin [Coumadin] 9 mg PO 1800 06/03/17 [History] Metoprolol [Lopressor] 50 mg PO BID 09/16/17 [History] 3 Allergy/AdvReac Type Severity Reaction Status Date / Time bee venom protein (honey bee) Allergy Difficulty Verified 09/15/17 22:33 Breathing Penicillins Allergy Rash Verified 09/15/17 22:33 - Constitutional Constitutional: no chills, no fever(s), no night sweats - EENT Eyes: no blurry vision, no change in vision Ears: no ear pain, no tinnitus Nose, mouth and throat: no nasal congestion, no nasal discharge, no sinus pressure, no sore throat - Cardiovascular Cardiovascular ROS IM: dyspnea, irregular heart rhythm, palpitations, no chest pain, no diaphoresis, no edema, no lightheadedness, no orthopnea, no paroxysmal nocturnal dyspnea, no syncope - Respiratory Respiratory: no cough, no hemoptysis, no wheezing, no chest congestion, no excessive phlegm production, no change in phlegm color - Gastrointestinal Gastrointestinal: no abdominal pain, no diarrhea, no nausea, no vomiting - Genitourinary Genitourinary ROS male: no dysuria, no flank pain, no hematuria - Musculoskeletal Musculoskeletal ROS IM: no arthralgias, no back pain - Integumentary Integumentary IM: no rash, no jaundice - Neurological Neurological ROS: no disequilibrium, no dizziness, no focal weakness, no frequent falls, no headache(s) - Psychiatric Psychiatric: no anxiety, no depression - Endocrine Endocrine IM: no cold intolerance, no heat intolerance, no polydipsia, no polyuria - Hematologic/Lymphatic Hematologic/Lymphatic: easy bruising - Allergic/Immunologic Allergic/Immunologic: no GI upset with certain foods - Constitutional Vitals: Temp Pulse Resp BP Pulse Ox 98.1 F 85 18 122/82 96 09/16/17 03:49 09/16/17 03:49 09/16/17 03:49 09/16/17 03:49 09/16/17 03:49 General appearance: Present: cooperative, A&O X 3, pleasant, no acute distress, answers questions appropriately - Head Head exam: Present: atraumatic - Eye Eye exam: Present: EOMI, normal appearance, PERRL. Absent: scleral icterus Pupils: Present: normal accommodation - ENT ENT exam: Present: mucous membranes dry, normal exam - Neck Neck exam general surgery: Present: full ROM, supple. Absent: tenderness, thyromegaly - Respiratory Respiratory exam: Present: CTAB. Absent: chest wall tenderness, rales, respiratory distress, rhonchi, wheezes - Cardiovascular Cardiovascular exam: Present: irregular rhythm, +S1. Absent: diastolic murmur, JVD, +S2, systolic murmur - GI/Abdominal GI/Abdominal exam: Present: normal bowel sounds, soft. Absent: hepatomegaly, mass, splenomegaly, tenderness - Extremities Exam Extremities exam: Present: full ROM. Absent: calf tenderness, pedal edema, tenderness, warm Additional comments: chronic venous stasis changes in both lower legs - Back Exam Back exam: Absent: CVA tenderness (L), CVA tenderness (R) - Neurological Exam Neurological exam: Present: alert, CN II-XII intact, oriented X3, no focal deficits, strengths equal and symetr throughout - Psychiatric Psychiatric exam: Present: normal affect, normal mood - Skin Skin exam: Present: dry, warm. Absent: rash Internal Med - H&P Results - Labs CBC & Chem 7: 09/16/17 00:58 09/16/17 00:58 - EKG Data -: EKG Interpreted by Myself - EKG Data Prior EKG available for review: yes When compared to previous EKG: there are significant changes EKG comments: 09/16/17 05:29 Atrial fibrillation w RVR - VTE Reasons for not Prescribing Prophylaxis: Not indicated-Anticoagulated or INR therapeutic
[2017-09-16 06:05] LABS: INR 3.8; Prothrombin Time 42.4 Seconds (9.4-12.1)
[2017-09-16 06:19] LABS: Alanine Aminotransferase 27 Units/L (0-55); Albumin 3.4 g/dL (3.5-5.0); Alkaline Phosphatase 49 Units/L (38-126); Aspartate Amino Transferase 23 Units/L (5-34); BUN/Creatinine Ratio 29 (6-26); Bilirubin,Total 0.8 mg/dL (0.2-1.2); Blood Urea Nitrogen 24 mg/dL (8-26); Calcium 8.8 mg/dL (8.6-10.8); Carbon Dioxide 22 mEq/L (19-29); Chloride 110 mEq/L (98-109); Globulin 3.3 g/dL (2.4-3.5); Glucose 96 mg/dL (70-99); Magnesium 1.8 mg/dL (1.6-2.6); Osmolality,Calculated 296 (280-300); Potassium 3.9 mEq/L (3.5-4.5); Sodium 141 mEq/L (136-145); Total Protein 6.7 g/dL (6.0-8.3); eGFR For African Americans > 60 (> 60); eGFR For Non-African Americans > 60 (> 60)
[2017-09-16] MEDS: Diltiazem CD (24hr) 240 MG CAPSULE PO SCH (09:20)
[2017-09-16] MEDS: Insulin LISPRO 300 UNITS/3 ML VIAL SQ SCH ×3 (09:20→16:29)
[2017-09-16] MEDS: Aspirin Enteric Coated 81 MG Tablet PO SCH (09:20)
[2017-09-16] MEDS: Multivit/Ca/Min/Fe/FA 1 TAB TABLET PO SCH (09:20)
--- NOTE | 2017-09-16 14:01 | Cardiology Consult Note ---
<Chris He Michael - Last Filed: 09/16/17 15:43> Date of Encounter: 09/16/17 Time of Encounter: 13:54 Assessment and Plan (1) Atrial fibrillation with RVR Current Visit: Yes Status: Acute Presented with recurrent afib with RVR. Now rate controlled on cardizem and lopressor. This is his third admission for atrial fibrillation. Discussed with Dr. Dany Nolan- He is recommended to start Rhythmol 150 mg q 8 HR. He will required to be monitored for the first five doses. Check qam EKG. TTE 05/2017- EF LVEF 60%. Normal left ventricular size and systolic function. There is evidence of mild diastolic dysfunction of the left ventricle. Normal right ventricular size and function. Mild aortic regurgitation. No pulmonary hypertension by TR gradient. TSH 3.832 -04/2017. Currently on coumadin and INR therapeutic to supratherapeutic over the last month. Recommend pharmacy to dose coumadin. Discussion w patient/family: The assessment and plan as outlined above was discussed with the patient and/or family members who expressed understanding and agreement. All questions were answered. Thank you for involving us in the care of your patient. Please call with any questions. History of Present Illness Consult date: 09/16/17 Requesting physician: Dino Bolaños Consult reason: Afib with RVR Chief complaint: elevated heart rates History of present illness: Mr. De La Rosa is a 67 year old male with a history of afib/aflutter on coumadin, HTN, HLD, DM type II who presented with the c/o elevated heart rates in the 130- 140 seen on a home pulse ox. He was found to be in atrial fibrillation with RVR. He denies any symptoms. He was diagnosed with atrial fibrillation in April 2017. He initially converted to NSR on his own after being started on cardizem 240 mg daily, lopressor 75 mg BID, and digoxin. His digoxin was discontinued and lopressor decreased in July due to bradycardia with HR in the 30-40's. Previous cardiac testing: TTE 05/2017 showed preserved EF. Mild AR. Pharmacologic stress test 06/2017 was negative for ischemia. 24 HR Holter monitor 06/2017- avg HR 47 bpm sinus bradycardia. Min HR 36 BPM at 0138. Peak HR 76 BPM. No afib seen. Past Med Surg Social Fam HX - Past Medical History Medical history: atrial fibrillation, diabetes, hyperlipidemia, hypertension Psychiatric history: no psych history - Past Surgical History Surgical History: herniorrhaphy, orthopedic, other - Social History Smoking Status: Former smoker Smokeless Tobacco Status: No Alcohol use: occasionally Drug use: none - Family History Father Adopted: No Family Member Ethnicity: Non- Living Status: Hx Family Cardiac Disorders: Yes Hx Family Respiratory Disorders: No Hx Family Cancer: Yes (SKIN CANCER) Hx Family GI Disorders: No Hx Family Endocrine Disorder: No Hx Family Neuromuscular Disorders: Yes (POLIO) Hx Family Neurologic Disorders: No Hx Family HEENT Disorders: Yes (MACULAR DEGENERATION) Hx Family Autoimmune Disorders: No Mother Adopted: No Family Member Ethnicity: Non- Twin of Family Member: Yes Living Status: Hx Family Cardiac Disorders: Yes (A FIB) Hx Family Respiratory Disorders: No Hx Family Cancer: No Hx Family GI Disorders: Yes (CONSTIPATION) Hx Family Endocrine Disorder: No Hx Family Neuromuscular Disorders: No Hx Family Neurologic Disorders: No Hx Family HEENT Disorders: Yes (GLAUCOMA) Hx Family Autoimmune Disorders: No Medications and Allergies Atorvastatin [Lipitor] 40 mg PO QPM 04/23/17 [History] GlipiZIDE [Glipizide Xl] 5 mg PO QAM 04/23/17 [History] Metformin HCl [Glucophage] 1,000 mg PO QAM 04/23/17 [History] Multivit-Min/FA/Lycopen/Lutein [Centrum Silver Tablet] 1 each PO QAM 04/23/17 [ History] metFORMIN [Glucophage] 500 mg PO QPM 04/23/17 [History] Aspirin Enteric Coated [Aspirin EC] 81 mg PO DAILY #30 04/30/17 [Rx] Diltiazem CD (24hr) [Cardizem CD] 240 mg PO DAILY #30 04/30/17 [Rx] Warfarin [Coumadin] 9 mg PO TH 06/03/17 [History] Metoprolol [Lopressor] 75 mg PO BID 09/16/17 [History] Warfarin [Coumadin] 6 mg PO SUMOTUWEFRSA 09/16/17 [History] 3 Allergy/AdvReac Type Severity Reaction Status Date / Time bee venom protein (honey bee) Allergy Difficulty Verified 09/15/17 22:33 Breathing Penicillins Allergy Rash Verified 09/15/17 22:33 All Systems Review: A 10-system review of systems was performed and is negative for pertinent findings except as documented above in the HPI. Physical Examination Vital Signs, Last 4 Hours Temp Pulse Resp BP Pulse Ox 09/16/17 11:39 97.8 F 76 16 112/77 96 General: Conversant, No Apparent Distress HEENT: Atraumatic, Normocephaly, Mucus Membranes Moist Neck: No JVD, Normal carotid pulses Cardiac: Other (Irregularly irregular) Lungs: Normal Breath Sounds, No Wheeze, Rales, Rhonchi Neuro: Alert and responsive, No focal deficits noted Abdomen: Soft, Non-Tender Skin: No rashes noted on visualized skin Musculoskeletal: No Chest Wall Tenderness Extremities: No Clubbing, No Cyanosis, No Edema, Normal Pulses Results 09/16/17 00:58 09/16/17 05:35 Lab Results 09/16/17 09/16/17 09/16/17 05:35 05:35 05:35 INR 3.8 Sodium 141 Potassium 3.9 Chloride 110 H Carbon Dioxide 22 BUN 24 Creatinine 0.82 Glucose 96 Calcium 8.8 Magnesium 1.8 Total Bilirubin 0.8 AST 23 ALT 27 Alkaline Phosphatase 49 Troponin I 0.01 09/16/17 10:51 INR Sodium Potassium Chloride Carbon Dioxide BUN Creatinine Glucose Calcium Magnesium Total Bilirubin AST ALT Alkaline Phosphatase Troponin I 0.00 - Imaging and Cardiology Stress Test: report reviewed Echo: report reviewed - EKG Interpretation EKG results cardiology: personally reviewed Consult Discharge Plan - Plan Referrals: Yan Villavicencio, [Primary Care Provider] - <Dany Nolan - Last Filed: 09/16/17 17:01> Date of Encounter: 09/16/17 - Attending Attestation I have personally performed a face to face evaluation on this patient. I have reviewed and agree with the care plan. History and Exam by me shows: Known PAF not previously on antiarrythmic. Now with recurrent episode. Will start rythmol and monitor heart rate, previous history of bradycardia. Assessment and Plan Discussion w patient/family: The assessment and plan as outlined above was discussed with the patient and/or family members who expressed understanding and agreement. All questions were answered. Thank you for involving us in the care of your patient. Please call with any questions. History of Present Illness History of present illness: Mr. De La Rosa is a 67 year old male All Systems Review: A 10-system review of systems was performed and is negative for pertinent findings except as documented above in the HPI. Physical Examination Vital Signs, Last 4 Hours Temp Pulse Resp BP Pulse Ox 09/16/17 15:52 97.7 F 81 14 95/61 95 Results 09/16/17 00:58 09/16/17 05:35 Lab Results 09/16/17 09/16/17 09/16/17 05:35 05:35 05:35 INR 3.8 Sodium 141 Potassium 3.9 Chloride 110 H Carbon Dioxide 22 BUN 24 Creatinine 0.82 Glucose 96 Calcium 8.8 Magnesium 1.8 Total Bilirubin 0.8 AST 23 ALT 27 Alkaline Phosphatase 49 Troponin I 0.01 09/16/17 10:51 INR Sodium Potassium Chloride Carbon Dioxide BUN Creatinine Glucose Calcium Magnesium Total Bilirubin AST ALT Alkaline Phosphatase Troponin I 0.00
[2017-09-16] MEDS ORDERED: *HR* Warfarin 3 MG TABLET PO SCH (18:00)
[2017-09-16] MEDS ORDERED: Warfarin perPT PO PRN (18:00)
[2017-09-17 06:03] LABS: INR 3.1
[2017-09-17] MEDS: Multivit/Ca/Min/Fe/FA 1 TAB TABLET PO SCH (09:03)
[2017-09-17] MEDS: Aspirin Enteric Coated 81 MG Tablet PO SCH (09:03)
[2017-09-17] MEDS: Insulin LISPRO 300 UNITS/3 ML VIAL SQ SCH ×3 (09:05→17:15)
--- NOTE | 2017-09-17 11:45 | Cardiology Progress Note ---
Date of Encounter: 09/17/17 Time of Encounter: 11:45 Assessment and Plan (1) Atrial fibrillation with RVR Current Visit: Yes Status: Acute Presented with recurrent afib with RVR. Converted to NSR after starting Rhythmol last night. Continue rhythmol. Hold lopressor for nocturnal bradycardia HR in the 40's. HR currently 51. EKG 09/17/17- SB, HR 51, QT/QTc 451/426, QRS 108. TTE 05/2017- EF LVEF 60%. Normal left ventricular size and systolic function. There is evidence of mild diastolic dysfunction of the left ventricle. Normal right ventricular size and function. Mild aortic regurgitation. No pulmonary hypertension by TR gradient. TSH 3.832 -04/2017. Currently on coumadin and INR therapeutic to supratherapeutic over the last month. Recommend pharmacy to dose coumadin. Anticipate d/c in am after AM dose of rhythmol. Discussion w patient/family: The assessment and plan as outlined above was discussed with the patient and/or family members who expressed understanding and agreement. All questions were answered. Thank you for involving us in the care of your patient. Please call with any questions. Subjective Principal diagnosis: Atrial fibrillation Interval history: Mr. Browne is resting comfortably. Converted to NSR this morning. No new complaints. Objective Vital Signs, Last 4 Hours Temp Pulse Resp BP Pulse Ox 09/17/17 07:55 97.3 F L 51 18 120/74 95 General: Conversant, No Apparent Distress HEENT: Atraumatic, Normocephaly, Mucus Membranes Moist Neck: No JVD, Normal carotid pulses Cardiac: Reg Rate and Rhythm, Normal S1 and S2, No Murmur Lungs: Normal Breath Sounds, No Wheeze, Rales, Rhonchi Neuro: Alert and responsive, No focal deficits noted Abdomen: Soft, Non-Tender Skin: No rashes noted on visualized skin Musculoskeletal: No Chest Wall Tenderness Extremities: No Clubbing, No Cyanosis, No Edema, Normal Pulses Results 09/16/17 00:58 09/16/17 05:35 Lab Results 09/16/17 09/17/17 17:52 05:33 INR 3.1 Troponin I 0.00 - EKG Interpretation EKG results cardiology: personally reviewed - VTE Reasons for not Prescribing Prophylaxis: Not indicated-Anticoagulated or INR therapeutic Consult Discharge Plan - Plan Referrals: Yan Villavicencio DO [Primary Care Provider] -
--- NOTE | 2017-09-17 13:28 | Internal Med Progress Note ---
Date of Encounter: 09/17/17 Time of Encounter: 13:25 - Assessment and plan (1) Atrial fibrillation with RVR Current Visit: Yes Status: Acute Assessment and plan: Patient has had multiple previous admissions with atrial fibrillation, with difficulty achieving appropriate HR control. Cardiology has been consulted, started on Rhythmol therapy, s/p 3 doses, tolerating well; noted to have bradycardia last night with HR<40 and beta cary and CCB have been held this morning; Continue long-term anticoagulation with Coumadin, INR 3.1 today. Anticipate discharge in am after 5th dose of Rhythmol. (2) Essential hypertension Current Visit: Yes Status: Chronic (3) Type 2 diabetes mellitus Current Visit: Yes Status: Chronic Assessment and plan: Blood sugars noted to be well controlled. Continue Accu-Chek blood glucose monitoring with sliding scale insulin. Diabetic diet. Qualifiers: Diabetes mellitus complication status: without complication Diabetes mellitus superintendent terminal insulin use: without superintendent terminal use Qualified Code(s): E11.9 - Type 2 diabetes mellitus without complications (4) Hyperlipidemia Current Visit: Yes Status: Chronic Qualifiers: Hyperlipidemia type: pure hypercholesterolemia Qualified Code(s): E78.00 - Pure hypercholesterolemia, unspecified; E78.0 - Pure hypercholesterolemia - Subjective Interval history: Feels well, no chest pain, shortness of breath; no lethargy, weakness, dizziness ; tolerates oral diet; has been tolerating Rhythmol well; - Constitutional Vitals: Temp Pulse Resp BP Pulse Ox 97.8 F 79 18 125/79 97 09/17/17 11:15 09/17/17 11:15 09/17/17 11:15 09/17/17 11:15 09/17/17 11:15 General appearance: Present: cooperative, A&O X 3, pleasant, no acute distress, answers questions appropriately - Respiratory Respiratory exam: Present: CTAB. Absent: accessory muscle use, rales, rhonchi, wheezes - Cardiovascular Cardiovascular exam: Present: RRR, +S1, +S2. Absent: diastolic murmur, gallop, rubs, systolic murmur Internal Medicine: Result - Labs CBC & Chem 7: 09/16/17 00:58 09/16/17 05:35 Labs: Cardiac Enzymes 09/16/17 Range/Units 17:52 Troponin I 0.00 (0-0.03) ng/mL - ABG Interpretation ABG results: PT/INR, D-dimer PT 34.0 Seconds (9.4-12.1) H 09/17/17 05:33 - VTE Reasons for not Prescribing Prophylaxis: Not indicated-Anticoagulated or INR therapeutic Consult Discharge Plan - Plan Referrals: Yan Villavicencio DO [Primary Care Provider] -
--- NOTE | 2017-09-17 16:34 | Electrocardiograph Report ---
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
--- NOTE | 2017-09-17 16:35 | Electrocardiograph Report ---
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
--- NOTE | 2017-09-17 17:15 | Internal Med Progress Note ---
Date of Encounter: 09/16/17 Time of Encounter: 14:00 - Assessment and plan (1) Atrial fibrillation with RVR Current Visit: Yes Status: Acute Assessment and plan: Patient has had multiple previous admissions with atrial fibrillation, with difficulty achieving appropriate HR control. Continue oral beta cary and calcium channel cary. Heart rate currently well controlled. Will follow cardiology consult. Continue long-term anticoagulation with Coumadin, INR 3.8 today. (2) Essential hypertension Current Visit: Yes Status: Chronic Assessment and plan: Blood pressure noted to be well controlled. Continue home medications. (3) Type 2 diabetes mellitus Current Visit: Yes Status: Chronic Assessment and plan: Blood sugars noted to be well controlled. Continue Accu-Chek blood glucose monitoring with sliding scale insulin. Diabetic diet. Qualifiers: Diabetes mellitus complication status: without complication Diabetes mellitus ignition specialist insulin use: without ignition specialist use Qualified Code(s): E11.9 - Type 2 diabetes mellitus without complications (4) Hyperlipidemia Current Visit: Yes Status: Chronic Qualifiers: Hyperlipidemia type: pure hypercholesterolemia Qualified Code(s): E78.00 - Pure hypercholesterolemia, unspecified; E78.0 - Pure hypercholesterolemia - Subjective Interval history: Reports no complaints; no palpitations, chest discomfort, shortness of breath; tolerates diet; - Constitutional Vitals: Temp Pulse Resp BP Pulse Ox 98.5 F 56 16 127/71 93 09/17/17 14:56 09/17/17 14:56 09/17/17 14:56 09/17/17 14:56 09/17/17 14:56 General appearance: Present: cooperative, A&O X 3, pleasant, no acute distress, answers questions appropriately - Respiratory Respiratory exam: Present: CTAB. Absent: accessory muscle use, rales, rhonchi, wheezes - Cardiovascular Cardiovascular exam: Present: irregular rhythm, +S1, +S2. Absent: diastolic murmur, gallop, rubs, systolic murmur - GI/Abdominal GI/Abdominal exam: Present: normal bowel sounds, soft, no peritoneal signs. Absent: distended, tenderness - Extremities Exam Extremities exam: Present: full ROM, pedal edema, warm, radial pulses palpable and symmetrical. Absent: calf tenderness, cyanotic Internal Medicine: Result - Labs CBC & Chem 7: 09/16/17 00:58 09/16/17 05:35 Labs: Cardiac Enzymes 09/16/17 Range/Units 17:52 Troponin I 0.00 (0-0.03) ng/mL - ABG Interpretation ABG results: PT/INR, D-dimer PT 34.0 Seconds (9.4-12.1) H 09/17/17 05:33 - VTE Reasons for not Prescribing Prophylaxis: Not indicated-Anticoagulated or INR therapeutic Consult Discharge Plan - Plan Referrals: Yan Villavicencio DO [Primary Care Provider] -
[2017-09-17] MEDS: Diltiazem CD (24hr) 240 MG CAPSULE PO SCH (17:23)
--- NOTE | 2017-09-17 17:38 | Electrocardiograph Report ---
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
--- NOTE | 2017-09-17 17:41 | Electrocardiograph Report ---
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
[2017-09-17] MEDS ORDERED: *HR* Warfarin 7.5 MG TABLET PO ONE (18:00)
[2017-09-18 05:17] LABS: INR 2.1; Prothrombin Time 22.9 Seconds (9.4-12.1)
--- NOTE | 2017-09-18 08:04 | Cardiology Progress Note ---
Date of Encounter: 09/18/17 Time of Encounter: 08:00 Assessment and Plan (1) Atrial fibrillation with RVR Current Visit: Yes Status: Acute Presented with recurrent afib with RVR. Converted to NSR after starting Rhythmol. Continue rhythmol. Avg HR in 24 hour telemetry was 54 bpm. min HR 46. One small run afib rate control seen. Lopressor and cardizem stopped due to bradycardia. EKG 09/17/17- SB, HR 51, QT/QTc 451/426, QRS 108. This morning EKG pending. TTE 05/2017- EF LVEF 60%. Normal left ventricular size and systolic function. There is evidence of mild diastolic dysfunction of the left ventricle. Normal right ventricular size and function. Mild aortic regurgitation. No pulmonary hypertension by TR gradient. TSH 3.832 -04/2017. Currently on coumadin and INR therapeutic. Recommend INR in 5 days. Ok with d/c today from cardiology standpoint if EKG is ok after his 5th dose this morning. Rhythmol RX sent to [facility] pharmacy in [place]. Out-patient f/u will be coordinated with Dr. Mohan. Discussion w patient/family: The assessment and plan as outlined above was discussed with the patient and/or family members who expressed understanding and agreement. All questions were answered. Thank you for involving us in the care of your patient. Please call with any questions. Subjective Principal diagnosis: Atrial fibrillation Interval history: Mr. Browne is resting comfortably. No new complaints. Objective Vital Signs, Last 4 Hours Temp Pulse Resp BP Pulse Ox 09/18/17 04:06 97.4 F L 56 16 129/77 96 General: Conversant, No Apparent Distress HEENT: Atraumatic, Normocephaly, Mucus Membranes Moist Neck: No JVD, Normal carotid pulses Cardiac: Reg Rate and Rhythm, Normal S1 and S2, No Murmur Lungs: Normal Breath Sounds, No Wheeze, Rales, Rhonchi Neuro: Alert and responsive, No focal deficits noted Abdomen: Soft, Non-Tender Skin: No rashes noted on visualized skin Musculoskeletal: No Chest Wall Tenderness Extremities: No Clubbing, No Cyanosis, No Edema, Normal Pulses Results 09/16/17 00:58 09/16/17 05:35 Lab Results 09/18/17 05:01 INR 2.1 - EKG Interpretation EKG results cardiology: personally reviewed - VTE Reasons for not Prescribing Prophylaxis: Not indicated-Anticoagulated or INR therapeutic Consult Discharge Plan - Plan Referrals: Yan Villavicencio DO [Primary Care Provider] - Prescriptions: Propafenone [Rhythmol] 150 mg PO Q8HR #60 tablet
[2017-09-18] MEDS: Insulin LISPRO 300 UNITS/3 ML VIAL SQ SCH ×2 (09:00→12:16)
[2017-09-18] MEDS: Multivit/Ca/Min/Fe/FA 1 TAB TABLET PO SCH (09:01)
[2017-09-18] MEDS: Aspirin Enteric Coated 81 MG Tablet PO SCH (09:01)
[2017-09-18 12:04] VITALS: BP 144/90
--- NOTE | 2017-09-18 12:36 | Discharge Summary ---
Date of Encounter: 09/18/17 Time of Encounter: 12:34 - Discharge Diagnosis (1) Atrial fibrillation with RVR Priority: Primary Status: Acute Comments: rate now well controlled About cardiology okay to discharge home has appointment for follow-up on oct 05 (2) Type 2 diabetes mellitus Priority: Secondary Status: Chronic Comments: chronic Qualifiers: Diabetes mellitus complication status: without complication Diabetes mellitus mcc insulin use: without mcc use Qualified Code(s): E11.9 - Type 2 diabetes mellitus without complications (3) Hyperlipidemia Priority: Secondary Status: Chronic Comments: chronic continue home meds Qualifiers: Hyperlipidemia type: pure hypercholesterolemia Qualified Code(s): E78.00 - Pure hypercholesterolemia, unspecified; E78.0 - Pure hypercholesterolemia (4) Essential hypertension Priority: Secondary Status: Chronic Comments: well controlled - Discharge Medications Prescriptions: Propafenone [Rhythmol] 150 mg PO Q8HR #60 tablet Home Medications: Atorvastatin [Lipitor] 40 mg PO QPM 04/23/17 [History] GlipiZIDE [Glipizide Xl] 5 mg PO QAM 04/23/17 [History] Metformin HCl [Glucophage] 1,000 mg PO QAM 04/23/17 [History] Multivit-Min/FA/Lycopen/Lutein [Centrum Silver Tablet] 1 each PO QAM 04/23/17 [ History] metFORMIN [Glucophage] 500 mg PO QPM 04/23/17 [History] Aspirin Enteric Coated [Aspirin EC] 81 mg PO DAILY #30 04/30/17 [Rx] Warfarin [Coumadin] 9 mg PO TH 06/03/17 [History] Warfarin [Coumadin] 6 mg PO SUMOTUWEFRSA 09/16/17 [History] Aspirin Enteric Coated [Aspirin EC] 81 mg PO DAILY tablet. 09/18/17 [Rx] Atorvastatin [Lipitor] 40 mg PO QPM tablet 09/18/17 [Rx] Propafenone [Rhythmol] 150 mg PO Q8HR tablet 09/18/17 [Rx] Propafenone [Rhythmol] 150 mg PO Q8HR #60 tablet 09/18/17 [Rx] Warfarin perPT [Coumadin perPT] 1 each PO DAILY@1800 PRN each 09/18/17 [Rx] Allergies/Adverse Reactions: 3 Allergy/AdvReac Type Severity Reaction Status Date / Time bee venom protein (honey bee) Allergy Difficulty Verified 09/15/17 22:33 Breathing Penicillins Allergy Rash Verified 09/15/17 22:33 Procedures/tests Complete & Pending: Procedures Performed prior 72 hours Category Date Time Status ECG 12 lead ECG [ECG] AM 0600 Y 09/16/17 06:00 Completed ECG 12 lead ECG [ECG] Routine Y 09/15/17 22:31 Completed EKG [ECG 12 lead ECG] [ECG] AM 0600 Y 09/17/17 06:00 Completed EKG [ECG 12 lead ECG] [ECG] AM 0600 Y 09/18/17 06:00 Ordered EKG [ECG 12 lead ECG] [ECG] AM 0600 Y 09/19/17 06:00 Ordered Date of admission: 09/16/17 01:44 Primary care physician: Yan Villavicencio Consults: 09/16/17 05:06 Consult to Physician [CONS] Routine Consulting Provider: Dany Nolan Reason for Consult: atrial fibrillation w RVR; meds changed recently due to bradycardia, now tachycardic upon presentation. Call Completed: No Discharging clinician: Yony Pedroza Anticipated date of discharge: 09/18/17 - Patient Status Disposition: Home, Self-Care Condition: Good Overall status at discharge: patient is back to baseline - Discharge Instructions - Diet and Activity Activity: other Diet: advance to your usual diet Hospital course: Mr. De La Rosa is a 67 year old male - Time Spent with Patient Total time spent providing and/or coordinating discharge services: - Constitutional Vitals: Temp Pulse Resp BP Pulse Ox 97.7 F 56 16 144/90 96 09/18/17 12:02 09/18/17 12:02 09/18/17 12:02 09/18/17 12:02 09/18/17 12:02 General appearance: Present: cooperative, A&O X 3, pleasant, no acute distress, answers questions appropriately - VTE Reasons for not Prescribing Prophylaxis: Not indicated-Anticoagulated or INR therapeutic
[2017-09-18] MEDS ORDERED: *HR* Warfarin 3 MG TABLET PO ONE (18:00)
--- NOTE | 2017-09-21 22:37 | Electrocardiograph Report ---
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
--- NOTE | 2017-09-21 22:40 | Electrocardiograph Report ---
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
== END 2017-09-18 13:20 | disposition home or self-care (01) ==
LOC: 3BNU 22:25 → EMEROO 22:25 → SUATTDRO 09-16 01:44 → 3BNU 09-16 02:40
PROVIDERS: ADMIT Pediatrics; ATTEND Internal Medicine

== ENCOUNTER 2018-08-04 14:36 | Observation (INO) ==
[2018-08-04 15:24] LABS: Basophils # 0.1 K/mcL (0.0-0.2); Basophils % 0.8 %; Eosinophils # 0.3 K/mcL (0.0-0.6); Eosinophils % 5.2 %; Hematocrit 49.6 % (37.5-50.1); Hemoglobin 16.6 g/dL (12.9-16.9); Immature Granulocytes % 0.2 % (0-4); Lymphocytes # 1.8 K/mcL (0.6-4.6); Lymphocytes % 28.8 %; Mean Corpuscular HGB Conc 33.5 g/dL (31.6-35.5); Mean Corpuscular Hemoglobin 29.7 pg (28.0-33.3); Mean Corpuscular Volume 88.9 fL (83.0-100.0); Mean Platelet Volume 9.8 fL (9.4-12.4); Monocytes # 0.4 K/mcL (0.0-1.3); Monocytes % 6.7 %; Neutrophils # 3.7 K/mcL (1.6-8.9); Platelet Count 145 K/mcL (140-400); Red Blood Count 5.58 M/mcL (4.19-5.50); Red Cell Distribution Width 15.5 % (11.5-14.5); Segmented Neutrophils % 58.3 %
[2018-08-04 15:32] LABS: INR 2.6; Prothrombin Time 29.7 Seconds (9.4-12.1)
[2018-08-04 15:43] LABS: Troponin I < 0.03 ng/mL (< 0.04)
[2018-08-04 15:45] LABS: BUN/Creatinine Ratio 18 (6-26); Blood Urea Nitrogen 18 mg/dL (8-23); Calcium 9.8 mg/dL (8.6-10.3); Carbon Dioxide 27 mEq/L (23-29); Chloride 104 mEq/L (98-107); Glucose 96 mg/dL (70-105); Osmolality,Calculated 288 (280-300); Potassium 4.8 mEq/L (3.5-5.1); Sodium 138 mEq/L (136-145); eGFR For Non-African Americans > 60 (> 60)
--- NOTE | 2018-08-04 15:47 | Emergency Department Note ---
Disposition Clinical Impression: Palpitations Disposition: Still a Patient Condition: Undetermined Referrals: aYn Villavicencio DO [Primary Care Provider] - Forms: ED Satisfaction Letter Arrhythmia/Palpitations HPI - General Chief Complaint: ED Arrhythmia/Palpitations Stated Complaint: Abnormal EKG Time Seen by Provider: 08/04/18 14:41 Source: patient - History of Present Illness HPI Narrative: The 68 years old male patient came to ED for palpitation for last one Day. He has h/o arterial fibrillation and he is taking medication. He did not have any abnormal heart rate since August 2017. Now he developed fast hear rate and he hears his heartbeat and feels heartbeat in his upper neck. He denies any sort of chest pain, shortness of breath, fever, any cerebral infection, cough, leg swelling. He is known patient of high blood pressure ,diabetes diabetes and Fib . He is on Coumadin for Afib Pt Subjective Complaint: rapid heart beat, "heart racing" Onset (ago): hour(s) Duration: constant Severity: moderate Associated symptoms: Reports: denies other symptoms. Denies: chest pain, shortness of breath, syncope, near-syncope, nausea, vomiting, anxiety, diaphoresis, cough, paresthesias, muscle cramps - Related Data Home Medications Medication Instructions Recorded Confirmed GlipiZIDE [Glipizide Xl] 5 mg PO QAM 04/23/17 08/04/18 Metformin HCl [Glucophage] 1,000 mg PO QAM 04/23/17 08/04/18 Multivit-Min/FA/Lycopen/Lutein 1 each PO QAM 04/23/17 08/04/18 [Centrum Silver Tablet] metFORMIN [Glucophage] 500 mg PO QPM 04/23/17 08/04/18 Cetirizine HCl [All Day Allergy] 10 mg PO DAILY 08/04/18 08/04/18 Lisinopril [Zestril] 10 mg PO DAILY 08/04/18 08/04/18 Propafenone [Rhythmol] 150 mg PO TID 08/04/18 08/04/18 Warfarin Sodium 6 mg PO MOWEFR 08/04/18 08/04/18 Warfarin Sodium 9 mg PO SUTUTHSA 08/04/18 08/04/18 Previous Rx's Medication Instructions Recorded Aspirin Enteric Coated [Aspirin EC] 81 mg PO DAILY tablet. 09/18/17 Atorvastatin [Lipitor] 40 mg PO QPM tablet 09/18/17 Allergies Allergy/AdvReac Type Severity Reaction Status Date / Time bee venom protein (honey bee) Allergy Difficulty Verified 09/15/17 22:33 Breathing Penicillins Allergy Rash Verified 08/04/18 18:56 All systems ED: reviewed and negative except as stated. Review of Systems: As Per HPI Constitutional: Reports: as per HPI. Denies: fever, chills, weakness Eyes: Reports: as per HPI. Denies: eye pain, eye discharge ENT ED: Reports: as per HPI. Denies: ear pain, throat pain Cardiovascular: Reports: as per HPI, palpitations. Denies: chest pain, dyspnea on exertion, orthopnea, edema, syncope, paroxysmal nocturnal dyspnea Respiratory: Reports: as per HPI. Denies: cough, dyspnea, wheezes, hemoptysis, stridor Gastrointestinal: Reports: as per HPI. Denies: abdominal pain, nausea, vomiting, diarrhea, constipation, hematemesis, melena, hematochezia Genitourinary: Reports: as per HPI. Denies: urgency, dysuria, frequency Musculoskeletal: Reports: as per HPI. Denies: back pain, neck pain, joint swelling Integumentary: Reports: as per HPI. Denies: rash, abrasion Neurological: Reports: as per HPI. Denies: headache, weakness, numbness Psychiatric: Reports: as per HPI. Denies: anxiety, depression, suicidal thoughts Endocrine: Reports: as per HPI. Denies: fatigue, heat or cold intolerance Hematological/Lymphatic: Reports: as per HPI. Denies: easy bleeding, easy bruising Allergic/Immunologic: Reports: as per HPI. Denies: facial swelling, urticaria Past Medical History - Past Medical History Medical history: Reports: atrial fibrillation, diabetes, hyperlipidemia, hypertension Surgical history: Reports: herniorrhaphy, orthopedic, other Psychiatric history: Reports: no psych history - Social History Smoking Status: Former smoker Smokeless Tobacco Status: No Alcohol use: Reports: occasionally Drug use: Reports: none Physical Exam - General Limitations: no limitations, altered mental status General appearance: alert, in no apparent distress - Head Head exam: atraumatic, normocephalic - Eye Eye exam: Present: normal appearance, PERRL, EOMI - ENT ENT exam: normal exam, normal oropharynx - Neck Neck exam: Present: normal inspection, full ROM - Chest Chest inspection: Present: normal inspection, symmetric chest wall rise - Respiratory Respiratory exam: Present: normal lung sounds bilaterally - Cardiovascular Cardiovascular exam: Present: normal rhythm, tachycardia, irregular rhythm, normal heart sounds, +S1, +S2. Absent: systolic murmur, diastolic murmur - Abdominal Exam Abdominal exam: Present: soft, Non-Tender, normal bowel sounds. Absent: ten derness, distention, guarding - Extremities Exam Extremities exam: Present: normal inspection, full ROM - Expanded Lower Extremity Exam Hip/Pelvis exam: Present: normal inspection, full ROM, tenderness - Back Exam Back exam: Present: normal inspection, full ROM. Absent: CVA tenderness (R), CVA tenderness (L) - Neurological Exam Neurological exam: Present: alert, oriented X3 - Psychiatric Psychiatric exam: Present: normal affect, normal mood - Skin Skin exam: Present: warm, normal color Course Course Narrative: The patient has Palpitation and known patient of A-fib under Coumadin. Current EKG shows : A flutter with heart rate 126 ( fast ventricular rate ) , so we started diltiazem 15 mg IV bolus and 50 mg continuous infusion. Vital Signs Temperature 97.9 F 08/04/18 14:43 Pulse Rate 121 08/04/18 14:43 Respiratory Rate 20 08/04/18 14:43 Blood Pressure 103/66 08/04/18 14:43 O2 Sat by Pulse Oximetry 97 08/04/18 14:43 Temperature 97.9 F 08/04/18 15:15 Pulse Rate 138 08/04/18 18:54 Respiratory Rate 17 08/04/18 18:54 Blood Pressure 101/71 08/04/18 18:54 O2 Sat by Pulse Oximetry 97 08/04/18 18:54 Oxygen Delivery Oxygen Delivery Room Air Arrhythmia/Palpitations - Lab Data Result diagrams: 08/04/18 15:04 08/04/18 15:04 Lab Results 08/04/18 08/04/18 08/04/18 Range/Units 15:04 15:04 15:04 WBC 6.4 (4.3-11.1) K/mcL RBC 5.58 H (4.19-5.50) M/mcL Hgb 16.6 (12.9-16.9) g/dL Hct 49.6 (37.5-50.1) % MCV 88.9 (83.0-100.0) fL MCH 29.7 (28.0-33.3) pg MCHC 33.5 (31.6-35.5) g/dL RDW 15.5 H (11.5-14.5) % Plt Count 145 (140-400) K/mcL MPV 9.8 (9.4-12.4) fL Immature Gran % 0.2 (0-4) % Seg Neutrophils % 58.3 % Lymphocytes % 28.8 % Monocytes % 6.7 % Eosinophils % 5.2 % Basophils % 0.8 % Neutrophils # 3.7 (1.6-8.9) K/mcL Lymphocytes # 1.8 (0.6-4.6) K/mcL Monocytes # 0.4 (0.0-1.3) K/mcL Eosinophils # 0.3 (0.0-0.6) K/mcL Basophils # 0.1 (0.0-0.2) K/mcL PT 29.7 H (9.4-12.1) Seconds INR 2.6 Sodium 138 (136-145) mEq/L Potassium 4.8 (3.5-5.1) mEq/L Chloride 104 (98-107) mEq/L Carbon Dioxide 27 (23-29) mEq/L BUN 18 (8-23) mg/dL Creatinine 0.99 (0.70-1.30) mg/dL Est GFR ( Amer) > 60 (> 60) Est GFR (Non-Af Amer) > 60 (> 60) BUN/Creatinine Ratio 18 (6-26) Glucose 96 (70-105) mg/dL Calculated Osmolality 288 (280-300) Calcium 9.8 (8.6-10.3) mg/dL Troponin I < 0.03 (< 0.04) ng/mL
[2018-08-04] MEDS ORDERED: 0.9 % Sodium Chloride 1,000 ML IVC ONE (15:48)
--- NOTE | 2018-08-04 17:14 | Emergency Department Note ---
Disposition Clinical Impression: Palpitations, Atrial arrhythmia Disposition: Admitted As Inpatient Condition: Good General Adult HPI - General Chief complaint: ED Arrhythmia/Palpitations Stated complaint: Abnormal EKG Time Seen by Provider: 08/04/18 14:41 Source: patient Limitations: no limitations, altered mental status - History of Present Illness Pain Scale: 0 - Related Data Home Medications Medication Instructions Recorded Confirmed RX: GlipiZIDE [Glipizide Xl] 5 mg PO QAM 04/23/17 08/04/18 RX: Metformin HCl [Glucophage] 1,000 mg PO QAM 04/23/17 08/04/18 RX: Multivit-Min/FA/Lycopen/Lutein 1 each PO QAM 04/23/17 08/04/18 [Centrum Silver Tablet] RX: metFORMIN [Glucophage] 500 mg PO QPM 04/23/17 08/04/18 Cetirizine HCl [All Day Allergy] 10 mg PO DAILY 08/04/18 08/04/18 RX: Lisinopril [Zestril] 10 mg PO DAILY 08/04/18 08/04/18 RX: Propafenone [Rhythmol] 150 mg PO TID 08/04/18 08/04/18 Warfarin Sodium 6 mg PO MOWEFR 08/04/18 08/04/18 Warfarin Sodium 9 mg PO SUTUTHSA 08/04/18 08/04/18 Previous Rx's Medication Instructions Recorded RX: Aspirin Enteric Coated 81 mg PO DAILY tablet. 09/18/17 [Aspirin EC] RX: Atorvastatin [Lipitor] 40 mg PO QPM tablet 09/18/17 Allergies Allergy/AdvReac Type Severity Reaction Status Date / Time bee venom protein (honey bee) Allergy Difficulty Verified 09/15/17 22:33 Breathing Penicillins Allergy Rash Verified 08/04/18 18:56 Constitutional: Reports: as per HPI. Denies: fever, chills, weakness Eyes: Reports: as per HPI. Denies: eye pain, eye discharge ENT ED: Reports: as per HPI. Denies: ear pain, throat pain Cardiovascular: Reports: as per HPI, palpitations. Denies: chest pain, dyspnea on exertion, orthopnea, edema, syncope, paroxysmal nocturnal dyspnea Respiratory: Reports: as per HPI. Denies: cough, dyspnea, wheezes, hemoptysis, stridor Gastrointestinal: Reports: as per HPI. Denies: abdominal pain, nausea, vomiting, diarrhea, constipation, hematemesis, melena, hematochezia Genitourinary: Reports: as per HPI. Denies: urgency, dysuria, frequency Musculoskeletal: Reports: as per HPI. Denies: back pain, neck pain, joint swelling Integumentary: Reports: as per HPI. Denies: rash, abrasion Neurological: Reports: as per HPI. Denies: headache, weakness, numbness Psychiatric: Reports: as per HPI. Denies: anxiety, depression, suicidal thoughts Endocrine: Reports: as per HPI. Denies: fatigue, heat or cold intolerance Hematological/Lymphatic: Reports: as per HPI. Denies: easy bleeding, easy bruising Allergic/Immunologic: Reports: as per HPI. Denies: facial swelling, urticaria Past Medical History - Past Medical History Medical history: Reports: atrial fibrillation, diabetes, hyperlipidemia, hypertension Surgical history: Reports: herniorrhaphy, orthopedic, other Psychiatric history: Reports: no psych history - Social History Smoking Status: Former smoker Smokeless Tobacco Status: No Alcohol use: Reports: occasionally Drug use: Reports: none Physical Exam - General Limitations: no limitations, altered mental status General appearance: alert, in no apparent distress Course Vital Signs Temperature 97.9 F 08/04/18 14:43 Pulse Rate 121 08/04/18 14:43 Respiratory Rate 20 08/04/18 14:43 Blood Pressure 103/66 08/04/18 14:43 O2 Sat by Pulse Oximetry 97 08/04/18 14:43 Temperature 97.9 F 08/05/18 03:29 Pulse Rate 120 08/05/18 03:29 Respiratory Rate 18 08/05/18 03:29 Blood Pressure 103/66 08/05/18 03:29 O2 Sat by Pulse Oximetry 96 08/05/18 03:29 Oxygen Delivery Oxygen Delivery Room Air Medical Decision Making - Lab Data Result diagrams: 08/05/18 03:36 08/05/18 03:36 Lab Results 08/04/18 08/04/18 08/04/18 Range/Units 15:04 15:04 15:04 WBC 6.4 (4.3-11.1) K/mcL RBC 5.58 H (4.19-5.50) M/mcL Hgb 16.6 (12.9-16.9) g/dL Hct 49.6 (37.5-50.1) % MCV 88.9 (83.0-100.0) fL MCH 29.7 (28.0-33.3) pg MCHC 33.5 (31.6-35.5) g/dL RDW 15.5 H (11.5-14.5) % Plt Count 145 (140-400) K/mcL MPV 9.8 (9.4-12.4) fL Immature Gran % 0.2 (0-4) % Seg Neutrophils % 58.3 % Lymphocytes % 28.8 % Monocytes % 6.7 % Eosinophils % 5.2 % Basophils % 0.8 % Neutrophils # 3.7 (1.6-8.9) K/mcL Lymphocytes # 1.8 (0.6-4.6) K/mcL Monocytes # 0.4 (0.0-1.3) K/mcL Eosinophils # 0.3 (0.0-0.6) K/mcL Basophils # 0.1 (0.0-0.2) K/mcL PT 29.7 H (9.4-12.1) Seconds INR 2.6 Sodium 138 (136-145) mEq/L Potassium 4.8 (3.5-5.1) mEq/L Chloride 104 (98-107) mEq/L Carbon Dioxide 27 (23-29) mEq/L BUN 18 (8-23) mg/dL Creatinine 0.99 (0.70-1.30) mg/dL Est GFR ( Amer) > 60 (> 60) Est GFR (Non-Af Amer) > 60 (> 60) BUN/Creatinine Ratio 18 (6-26) Glucose 96 (70-105) mg/dL Calculated Osmolality 288 (280-300) Calcium 9.8 (8.6-10.3) mg/dL Troponin I < 0.03 (< 0.04) ng/mL Attestation Statement - Attestation Attestation: I examined this patient and my medical decision-making was reviewed with the NEWS VIDEOGRAPHER/PA/Advanced Practice Nurse/Resident Physician. I agree with the documented findings, disposition and treatment plan as described except to the extent set forth below. I did speak with Dr. Mohan who sent the patient over here for atrial flutter w RVR and he did inform me he was sending the patient and that when the patient arrived I saw him and he has atrial flutter with rapid ventricular response with a rate in the low 130s however denies any chest pain, tightness, discomfort, pressure, dyspnea, diaphoresis, dizziness. I did write for Cardizem bolus 15 mg IV and Cardizem drip at 10 mg an hour however after the bolus the patient's blood pressure did decrease to the high 90s and so I did check up on the patient and wrote for a 1 L IV fluid bolus however at this point even before the bolus the pressure has improved and is currently 122 systolic so the patient will receive in addition to the 1 L IV fluid bolus and additional 10 mg IV Cardizem will see the can get his heart rate a little bit lower before he goes upstairs. I did review the patient's labs. I did review the EKG showing what appears to be atrial flutter with a rate of 124 bpm. Note that the flutter waves appear to come from 2 different foci 1713 I did repeat the EKG showing similar rhythm of atrial flutter with a rate of 133 bpm I did speak with the food science technician who would like the patient to receive his normally scheduled dose of Rythmol 150 mg and if the patient's rate remains high they will consider cardioversion tomorrow. The patient is asymptomatic at this time. 191
--- NOTE | 2018-08-04 19:37 | Emergency Department Note ---
Disposition Clinical Impression: Palpitations, Atrial arrhythmia Disposition: Admitted As Inpatient Condition: Good Referrals: Yan Villavicencio DO [Primary Care Provider] - Forms: ED Satisfaction Letter Time of Disposition: 19:37 General Adult HPI - General Chief complaint: ED Arrhythmia/Palpitations Stated complaint: Abnormal EKG Time Seen by Provider: 08/04/18 14:41 Source: patient Limitations: no limitations, altered mental status - History of Present Illness Pain Scale: 0 - Related Data Home Medications Medication Instructions Recorded Confirmed GlipiZIDE [Glipizide Xl] 5 mg PO QAM 04/23/17 08/04/18 Metformin HCl [Glucophage] 1,000 mg PO QAM 04/23/17 08/04/18 Multivit-Min/FA/Lycopen/Lutein 1 each PO QAM 04/23/17 08/04/18 [Centrum Silver Tablet] metFORMIN [Glucophage] 500 mg PO QPM 04/23/17 08/04/18 Cetirizine HCl [All Day Allergy] 10 mg PO DAILY 08/04/18 08/04/18 Lisinopril [Zestril] 10 mg PO DAILY 08/04/18 08/04/18 Propafenone [Rhythmol] 150 mg PO TID 08/04/18 08/04/18 Warfarin Sodium 6 mg PO MOWEFR 08/04/18 08/04/18 Warfarin Sodium 9 mg PO SUTUTHSA 08/04/18 08/04/18 Previous Rx's Medication Instructions Recorded Aspirin Enteric Coated [Aspirin EC] 81 mg PO DAILY tablet. 09/18/17 Atorvastatin [Lipitor] 40 mg PO QPM tablet 09/18/17 Allergies Allergy/AdvReac Type Severity Reaction Status Date / Time bee venom protein (honey bee) Allergy Difficulty Verified 09/15/17 22:33 Breathing Penicillins Allergy Rash Verified 08/04/18 18:56 Constitutional: Reports: as per HPI. Denies: fever, chills, weakness Eyes: Reports: as per HPI. Denies: eye pain, eye discharge ENT ED: Reports: as per HPI. Denies: ear pain, throat pain Cardiovascular: Reports: as per HPI, palpitations. Denies: chest pain, dyspnea on exertion, orthopnea, edema, syncope, paroxysmal nocturnal dyspnea Respiratory: Reports: as per HPI. Denies: cough, dyspnea, wheezes, hemoptysis, stridor Gastrointestinal: Reports: as per HPI. Denies: abdominal pain, nausea, vomiting, diarrhea, constipation, hematemesis, melena, hematochezia Genitourinary: Reports: as per HPI. Denies: urgency, dysuria, frequency Musculoskeletal: Reports: as per HPI. Denies: back pain, neck pain, joint swelling Integumentary: Reports: as per HPI. Denies: rash, abrasion Neurological: Reports: as per HPI. Denies: headache, weakness, numbness Psychiatric: Reports: as per HPI. Denies: anxiety, depression, suicidal thoughts Endocrine: Reports: as per HPI. Denies: fatigue, heat or cold intolerance Hematological/Lymphatic: Reports: as per HPI. Denies: easy bleeding, easy bruising Allergic/Immunologic: Reports: as per HPI. Denies: facial swelling, urticaria Past Medical History - Past Medical History Medical history: Reports: atrial fibrillation, diabetes, hyperlipidemia, hypertension Surgical history: Reports: herniorrhaphy, orthopedic, other Psychiatric history: Reports: no psych history - Social History Smoking Status: Former smoker Smokeless Tobacco Status: No Alcohol use: Reports: occasionally Drug use: Reports: none Physical Exam - General Limitations: no limitations, altered mental status General appearance: alert, in no apparent distress Course - Reevaluation(s) Reevaluation #1: Patient received in signout from the department in ED attending Dr. Boo, please see copy of his note for details of the H&P evaluation and management. Patient presents treatment atrial tachydysrhythmia patient was chemically cardioverted with IV Cardizem troponin negative the consult cardiology and sign the case out to me at 1900 to speak with hospitalist for admission. Discussed the case with Dr. GUARDADO, except for the patient for admission stable condition admission orders placed patient stable Time: 19:35 Vital Signs Temperature 97.9 F 08/04/18 14:43 Pulse Rate 121 08/04/18 14:43 Respiratory Rate 20 08/04/18 14:43 Blood Pressure 103/66 08/04/18 14:43 O2 Sat by Pulse Oximetry 97 08/04/18 14:43 Temperature 97.9 F 08/04/18 15:15 Pulse Rate 138 08/04/18 18:54 Respiratory Rate 17 08/04/18 18:54 Blood Pressure 101/71 08/04/18 18:54 O2 Sat by Pulse Oximetry 97 08/04/18 18:54 Oxygen Delivery Oxygen Delivery Room Air Medical Decision Making - Lab Data Result diagrams: 08/04/18 15:04 08/04/18 15:04 Lab Results 08/04/18 08/04/18 08/04/18 Range/Units 15:04 15:04 15:04 WBC 6.4 (4.3-11.1) K/mcL RBC 5.58 H (4.19-5.50) M/mcL Hgb 16.6 (12.9-16.9) g/dL Hct 49.6 (37.5-50.1) % MCV 88.9 (83.0-100.0) fL MCH 29.7 (28.0-33.3) pg MCHC 33.5 (31.6-35.5) g/dL RDW 15.5 H (11.5-14.5) % Plt Count 145 (140-400) K/mcL MPV 9.8 (9.4-12.4) fL Immature Gran % 0.2 (0-4) % Seg Neutrophils % 58.3 % Lymphocytes % 28.8 % Monocytes % 6.7 % Eosinophils % 5.2 % Basophils % 0.8 % Neutrophils # 3.7 (1.6-8.9) K/mcL Lymphocytes # 1.8 (0.6-4.6) K/mcL Monocytes # 0.4 (0.0-1.3) K/mcL Eosinophils # 0.3 (0.0-0.6) K/mcL Basophils # 0.1 (0.0-0.2) K/mcL PT 29.7 H (9.4-12.1) Seconds INR 2.6 Sodium 138 (136-145) mEq/L Potassium 4.8 (3.5-5.1) mEq/L Chloride 104 (98-107) mEq/L Carbon Dioxide 27 (23-29) mEq/L BUN 18 (8-23) mg/dL Creatinine 0.99 (0.70-1.30) mg/dL Est GFR ( Amer) > 60 (> 60) Est GFR (Non-Af Amer) > 60 (> 60) BUN/Creatinine Ratio 18 (6-26) Glucose 96 (70-105) mg/dL Calculated Osmolality 288 (280-300) Calcium 9.8 (8.6-10.3) mg/dL Troponin I < 0.03 (< 0.04) ng/mL
[2018-08-04] MEDS ORDERED: Naloxone 0.4 MG/ML INJ IVP PRN (20:57)
[2018-08-04] MEDS ORDERED: Acetaminophen 325 MG TABLET PO PRN (20:57)
[2018-08-04] MEDS ORDERED: *HR* Warfarin 3 MG TABLET PO SCH (21:00)
[2018-08-04] MEDS ORDERED: Dextrose Gel 15 GM/37.5 ML TUBE PO PRN ×2 (21:06)
[2018-08-04] MEDS ORDERED: *HR* Dextrose 50 % in Water (Syg) 50 ML SYRINGE IVP PRN (21:06)
[2018-08-04] MEDS ORDERED: D5% in Water 1,000 ML IVC PRN (21:06)
--- NOTE | 2018-08-04 21:10 | Internal Med History&Physical ---
Addendum entered and electronically signed by Harshal Bonilla MD 08/05/18 00:45: I saw and evaluated the patient. I reviewed the residents note, performed my own physical examination and agree with findings and plan as documented in the residents note. Patient seen and examined on 08/04/18. Currently rate in 110's-120's. Patient denies chest pain and shortness of breath. Will continue to monitor. Titrate diltiazem to response. Possibly a-fib could be triggered by hypotension induced by new medication. We will hold HTN medication. Original Note: Date of Encounter: 08/04/18 Time of Encounter: 21:10 Internal Medicine - H&P: HPI Chief complaint: Palpitations Admitted From: Emergency Dept Plans for Post Hospital Care: Home History of present illness: Mr. De La Rosa is a 68 year old male with a past medical history of atrial fibrillation, diabetes mellitus, hyperlipidemia, hypertension. He has had multiple hospitalizations in the past for atrial fibrillation with rapid ventricular rate. 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 Patient denies having chest pain or shortness of breath at any time. In the emergency department patient was given a dose of propafenone and diltiazem and started on a diltiazem drip. In interviewing the patient he denies any recent illness. He states his only medical change recently was being started on lisinopril for hypertension 2 weeks ago. Family history consists of atrial fibrillation in his mother and coronary artery disease in his father. He is a past smoker who quit 25 years ago, seldomly drinks alcohol, does not do drugs. He was admitted for r ate control. At the time of admission patient was hemodynamically stable. Past Med Surg Social Fam HX - Past Medical History Medical history: atrial fibrillation, diabetes, hyperlipidemia, hypertension Psychiatric history: no psych history - Past Surgical History Surgical History: herniorrhaphy, orthopedic, other Additional surgical history: left leg quad tendon repair - Social History Smoking Status: Former smoker Smokeless Tobacco Status: No Alcohol use: occasionally Drug use: none - Family History Father Adopted: No Family Member Ethnicity: Non- Living Status: Hx Family Cardiac Disorders: Yes Hx Family Respiratory Disorders: No Hx Family Cancer: Yes (SKIN CANCER) Hx Family GI Disorders: No Hx Family Endocrine Disorder: No Hx Family Neuromuscular Disorders: Yes (POLIO) Hx Family Neurologic Disorders: No Hx Family HEENT Disorders: Yes (MACULAR DEGENERATION) Hx Family Autoimmune Disorders: No Mother Adopted: No Family Member Ethnicity: Non- Twin of Family Member: Yes Living Status: Hx Family Cardiac Disorders: Yes (A FIB) Hx Family Respiratory Disorders: No Hx Family Cancer: No Hx Family GI Disorders: Yes (CONSTIPATION) Hx Family Endocrine Disorder: No Hx Family Neuromuscular Disorders: No Hx Family Neurologic Disorders: No Hx Family HEENT Disorders: Yes (GLAUCOMA) Hx Family Autoimmune Disorders: No Internal Medicine - H&P: Meds GlipiZIDE [Glipizide Xl] 5 mg PO QAM 04/23/17 [History] Metformin HCl [Glucophage] 1,000 mg PO QAM 04/23/17 [History] Multivit-Min/FA/Lycopen/Lutein [Centrum Silver Tablet] 1 each PO QAM 04/23/17 [History] metFORMIN [Glucophage] 500 mg PO QPM 04/23/17 [History] Aspirin Enteric Coated [Aspirin EC] 81 mg PO DAILY tablet. 09/18/17 [Rx] Atorvastatin [Lipitor] 40 mg PO QPM tablet 09/18/17 [Rx] Cetirizine HCl [All Day Allergy] 10 mg PO DAILY 08/04/18 [History] Lisinopril [Zestril] 10 mg PO DAILY 08/04/18 [History] Propafenone [Rhythmol] 150 mg PO TID 08/04/18 [History] Warfarin Sodium 6 mg PO MOWEFR 08/04/18 [History] Warfarin Sodium 9 mg PO SUTUTHSA 08/04/18 [History] Allergy/AdvReac Type Severity Reaction Status Date / Time bee venom protein (honey bee) Allergy Difficulty Verified 09/15/17 22:33 Breathing Penicillins Allergy Rash Verified 08/04/18 18:56 All Systems PM: A 10-system review of systems was performed and is negative for pertinent findings except as documented above in the HPI. - Constitutional Vitals: Temp Pulse Resp BP Pulse Ox 98 F 127 18 106/76 96 08/04/18 21:01 08/04/18 21:01 08/04/18 21:01 08/04/18 21:01 08/04/18 21:01 Exam: Patient in no acute distress Alert and oriented 3 Normal affect Cranial nerves II through XII intact Pupils equal and reactive to light Mucous membranes moist Heart in tachycardic rate and regular rhythm without murmur or gallop Lungs clear to auscultation bilaterally without wheeze or rales or rhonchi Abdomen soft and nontender with normal bowel sounds present Bilateral lower extremities 1+ pitting edematous, right leg larger than left but nontender Bilateral lower extremities exhibited darkened skin color likely secondary to venous stasis dermatitis Skin warm and dry Internal Med - H&P Results - Labs CBC & Chem 7: 08/04/18 15:04 08/04/18 15:04 Labs: Short CBC 08/04/18 Range/Units 15:04 WBC 6.4 (4.3-11.1) K/mcL Hgb 16.6 (12.9-16.9) g/dL Hct 49.6 (37.5-50.1) % Plt Count 145 (140-400) K/mcL Neutrophils # 3.7 (1.6-8.9) K/mcL BMP 08/04/18 15:04 Sodium 138 Potassium 4.8 Chloride 104 Carbon Dioxide 27 BUN 18 Creatinine 0.99 Glucose 96 Calcium 9.8 Cardiac Enzymes 08/04/18 Range/Units 15:04 Troponin I < 0.03 (< 0.04) ng/mL - Impressions ITS Impressions Chest X-Ray 08/04/18 14:42 IMPRESSION: Stable exam without evidence for acute cardiopulmonary process. D/ / Alexandro García MD / Alexandro García MD Interpreting Provider: Alexandro García MD - Assessment and plan (1) Atrial fibrillation and flutter Current Visit: Yes Status: Acute Assessment and plan: Patient has history of chronic atrial fibrillation History includes multiple hospitalizations for atrial fibrillation with rapid ventricular rate Most recent echocardiogram in May 2017 demonstrated mild diastolic dysfunction with preserved ejection fraction of 60% This admission is for atrial flutter with rapid ventricular rate Patient takes Rythmol for rate and rhythm control Patient takes Coumadin for anticoagulation On admission all other vitals are within normal limits Rhythmol bolus, diltiazem bolus, diltiazem drip started in the ER New-onset rapid ventricular rate likely idiopathic RVR could possibly be secondary to reflex tachycardia from hypotension after recently starting lisinopril Plan Telemetry Diltiazem drip 10mg per hour Continue home Rhythmol MIVF NS 150ml/hr Cardiology consultation Hold home Lisinopril Coumadin per PT (2) Essential hypertension Current Visit: No Status: Chronic Assessment and plan: Patient has history of chronic hypertension Recently started on lisinopril 2 weeks ago Blood pressure on arrival 103/66 Current blood pressure 106/76 We will hold home lisinopril and continue to monitor (3) Type 2 diabetes mellitus Current Visit: No Status: Chronic Assessment and plan: Patient has chronic history of well-controlled type 2 diabetes without insulin dependence We will hold home medications and start before meals at bedtime glucose checks and TIDAC low-dose sliding scale insulin protocol Qualifiers: Diabetes mellitus fdc insulin use: without fdc use Diabetes mellitus complication status: without complication Qualified Code(s): E11.9 - Type 2 diabetes mellitus without complications (4) Hyperlipidemia Current Visit: No Status: Chronic Assessment and plan: Continue home atorvastatin Qualifiers: Hyperlipidemia type: pure hypercholesterolemia Qualified Code(s): E78.00 - Pure hypercholesterolemia, unspecified; E78.0 - Pure hypercholesterolemia (5) DVT prophylaxis Current Visit: Yes Status: Acute Assessment and plan: Coumadin per PT - Time Spent With Patient Total time spent is greater than 50% in coordination of care (as documented) at patient's floor/unit and/or counseling patient:
[2018-08-04] MEDS: 0.9 % Sodium Chloride 1,000 ML IVC SCH (21:22)
[2018-08-04] MEDS: Insulin LISPRO 300 UNITS/3 ML VIAL SQ SCH (22:37)
[2018-08-05] MEDS: 0.9 % Sodium Chloride 1,000 ML IVC SCH (04:09)
[2018-08-05 04:14] LABS: Basophils % 0.8 %; Eosinophils # 0.3 K/mcL (0.0-0.6); Eosinophils % 4.9 %; Hematocrit 44.4 % (37.5-50.1); Immature Granulocytes % 0.2 % (0-4); Lymphocytes # 1.7 K/mcL (0.6-4.6); Lymphocytes % 32.1 %; Mean Corpuscular HGB Conc 32.7 g/dL (31.6-35.5); Mean Corpuscular Hemoglobin 29.1 pg (28.0-33.3); Mean Platelet Volume 9.9 fL (9.4-12.4); Monocytes # 0.3 K/mcL (0.0-1.3); Monocytes % 6.4 %; Platelet Count 119 K/mcL (140-400); Red Blood Count 4.99 M/mcL (4.19-5.50); Red Cell Distribution Width 14.9 % (11.5-14.5); Segmented Neutrophils % 55.6 %
[2018-08-05 04:19] LABS: Hemoglobin 14.5 g/dL (12.9-16.9)
[2018-08-05 04:33] LABS: INR 2.7
[2018-08-05 04:35] LABS: Activated Partial Thrombo Time 45.2 Seconds (26.0-36.0); BUN/Creatinine Ratio 18 (6-26); Blood Urea Nitrogen 15 mg/dL (8-23); Calcium 8.3 mg/dL (8.6-10.3); Carbon Dioxide 24 mEq/L (23-29); Chloride 109 mEq/L (98-107); Glucose 101 mg/dL (70-105); Osmolality,Calculated 291 (280-300); Potassium 3.8 mEq/L (3.5-5.1); Sodium 140 mEq/L (136-145); eGFR For Non-African Americans > 60 (> 60)
--- NOTE | 2018-08-05 08:41 | Cardiology Consult Note ---
Date of Encounter: 08/05/18 Time of Encounter: 08:00 Assessment and Plan (1) Atrial fibrillation and flutter Current Visit: Yes Status: Acute EKG from this morning with atrial flutter with heart rate 136. History of recurrent Afib with RVR. Heart rate 120-130s today. Echocardiogram from 05/2017 showed EF 60% and mild diastolic dysfunction. Plan to increase Rhythmol from 150mg to 225mg PO q8h. Continue cardizem drip. Continue coumadin. INR therapeutic. Reviewed coumadin clinic documents. Patient's INR has been therapeutic, and above 2 for the past three weeks. Plan for cardioversion this afternoon. (2) Essential hypertension Current Visit: No Status: Chronic Lisinopril on hold. Management per Medicine service. (3) Type 2 diabetes mellitus Current Visit: No Status: Chronic Management per medicine service. Qualifiers: Diabetes mellitus penitentiary insulin use: without penitentiary use Diabetes mellitus complication status: without complication Qualified Code(s): E11.9 - Type 2 diabetes mellitus without complications Discussion w patient/family: The assessment and plan as outlined above was discussed with the patient and/or family members who expressed understanding and agreement. All questions were answered. Thank you for involving us in the care of your patient. Please call with any questions. History of Present Illness Consult date: 08/04/18 Requesting physician: Stan Mcclendon Consult reason: history of Afib admitted for Aflutter RVR Chief complaint: palpitations History of present illness: Mr. De La Rosa is a 68 year old male with past medical history including atrial fibrillation on rythmol and coumadin, diabetes mellitus type 2, hypertension, hyperlipidemia, who presents with a chief complaint of palpitations. Patient states yesterday he woke up feeling uneasy. States his heart rate was 105. Throughout the morning he complains of periods of palpitations. He followed up with Dr. Mohan in the afternoon. EKG was obtained and the patient was in atrial flutter with RVR. He was advised to go to the ED. Patient denies chest pain, shortness of breath, diaphoresis, lightheadedness, fatigue, or nausea. States he was started on lisinopril approximately two weeks ago for his hypertension. In the ED, ekg showed atrial flutter with heart rate 126. Patient received his dose of rythmol (150mg), diltiazem bolus and drip at 15mg/hr. Patient was admitted for further rate control. Cardiology consulted. This morning patient states he is doing well. Denies chest pain, palpitations, shortness of breath, or any new complaints. On diltiazem drip 10mls/hr. EKG done this morning with atrial flutter and rate 132. Patient asymptomatic. Past Med Surg Social Fam HX - Past Medical History Medical history: atrial fibrillation, diabetes, hyperlipidemia, hypertension Psychiatric history: no psych history - Past Surgical History Surgical History: herniorrhaphy, orthopedic, other Additional surgical history: left leg quad tendon repair - Social History Smoking Status: Former smoker Smokeless Tobacco Status: No Alcohol use: occasionally Drug use: none - Family History Father Adopted: No Family Member Ethnicity: Non- Living Status: Hx Family Cardiac Disorders: Yes Hx Family Respiratory Disorders: No Hx Family Cancer: Yes (SKIN CANCER) Hx Family GI Disorders: No Hx Family Endocrine Disorder: No Hx Family Neuromuscular Disorders: Yes (POLIO) Hx Family Neurologic Disorders: No Hx Family HEENT Disorders: Yes (MACULAR DEGENERATION) Hx Family Autoimmune Disorders: No Mother Adopted: No Family Member Ethnicity: Non- Twin of Family Member: Yes Living Status: Hx Family Cardiac Disorders: Yes (A FIB) Hx Family Respiratory Disorders: No Hx Family Cancer: No Hx Family GI Disorders: Yes (CONSTIPATION) Hx Family Endocrine Disorder: No Hx Family Neuromuscular Disorders: No Hx Family Neurologic Disorders: No Hx Family HEENT Disorders: Yes (GLAUCOMA) Hx Family Autoimmune Disorders: No Medications and Allergies GlipiZIDE [Glipizide Xl] 5 mg PO QAM 04/23/17 [History] Metformin HCl [Glucophage] 1,000 mg PO QAM 04/23/17 [History] Multivit-Min/FA/Lycopen/Lutein [Centrum Silver Tablet] 1 each PO QAM 04/23/17 [History] metFORMIN [Glucophage] 500 mg PO QPM 04/23/17 [History] Aspirin Enteric Coated [Aspirin EC] 81 mg PO DAILY tablet. 09/18/17 [Rx] Atorvastatin [Lipitor] 40 mg PO QPM tablet 09/18/17 [Rx] Cetirizine HCl [All Day Allergy] 10 mg PO DAILY 08/04/18 [History] Lisinopril [Zestril] 10 mg PO DAILY 08/04/18 [History] Propafenone [Rhythmol] 150 mg PO TID 08/04/18 [History] Warfarin Sodium 6 mg PO MOWEFR 08/04/18 [History] Warfarin Sodium 9 mg PO SUTUTHSA 08/04/18 [History] Allergy/AdvReac Type Severity Reaction Status Date / Time bee venom protein (honey bee) Allergy Difficulty Verified 09/15/17 22:33 Breathing Penicillins Allergy Rash Verified 08/04/18 18:56 All Systems Review: The remainder of the systems were reviewed and are negative - Constitutional Constitutional: no chills, no fever(s), no headache(s), no lethargy, no weakness - EENT Eyes: no blurred vision Nose, mouth and throat: no dysphagia, no sore throat - Cardiovascular Cardiovascular: irregular heart rhythm, palpitations, no chest pain at rest, no chest pain with exertion, no diaphoresis, no dyspnea at rest, no dyspnea on exertion, no leg edema, no lightheadedness - Respiratory Respiratory: no cough, no dyspnea - Gastrointestinal Gastrointestinal: no abdominal pain, no constipation, no nausea - Genitourinary Genitourinary: no dysuria - Musculoskeletal Musculoskeletal: no back pain - Integumentary Integumentary: no rash - Neurological Neurological: no dizziness Physical Examination Vital Signs, Last 4 Hours Temp Pulse Resp BP Pulse Ox 08/05/18 07:22 97.5 F L 129 16 105/74 95 General: Conversant, No Apparent Distress HEENT: Atraumatic, Normocephaly, Mucus Membranes Moist Neck: No JVD, Normal carotid pulses Cardiac: Other (irregular rhythm ,tachycardic) Lungs: Normal Breath Sounds, No Wheeze, Rales, Rhonchi Neuro: Alert and responsive, No focal deficits noted Abdomen: Soft, Non-Tender Skin: No rashes noted on visualized skin Extremities: No Edema, Normal Pulses (radial pulses equal bilaterally) Results 08/05/18 03:36 08/05/18 03:36 Lab Results 08/04/18 08/04/18 08/04/18 15:04 15:04 15:04 WBC 6.4 Hgb 16.6 Hct 49.6 Plt Count 145 INR 2.6 APTT Sodium 138 Potassium 4.8 Chloride 104 Carbon Dioxide 27 BUN 18 Creatinine 0.99 Glucose 96 Calcium 9.8 Troponin I < 0.03 08/05/18 08/05/18 08/05/18 03:36 03:36 03:36 WBC 5.3 Hgb 14.5 D Hct 44.4 Plt Count 119 L INR 2.7 APTT 45.2 H Sodium 140 Potassium 3.8 Chloride 109 H Carbon Dioxide 24 BUN 15 Creatinine 0.84 Glucose 101 Calcium 8.3 L Troponin I - Imaging and Cardiology Chest Xray: report reviewed - EKG Interpretation EKG results cardiology: personally reviewed Consult Discharge Plan - Plan Referrals: Yan Villavicencio DO [Primary Care Provider] -
[2018-08-05] MEDS: Insulin LISPRO 300 UNITS/3 ML VIAL SQ SCH ×4 (08:53→20:58)
[2018-08-05] MEDS: Aspirin Enteric Coated 81 MG Tablet PO SCH (09:28)
[2018-08-05] MEDS ORDERED: *HR* FentaNYL (PF) 100 MCG/2 ML VIAL IVP PRN (12:18)
[2018-08-05] MEDS ORDERED: 0.9 % Sodium Chloride 500 ML IVC ONE (12:19)
[2018-08-05] MEDS: *HR* Midazolam HCl 5 MG/5 ML VIAL IVP PRN ×3 (13:10→13:17)
--- NOTE | 2018-08-05 14:03 | Internal Med Progress Note ---
Hospitalist Progress Note - Encounter Date of Encounter: 08/05/18 Time of Encounter: 14:11 - Subjective Interval History: Pt denies CP or SOB. He does report having palpitations. He denies fever, chills, N/V or diarrhea. - Exam Vitals: Temp Pulse Resp BP Pulse Ox 97.7 F 140 16 117/79 95 08/05/18 12:47 08/05/18 12:47 08/05/18 12:47 08/05/18 12:47 08/05/18 12:47 Exam: Exam: Patient in no acute distress Alert and oriented 3 Normal affect Cranial nerves II through XII intact Pupils equal and reactive to light Mucous membranes moist Heart in irregularly irregular rhythm without murmur or gallop Lungs clear to auscultation bilaterally without wheeze or rales or rhonchi Abdomen soft and nontender with normal bowel sounds present Bilateral lower extremities 1+ pitting edematous, right leg larger than left but nontender Bilateral lower extremities exhibited darkened skin color likely secondary to venous stasis dermatitis Skin warm and dry - Assessment and Plan (1) Atrial fibrillation and flutter Current Visit: Yes Status: Acute Assessment and Plan: Patient has history of chronic atrial fibrillation History includes multiple hospitalizations for atrial fibrillation with rapid ventricular rate Most recent echocardiogram in May 2017 demonstrated mild diastolic dysfunction with preserved ejection fraction of 60% This admission is for atrial flutter with rapid ventricular rate Patient takes Rythmol for rate and rhythm control Patient takes Coumadin for anticoagulation On admission all other vitals are within normal limits Rhythmol bolus, diltiazem bolus, diltiazem drip started in the ER Plan Telemetry Cardiology on board and on Diltiazem drip to titrate to 15 mghr. Possible cardioversion this evening by cardiology. Continue home Rhythmol Hold home Lisinopril Coumadin per PT (2) Type 2 diabetes mellitus Current Visit: No Status: Chronic Assessment and Plan: Patient has chronic history of well-controlled type 2 diabetes without insulin dependence holding home medications and started on before meals at bedtime glucose checks. TIDAC low-dose sliding scale insulin protocol (3) Hyperlipidemia Current Visit: No Status: Chronic Assessment and Plan: Continue home atorvastatin (4) Essential hypertension Current Visit: No Status: Chronic Assessment and Plan: Patient has history of chronic hypertension Recently started on lisinopril 2 weeks ago Blood pressure on arrival 103/66 and has been on the low side lisinopril on hold and will continue to monitor DVT Prophylaxis: Coumadin per PT - Summary of Assessment and Plan Summary of Assessment and Plan: Mr. De La Rosa is a 68 year old male with a past medical history of atrial fibrillation, diabetes mellitus, hyperlipidemia, hypertension. He has had multiple hospitalizations in the past for atrial fibrillation with rapid ventricular rate. 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 Patient denies having chest pain or shortness of breath at any time. In the emergency department patient was given a dose of propafenone and diltiazem and started on a diltiazem drip. In interviewing the patient he denies any recent illness. He states his only medical change recently was being started on lisinopril for hypertension 2 weeks ago. Family history consists of atrial fibrillation in his mother and coronary artery disease in his father. He is a past smoker who quit 25 years ago, seldomly drinks alcohol, does not do drugs. He was admitted for rate control. - Time Spent with Patient Total time spent is greater than 50% in coordination of care (as documented) at patient's floor/unit and/or counseling patient: less than 15 minutes Plan of Care Discussed with: patient Internal Medicine: Result - Labs CBC & Chem 7: 08/05/18 03:36 08/05/18 03:36 Labs: Short CBC 08/04/18 08/05/18 Range/Units 15:04 03:36 WBC 6.4 5.3 (4.3-11.1) K/mcL Hgb 16.6 14.5 D (12.9-16.9) g/dL Hct 49.6 44.4 (37.5-50.1) % Plt Count 145 119 L (140-400) K/mcL Neutrophils # 3.7 3.0 (1.6-8.9) K/mcL BMP 08/04/18 08/05/18 15:04 03:36 Sodium 138 140 Potassium 4.8 3.8 Chloride 104 109 H Carbon Dioxide 27 24 BUN 18 15 Creatinine 0.99 0.84 Glucose 96 101 Calcium 9.8 8.3 L Cardiac Enzymes 08/04/18 Range/Units 15:04 Troponin I < 0.03 (< 0.04) ng/mL - ABG Interpretation ABG results: PT/INR, D-dimer PT 30.0 Seconds (9.4-12.1) H 08/05/18 03:36 - Impressions Impressions Chest X-Ray 08/04/18 14:42 IMPRESSION: Stable exam without evidence for acute cardiopulmonary process. D/ / Alexandro García MD / Alexandro García MD Interpreting Provider: Alexandro García MD Consult Discharge Plan - Plan Referrals: Yan Villavicencio DO [Primary Care Provider] - (2) Type 2 diabetes mellitus Qualifiers: Diabetes mellitus retirement insulin use: without intermediate card tender use Diabetes mellitus complication status: without complication Qualified Code(s): E11.9 - Type 2 diabetes mellitus without complications (3) Hyperlipidemia Qualifiers: Hyperlipidemia type: pure hypercholesterolemia Qualified Code(s): E78.00 - Pure hypercholesterolemia, unspecified; E78.0 - Pure hypercholesterolemia
[2018-08-05] MEDS ORDERED: *HR* Warfarin 3 MG TABLET PO SCH (18:00)
[2018-08-05] MEDS ORDERED: Warfarin perPT PO PRN (18:00)
[2018-08-05] MEDS ORDERED: *HR* Warfarin 3 MG TABLET PO ONE (18:00)
[2018-08-05] MEDS ORDERED: Insulin LISPRO 300 UNITS/3 ML VIAL SQ SCH (21:00)
[2018-08-06 07:11] VITALS: BP 142/86
[2018-08-06] MEDS: Insulin LISPRO 300 UNITS/3 ML VIAL SQ SCH (08:55)
[2018-08-06] MEDS: Aspirin Enteric Coated 81 MG Tablet PO SCH (09:01)
--- NOTE | 2018-08-06 11:15 | Discharge Summary ---
- NOTES TO OUTPATIENT PROVIDER Notes to Outpatient Provider: PCP in 5 to 7 days and cardiology as scheuled Orders not resulted at time of discharge: Pending orders 08/06/18 04:00 INR/PT [Prothrombin Time INR] [COAG] AM 0400 08/06/18 07:49 ECG 12 lead ECG [ECG] Stat 08/07/18 04:00 INR/PT [Prothrombin Time INR] [COAG] AM 0400 08/08/18 04:00 INR/PT [Prothrombin Time INR] [COAG] AM 0400 Date of Encounter: 08/06/18 Time of Encounter: 11:12 - Discharge Diagnosis (1) Atrial fibrillation and flutter Priority: Primary Status: Acute Assessment and Plan: Patient has history of chronic atrial fibrillation History includes multiple hospitalizations for atrial fibrillation with rapid ventricular rate Most recent echocardiogram in May 2017 demonstrated mild diastolic dysfunction with preserved ejection fraction of 60% This admission is for atrial flutter with rapid ventricular rate Patient takes Rythmol for rate and rhythm control Patient takes Coumadin for anticoagulation On admission all other vitals are within normal limits Rhythmol bolus, diltiazem bolus, diltiazem drip started in the ER He was admitted to telemetry Cardiology on board and he is s/p successful cardioversion 08/05/2018 Rhythmol dose increased to 225 mg Q8hrs from 150 mg Q8 hrs and resuming other home cardiac meds. Lisinopril was held due to hypotension but BP back up. Resuming home dose Coumadin. (2) Type 2 diabetes mellitus Priority: Secondary Status: Chronic Assessment and Plan: Patient has chronic history of well-controlled type 2 diabetes without insulin dependence holding home medications and started on before meals at bedtime glucose checks. TIDAC low-dose sliding scale insulin protocol Qualifiers: Diabetes mellitus outpatient psychiatrist insulin use: without prison use Diabetes mellitus complication status: without complication Qualified Code(s): E11.9 - Type 2 diabetes mellitus without complications (3) Hyperlipidemia Priority: Secondary Status: Chronic Assessment and Plan: Continue home atorvastatin Qualifiers: Hyperlipidemia type: pure hypercholesterolemia Qualified Code(s): E78.00 - Pure hypercholesterolemia, unspecified; E78.0 - Pure hypercholesterolemia (4) Essential hypertension Priority: Secondary Status: Chronic Assessment and Plan: Patient has history of chronic hypertension Recently started on lisinopril 2 weeks ago Blood pressure on arrival 103/66 and has been on the low side lisinopril was on hold and given fluids. BP back up so will resume home dose Lisinopril at discharge Hospital course: Mr. De La Rosa is a 68 year old male with a past medical history of atrial fibrillation, diabetes mellitus, hyperlipidemia, hypertension. He has had multiple hospitalizations in the past for atrial fibrillation with rapid ventricular rate. 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 Patient denies having chest pain or shortness of breath at any time. In the emergency department patient was given a dose of propafenone and diltiazem and started on a diltiazem drip. In interviewing the patient he denies any recent illness. He states his only medical change recently was being started on lisinopril for hypertension 2 weeks ago. Family history consists of atrial fibrillation in his mother and coronary artery disease in his father. He is a past smoker who quit 25 years ago, seldomly drinks alcohol, does not do drugs. He was admitted for rate control. See assessment and plan for hospital course. Discharge discussed with: patient - Time Spent with Patient Total time spent providing and/or coordinating discharge services: Greater than 30 minutes - Discharge Medications Home Medications: GlipiZIDE [Glipizide Xl] 5 mg PO QAM 04/23/17 [History] Metformin HCl [Glucophage] 1,000 mg PO QAM 04/23/17 [History] Multivit-Min/FA/Lycopen/Lutein [Centrum Silver Tablet] 1 each PO QAM 04/23/17 [History] metFORMIN [Glucophage] 500 mg PO QPM 04/23/17 [History] Aspirin Enteric Coated [Aspirin EC] 81 mg PO DAILY tablet. 09/18/17 [Rx] Atorvastatin [Lipitor] 40 mg PO QPM tablet 09/18/17 [Rx] Cetirizine HCl [All Day Allergy] 10 mg PO DAILY 08/04/18 [History] Lisinopril [Zestril] 10 mg PO DAILY 08/04/18 [History] Propafenone [Rhythmol] 150 mg PO TID 08/04/18 [History] Warfarin Sodium 6 mg PO MOWEFR 08/04/18 [History] Warfarin Sodium 9 mg PO SUTUTHSA 08/04/18 [History] Allergies/Adverse Reactions: Allergy/AdvReac Type Severity Reaction Status Date / Time bee venom protein (honey bee) Allergy Difficulty Verified 09/15/17 22:33 Breathing Penicillins Allergy Rash Verified 08/04/18 18:56 Date of admission: 08/04/18 19:48 Primary care physician: Yan Villavicencio Consults: 08/04/18 21:04 Consult to Cardiology [CONS] Routine Comment: Consulting Provider: Cardiology Gisele Reason for Consult: Dr. Mohan patient with known history of AFIB admitted for AFlutter RVR Call Completed: No Discharging clinician: Stephania Hernandez Anticipated date of discharge: 08/06/18 - Constitutional Vitals: Temp Pulse Resp BP Pulse Ox 97.6 F 71 16 142/86 97 08/06/18 07:05 08/06/18 07:05 08/06/18 07:05 08/06/18 07:05 08/06/18 09:00 Exam: Exam: Patient in no acute distress Alert and oriented 3 Normal affect Cranial nerves II through XII intact Pupils equal and reactive to light Mucous membranes moist Heart RRR without murmur or gallop Lungs clear to auscultation bilaterally without wheeze or rales or rhonchi Abdomen soft and nontender with normal bowel sounds present Bilateral lower extremities 1+ pitting edematous, right leg larger than left but nontender Bilateral lower extremities exhibited darkened skin color likely secondary to venous stasis dermatitis Skin warm and dry - Patient Status Disposition: Home, Self-Care Condition: Good Overall status at discharge: patient is back to baseline - Discharge Instructions Follow Up With: Yan Villavicencio DO [Primary Care Provider] - - Diet and Activity Activity: increase activity as tolerated Diet: low fat, low cholesterol, low salt diet
--- NOTE | 2018-08-06 11:39 | Cardiology Progress Note ---
Date of Encounter: 08/06/18 Time of Encounter: 08:30 Assessment and Plan (1) Atrial fibrillation and flutter Current Visit: Yes Status: Acute Per cardiology: -History of recurrent Afib with RVR. -S/p DCCV yesteday. -Remains SR. -Echocardiogram from 05/2017 showed EF 60% and mild diastolic dysfunction. -Rhythmol was increased this admission to 225mg Q8 hours, has received 3 total increased doeses. -ECG today with SB, hr 59. QRS 126ms. ECGs reviewed with Dr.John Nolan. -ON coumadin for anticoagulation. -Discussed and reviewed ECGs with Dr.John Nolan, ok to sign off. -Cardiology will follow in outpatient setting. FOllow up set. (2) Essential hypertension Current Visit: No Status: Chronic Per cardiology: -BP controlled. -Will continue to monitor in outpatient setting. Discussion w patient/family: The assessment and plan as outlined above was discussed with the patient who expressed understanding and agreement. All questions were answered. Thank you for involving us in the care of your patient. Please call with any questions. Discussed and reviewed with Dr.John Nolan. Subjective Principal diagnosis: a.fib Interval history: Patient is s/p DCCV yesterday. Remains SR. ON increased dose of rhythmol. Patient denies complaints. Objective Vital Signs, Last 4 Hours Pulse Ox 08/06/18 09:00 97 Vital Signs Temperature 97.9 F 08/04/18 14:43 Pulse Rate 121 08/04/18 14:43 Respiratory Rate 20 08/04/18 14:43 Blood Pressure 103/66 08/04/18 14:43 O2 Sat by Pulse Oximetry 97 08/04/18 14:43 Temperature 97.6 F 08/06/18 07:05 Pulse Rate 71 08/06/18 07:05 Respiratory Rate 16 08/06/18 07:05 Blood Pressure 142/86 08/06/18 07:05 O2 Sat by Pulse Oximetry 97 08/06/18 09:00 Oxygen Delivery Oxygen Delivery Room Air General: Conversant, No Apparent Distress HEENT: Atraumatic, Normocephaly, Mucus Membranes Moist Neck: No JVD, Normal carotid pulses Cardiac: Reg Rate and Rhythm, Normal S1 and S2, No Murmur Lungs: Normal Breath Sounds, No Wheeze, Rales, Rhonchi Neuro: Alert and responsive, No focal deficits noted Abdomen: Soft, Non-Tender Skin: No rashes noted on visualized skin Musculoskeletal: No Chest Wall Tenderness Extremities: No Clubbing, No Cyanosis, No Edema, Normal Pulses Results 08/05/18 03:36 08/05/18 03:36 Active Medications Acetaminophen (Tylenol) 650 mg PO Q6HR PRN PRN Reason: Mild Pain/Fever Stop: 02/03/19 20:58 Aspirin (Aspirin Ec) 81 mg PO DAILY [facility] Stop: 02/04/19 09:01 Last Admin: 08/06/18 09:01 Dose: 81 mg Atorvastatin Calcium (Lipitor) 40 mg PO QPM [facility]MEN Stop: 02/03/19 23:16 Last Admin: 08/05/18 17:04 Dose: 40 mg Dextrose/Water (Dextrose 50% (Syg)) 25 ml IVP AD PRN PRN Reason: Hypoglycemia Stop: 02/03/19 21:07 Glucagon (Glucagen) 1 mg IM ONCE PRN PRN Reason: Hypoglycemia Stop: 02/03/19 21:07 Glucose (Gluctose) 15 gm PO ONCE PRN PRN Reason: Hypoglycemia Stop: 02/03/19 21:07 Glucose (Gluctose) 30 gm PO ONCE PRN PRN Reason: Hypoglycemia Stop: 02/03/19 21:07 Dextrose (Dextrose 5%) 1,000 mls @ 100 mls/hr IVC .Q10H PRN PRN Reason: HYPOGLYCEMIA Stop: 02/03/19 21:07 Diltiazem HCl 50 mg/ Sodium (Chloride) 50 mls @ 10 mls/hr IVC .Q5H [facility]MEN; Protocol Stop: 02/03/19 15:16 Last Admin: 08/06/18 09:05 Dose: Not Given Insulin Human Lispro (Humalog) 0 units SQ TIDAC [facility]; Protocol Stop: 02/04/19 07:31 Last Admin: 08/06/18 08:55 Dose: Not Given Insulin Human Lispro (Humalog) 0 units SQ HS [facility]; Protocol Stop: 02/03/19 21:10 Last Admin: 08/05/18 20:58 Dose: Not Given Naloxone HCl (Narcan) 0.4 mg IVP Q2MIN PRN PRN Reason: SEE COMMENTS Stop: 02/03/19 20:58 Propafenone HCl (Rhythmol) 225 mg PO Q8HR CARMEN Stop: 02/04/19 16:01 Last Admin: 08/06/18 09:01 Dose: 225 mg Warfarin Sodium (Coumadin Perpt) 1 each PO DAILY@1800 PRN PRN Reason: SEE COMMENTS Stop: 02/04/19 18:01 Laboratory Tests 08/05/18 08/05/18 03:36 03:36 Hgb 14.5 D Creatinine 0.84 - Imaging and Cardiology Chest Xray: report reviewed - EKG Interpretation EKG results cardiology: personally reviewed (ECG today with SB, HR 59. QRS 126ms.), other (Telemetry reveiwed with average HR previous 12 hours noted to be 63, SR. PVCs and PACs noted.) Consult Discharge Plan - Plan Instructions: Propafenone (By mouth) Referrals: Yan Villavicencio DO [Primary Care Provider] - (Please call primary care physician on Wednesday and schedule a follow up appointment for 7-10 days.) Prescriptions: Propafenone [Rhythmol] 225 mg PO Q8HR 30 Days #90 tablet
--- NOTE | 2018-08-06 11:54 | Electrocardiograph Report ---
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
--- NOTE | 2018-08-06 12:01 | Electrocardiograph Report ---
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
--- NOTE | 2018-08-06 12:01 | Electrocardiograph Report ---
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
--- NOTE | 2018-08-06 12:04 | Electrocardiograph Report ---
[address] [place], [place] [address] Test Date: 2018-08-04 Pat Name: Delon De La Rosa Department: EXAMC1 Room: 3B36 Gender: M Patient Representative: : 1950 Requested By: Stephania Hernandez Order Number: [id number] Reading MD: Dorita Goss Measurements Intervals [place] Rate: 133 P: 260 [place]: 130 QRS: -22 QRSD: 105 T: 64 QT: 355 QTc: 529 Interpretive Statements Supraventricular tachycardia Borderline left axis deviation Abnormal R-wave progression, late transition Repol abnrm suggests ischemia Artifact Electronically Signed On 08-06-2018 12:02:30 EDT by Dorita Goss
--- NOTE | 2018-08-06 12:14 | Electrocardiograph Report ---
[address] [address] Test Date: 2018-08-04 Pat Name: Delon De La Rosa Department: EXAMC1 Room: 3B Gender: M Key Account Executive: : 1950 Requested By: John Boo Order Number: [id number] Reading MD: Dorita Goss Measurements Intervals [place] Rate: 124 P: 261 [place]: 61 QRS: 39 QRSD: 161 T: 65 QT: 368 QTc: 529 Interpretive Statements ATRIAL FLUTTER/TACHYCARDIA WITH RAPID VENTRICULAR RESPONSE IVCD Electronically Signed On 08-06-2018 12:12:23 EDT by Dorita Goss
--- NOTE | 2018-08-09 17:10 | Electrocardiograph Report ---
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
== END 2018-08-06 11:52 | disposition home or self-care (01) ==
LOC: 3BNU 14:36 → EMEROOARM 14:36 → 3BNU 20:28
PROVIDERS: ADMIT Internal Medicine; ATTEND Internal Medicine